=== PATIENT | female | born 1955 | race Caucasian/White ===

== ENCOUNTER → 2017-02-24 | Outpatient (CLI) | payer OTHER ==
[~2017-02-24] MED LIST: CALC0.5C PO; CALCTAB7 PO; CYAN10004 PO; GLUC10007 PO; HYDR-5688 PO; MULT-610 PO; PARO10TA4 PO; VITACAP26 PO; ZOLP5TAB6 PO
[2017-02-24 19:39] LABS: THYROID STIMULATING HORMONE 0.794 uIu/ml (0.300-4.500)
== END | disposition home or self-care (01) ==
LOC: C.LAB 18:32
PROVIDERS: ATTEND Internal Medicine Endocrinology, Diabetes & Metabolism
DX: E03.9 Hypothyroidism, unspecified (principal)

== ENCOUNTER → 2017-05-06 | Outpatient (CLI) | payer OTHER ==
[~2017-05-06] MED LIST changes: -CALC0.5C PO; +CALC0.5C17 PO
[2017-05-06 13:20] LABS: BASO % 0.3 %; BASO ABS # 0.02 K/uL (0-0.2); COMPLETE YES; EOS % 0.7 %; HEMATOCRIT 34.5 % (37-47); IG% 0.4 %; LYMPH % 20.2 %; LYMPH ABS # 1.41 K/uL (1.2-3.4); MEAN CELL VOLUME 92.2 fL (80-100); MEAN CORPUSCULAR HGB CONC 33.6 g/dl (32-36); MEAN PLATELET VOLUME 9.5 fL (7.4-10.4); MONO % 11.2 %; NEUT % 67.2 %; PLATELET COUNT 298 K/uL (130-400); RED BLOOD COUNT 3.74 M/uL (4.2-5.4); WHITE BLOOD COUNT 6.97 K/uL (4.8-10.8)
[2017-05-06 14:03] LABS: ALT/SGPT 19 U/L (12-78); BLOOD UREA NITROGEN 24 mg/dl (7-18); BUN/CREATININE RATIO 28.3 (10-20); CALCIUM 9.1 mg/dl (8.5-10.1); CARBON DIOXIDE 28 mmol/L (21-32); CHLORIDE 105 mmol/L (98-107); CHOLESTEROL 182 mg/dl (0-200); CREATININE 0.86 mg/dl (0.60-1.20); GLUCOSE 104 mg/dl (70-99); SODIUM 140 mmol/L (136-145); TRIGLYCERIDES 70 mg/dl (0-150); VERY LOW DENSITY LIPOPROT CALC 14 mg/dl
[2017-05-06 14:06] LABS: ALKALINE PHOSPHATASE 72 U/L (45-117); AST/SGOT 17 U/L (15-37); CHOLESTEROL/HDL RATIO 3.1; HDL CHOLESTEROL 58 mg/dl; LDL CHOLESTEROL CALCULATED 110 mg/dl
== END | disposition home or self-care (01) ==
LOC: C.LABBC 10:49
PROVIDERS: ATTEND Internal Medicine
DX: E55.9 Vitamin D deficiency, unspecified (principal); D64.9 Anemia, unspecified

== ENCOUNTER → 2017-06-02 | Outpatient (CLI) | payer OTHER | END | disposition home or self-care (01) | LOC: C.MAMM 09:04 | PROVIDERS: ATTEND Internal Medicine | DX: M81.0 Age-related osteoporosis without current pathological fracture (principal); E55.9 Vitamin D deficiency, unspecified ==

== ENCOUNTER → 2017-08-14 | Outpatient (CLI) | payer OTHER ==
[~2017-08-14] MED LIST changes: +CALC0.5C PO; -CALC0.5C17 PO
[2017-08-14 18:10] LABS: BLOOD UREA NITROGEN 28 mg/dl (7-18)
== END | disposition home or self-care (01) ==
LOC: C.LAB1850 15:58
PROVIDERS: ATTEND Internal Medicine Endocrinology, Diabetes & Metabolism
DX: Z00.00 Encounter for general adult medical examination without abnormal findings (principal); Z86.39 Personal history of other endocrine, nutritional and metabolic disease; M81.0 Age-related osteoporosis without current pathological fracture

== ENCOUNTER → 2017-08-19 | Day surgery (SDC) | payer OTHER ==
[~2017-08-19] VITALS: Ht 162.6 cm; Wt 59.0 kg
[~2017-08-19] MED LIST changes: +ZOLEDRONIC ACID INJ 5 MG in EMPTY BAG 0 ML IV SCH
[2017-08-19 14:31] VITALS: BP 124/72; PULSE 98; TEMP 36.6; O2SAT 98; Ht 162.6 cm; Wt 59.0 kg
[2017-08-19 15:09] LABS: CALCIUM 8.9 mg/dl (8.5-10.1)
[2017-08-19 15:18] LABS: CREATININE 0.75 mg/dl (0.60-1.20)
== END | disposition home or self-care (01) ==
LOC: C.MTU 14:23
PROVIDERS: ATTEND Internal Medicine Endocrinology, Diabetes & Metabolism
DX: M81.0 Age-related osteoporosis without current pathological fracture (principal)

== ENCOUNTER 2022-01-10 20:21 | Inpatient (IN) ==
--- NOTE | 2022-01-10 20:43 | Emergency Department Note ---
Impression & Plan Severe sepsis, Acute dehydration, Acute renal failure (ARF) ED Provider Note NAME: VAN FRANCOIS AGE: 66 SEX: F : 1955 ARRIVES VIA: Walk-In INFORMANT: Patient, ED PROVIDER(S): Sha Ramirez MD Chief Complaint: Weakness HPI: Patient presents with concern for weakness fatigue and dehydration related symptoms. The patient states that her symptoms began 4 days prior and the patient had approximately 2 episodes of vomiting. Nonbloody nonbilious. Patient denies any alcohol tobacco or drug use recent changes medications, known sick contacts or recent travel. The patient did have a fever but this only developed today being as high as 101. The patient did not take anything for the fever at home. Patient denies any chest pain shortness of breath or cough. The patient denies any upper respiratory symptoms sore throat or congestion. Patient denies any ear pain. Patient does have some mild upper abdominal pain. It is nonradiating. Patient denies any dysuria or hematuria. Patient is patien t does state that she was prescribed a medication by the doctor but she had called and explained her symptoms and thus was referred here for further evaluation and treatment. ROS: See HPI for pertinent positives and negatives. A total of 10 systems were reviewed and otherwise negative. Past medical history: See below Surgical history: See below Social history: See below Physical Exam: GENERAL: NAD, wearing a mask, non-toxic. EYE EXAM: Normal conjunctiva. PERRL, no anisocoria and EOM's grossly intact w/o pain. NECK: Supple, no nuchal rigidity, no adenopathy, non-tender. No signs of mening ismus. LUNGS: Clear to auscultation. Normal chest wall mechanics. HEART: Tachycardic and regular, no MRG. ABDOMEN: Abdomen soft, left-sided abdominal discomfort, normo-active bowel sounds, no masses, no rebound or guarding. BACK: No CVA TTP. SKIN: No rashes and no bruising. UPPER EXTREMITIES: Upper extremities are grossly normal. LOWER EXTREMITIES: Grossly normal, no edema. NEURO EXAM: A&O x3, cranial nerves II-XII grossly intact, normal speech, moves all 4 extremities on command w/o issue. Differential diagnoses: Sepsis, UTI, pneumonia, metabolic, electrolyte abnormalities, cardiac sources, intracerebral event, toxicologic, neurologic, as well as other pathologies. Course: Patient was seen and evaluated the bedside. Full history physical exam was performed. EKG interpreted by me Sinus tachycardia, rate of 106, normal intervals, normal axis, no ST changes or T WI Imaging Studies: Chest x-ray with no obvious pneumonia. CT abdomen pelvis Mild left-sided hydronephrosis with a possible 6 mm obstructing calculus. Urinary bladder is decompressed uterus and adnexa are unremarkable. No free fluid in the abdomen. Bowel loops are nondilated with mild diffuse edema involving the small bowel and colon which is nonspecific but may be indicative of gastroenteritis or ileus. No pneumoperitoneum. No fluid collection or abscess. Liver is enlarged. Gallbladder pancreas spleen and adrenals are grossly unremarkable. No focal liver lesion is identified. Cardiac monitoring: An order was placed for continuous cardiac monitoring. The monitor shows a rate of 102 with tachycardic rhythm. MDM: Patient presented with tachycardia and hypotension. Given his concerns I did order IV fluids antibiotics and blood work to be completed. The patient otherwise looks modestly well even in light of the patient's hypotension. The patient was not altered. The patient's blood work showed a white count of 13. The patient's platelet count was borderline low at 128. Patient's kidney f unction did show concern for acute renal failure. Patient did receive a noncontrast CT scan. The patient did receive an additional 1500 and given her hypotension was given another liter. Patient's initial lactate was greater than 4. Repeat was less than 4. Upon reassessing the patient multiple times the patient did not look unwell but I did tell the patient that her blood work numbers were concerning. Patient CT abdomen pelvis did show concern for possible retained stone. I did speak with the urology service Jude Smith PA-C who did speak with Dr. Lopez. I did speak the on-call hospitalist given the patient's Pro-Davon was significantly elevated did add MRSA coverage in form of daptomycin. The patient's blood pressure was still low after receiving more than 3 L of IV fluids the decision was made to order Levophed. Patient was subsequently admitted to the intensive care unit pending replete blood work that was ordered by the medicine service. Critical Care: I have personally spent 77 minutes of critical care time in direct management of this patient. This includes bedside care, interpretation of diagnostic studies, and testing, discussion with consultants, patient, and family members, and other require inpatient management activities. This 77 minutes is in excess of all separately billable procedures. Past Med/Surg History Medical History History of hyperparathyroidism Hypothyroidism Surgical History History of gynecologic surgery History of parathyroid surgery S/P thyroid surgery THYROID LOBECTOMY RIGHT LOBE S/P tonsillectomy S/P tooth extraction Family History Grandmother (Paternal) Diabetes Uncle Diabetes Brother Stroke Denies family history of Ovarian cancer Prostate cancer Myocardial infarction Breast cancer Lung cancer Colorectal cancer Hypertension Social History Smoking Status: Never smoker Second Hand Exposure: Yes; Hx Alcohol Use: Yes Alcohol type: hard liquor Alcohol type Comment: mixed drink Alcohol Intake Frequency: Monthly or Less Hx Substance Use: No Preferred Language: Telugu Communication Ability: Effective Visual Impairment: Limited Hearing Ability: Normal Beliefs That Will Affect Care: None marital status: Single Current Living Situation: Alone current occupational status: employed How many Children do You have: 0 Feels Safe at Home: Yes Childhood Exposure to Second-Hand Smoke: Yes caffeine: Yes (drinks coffee daily ) Dental Care, Regularly: No Physical Activity Frequency: Daily Physical Activity Frequency Comment: walking Seatbelt Use: always Sunscreen Use: Yes Allergies Allergies Allergy/AdvReac Type Severity Reaction Status Date / Time No Known Drug Allergies Allergy nkda Verified 01/10/22 23:06 Home Meds Home Medications Medication Instructions Recorded Confirmed ascorbic acid (vitamin C) 500 mg 500 mg PO DAILY cap 05/13/19 01/10/22 capsule calcium carbonate 600 mg calcium 1,200 mg PO DAILY tab 05/13/19 01/10/22 (1,500 mg) tablet cholecalciferol (vitamin D3) 50 2,000 units PO DAILY #90 tab 05/13/19 01/10/22 mcg (2,000 unit) tablet cyanocobalamin (vitamin B-12) 2,000 mcg PO DAILY tab 05/13/19 01/10/22 2,000 mcg tablet oxbpoyjpgmzw-[id number]-[id number] tablet 1 tab PO DAILY 06/06/21 01/10/22 acetaminophen 500 mg tablet 1,000 mg PO Q6H PRN 01/10/22 01/10/22 (Tylenol Extra Strength) Previous Rx's Medication Instructions Recorded paroxetine HCl 10 mg tablet 10 mg PO DAILY #90 tab 01/11/21 levothyroxine 75 mcg tablet See Rx Instructions PO DAILY #15 07/10/21 tab calcitriol 0.5 mcg capsule 1 mcg PO DAILY #60 cap 11/02/21 levothyroxine 50 mcg tablet See Rx Instructions PO DAILY #15 11/12/21 tab ondansetron HCl 4 mg tablet 4 mg PO TID PRN 3 Days #10 tab 01/08/22 Results & Data (ED) Vital Signs Vital Signs - 24 hr 01/10/22 20:30 01/10/22 20:42 01/10/22 20:50 Temperature 37.5 C Temperature Source Oral Pulse Rate 117 H 101 H 98 H Pulse Rate from SpO2 Sensor 100 H Respiratory Rate 18 18 21 Respiratory Effort / Characteristics Non-Labored Spontaneous Respiratory Depth Normal Respiratory Pattern Regular Blood Pressure 69/39 L 65/35 L Blood Pressure Mean 49 45 Blood Pressure Position Sitting Pulse Oximetry 95 96 Oxygen Delivery Method Room Air Sepsis Recent Fever Within 48 Hours No Sepsis New/Unexplained Change in Mental Status No Sepsis Action Taken by Nursing No Action Required 01/10/22 20:55 01/10/22 21:00 01/10/22 21:07 Temperature Temperature Source Pulse Rate 97 H 97 H Pulse Rate from SpO2 Sensor 96 H 91 H Respiratory Rate 23 17 18 Respiratory Effort / Characteristics Non-Labored Spontaneous Respiratory Depth Respiratory Pattern Blood Pressure 67/36 L 63/38 L Blood Pressure Mean 46 46 Blood Pressure Position Pulse Oximetry 96 92 98 Oxygen Delivery Method Room Air Sepsis Recent Fever Within 48 Hours Sepsis New/Unexplained Change in Mental Status Sepsis Action Taken by Nursing 01/10/22 21:10 01/10/22 21:14 01/10/22 21:20 Temperature Temperature Source Pulse Rate 93 H 95 H 95 H Pulse Rate from SpO2 Sensor 91 H 94 H Respiratory Rate 21 18 18 Respiratory Effort / Characteristics Respiratory Depth Respiratory Pattern Blood Pressure 67/39 L 68/39 L Blood Pressure Mean 48 48 Blood Pressure Position Pulse Oximetry 99 98 98 Oxygen Delivery Method Room Air Sepsis Recent Fever Within 48 Hours Sepsis New/Unexplained Change in Mental Status Sepsis Action Taken by Nursing 01/10/22 21:23 01/10/22 21:30 01/10/22 21:40 Temperature Temperature Source Pulse Rate 90 87 98 H Pulse Rate from SpO2 Sensor 90 87 94 H Respiratory Rate 23 24 22 Respiratory Effort / Characteristics Respiratory Depth Respiratory Pattern Blood Pressure 69/41 L 73/44 L 67/46 L Blood Pressure Mean 50 53 53 Blood Pressure Position Pulse Oximetry 98 99 96 Oxygen Delivery Method Sepsis Recent Fever Within 48 Hours Sepsis New/Unexplained Change in Mental Status Sepsis Action Taken by Nursing 01/10/22 21:50 01/10/22 22:10 01/10/22 22:12 Temperature Temperature Source Pulse Rate 97 H 74 86 Pulse Rate from SpO2 Sensor 90 86 85 Respiratory Rate 20 15 22 Respiratory Effort / Characteristics Respiratory Depth Respiratory Pattern Blood Pressure 70/42 L 70/41 L Blood Pressure Mean 51 50 Blood Pressure Position Pulse Oximetry 95 94 96 Oxygen Delivery Method Sepsis Recent Fever Within 48 Hours Sepsis New/Unexplained Change in Mental Status Sepsis Action Taken by Nursing 01/10/22 22:20 01/10/22 22:30 01/10/22 22:36 Temperature Temperature Source Pulse Rate 84 89 68 Pulse Rate from SpO2 Sensor 84 88 87 Respiratory Rate 23 21 22 Respiratory Effort / Characteristics Respiratory Depth Respiratory Pattern Blood Pressure 70/43 L 71/41 L Blood Pressure Mean 52 51 Blood Pressure Position Pulse Oximetry 95 95 96 Oxygen Delivery Method Sepsis Recent Fever Within 48 Hours Sepsis New/Unexplained Change in Mental Status Sepsis Action Taken by Nursing 01/10/22 22:40 01/10/22 22:50 01/10/22 22:51 Temperature Temperature Source Pulse Rate 87 80 67 Pulse Rate from SpO2 Sensor 87 87 89 Respiratory Rate 23 23 23 Respiratory Effort / Characteristics Respiratory Depth Respiratory Pattern Blood Pressure 71/44 L Blood Pressure Mean 53 Blood Pressure Position Pulse Oximetry 96 95 95 Oxygen Delivery Method Sepsis Recent Fever Within 48 Hours Sepsis New/Unexplained Change in Mental Status Sepsis Action Taken by Nursing 01/10/22 22:52 01/10/22 23:00 01/10/22 23:10 Temperature Temperature Source Pulse Rate 88 90 89 Pulse Rate from SpO2 Sensor 88 90 89 Respiratory Rate 23 21 20 Respiratory Effort / Characteristics Respiratory Depth Respiratory Pattern Blood Pressure 69/45 L 59/41 L 70/39 L Blood Pressure Mean 53 47 49 Blood Pressure Position Pulse Oximetry 96 96 96 Oxygen Delivery Method Sepsis Recent Fever Within 48 Hours Sepsis New/Unexplained Change in Mental Status Sepsis Action Taken by Nursing 01/10/22 23:20 01/10/22 23:30 01/10/22 23:40 Temperature Temperature Source Pulse Rate 77 88 86 Pulse Rate from SpO2 Sensor 88 Respiratory Rate 23 20 23 Respiratory Effort / Characteristics Respiratory Depth Respiratory Pattern Blood Pressure 72/45 L 71/50 L 72/43 L Blood Pressure Mean 54 57 52 Blood Pressure Position Pulse Oximetry 97 98 Oxygen Delivery Method Sepsis Recent Fever Within 48 Hours Sepsis New/Unexplained Change in Mental Status Sepsis Action Taken by Nursing 01/10/22 23:50 01/11/22 00:00 01/11/22 00:10 Temperature Temperature Source Pulse Rate 88 90 90 Pulse Rate from SpO2 Sensor Respiratory Rate 20 23 20 Respiratory Effort / Characteristics Respiratory Depth Respiratory Pattern Blood Pressure 72/42 L 76/42 L 69/42 L Blood Pressure Mean 52 53 51 Blood Pressure Position Pulse Oximetry 96 Oxygen Delivery Method Sepsis Recent Fever Within 48 Hours Sepsis New/Unexplained Change in Mental Status Sepsis Action Taken by Nursing 01/11/22 00:20 01/11/22 00:30 01/11/22 00:40 Temperature Temperature Source Pulse Rate 88 88 Pulse Rate from SpO2 Sensor 88 88 88 Respiratory Rate 24 23 26 H Respiratory Effort / Characteristics Respiratory Depth Respiratory Pattern Blood Pressure 75/46 L 75/43 L 77/47 L Blood Pressure Mean 55 53 57 Blood Pressure Position Pulse Oximetry 91 94 93 Oxygen Delivery Method Sepsis Recent Fever Within 48 Hours Sepsis New/Unexplained Change in Mental Status Sepsis Action Taken by Nursing 01/11/22 00:46 01/11/22 00:50 Temperature 36.8 C Temperature Source Oral Pulse Rate 89 Pulse Rate from SpO2 Sensor 90 Respiratory Rate 20 Respiratory Effort / Characteristics Respiratory Depth Respiratory Pattern Blood Pressure 87/44 L Blood Pressure Mean 58 Blood Pressure Position Pulse Oximetry 93 Oxygen Delivery Method Sepsis Recent Fever Within 48 Hours Sepsis New/Unexplained Change in Mental Status Sepsis Action Taken by [facility] Medications Current Medication List: was personally reviewed by me Laboratory Data Attestation: I reviewed the patient's lab results. Result diagrams: 01/11/22 00:25 01/10/22 20:47 Lab Results 01/10/22 01/10/22 01/10/22 Range/Units 20:47 20:47 20:47 WBC 13.61 H (4.8-10.8) K/uL RBC 3.35 L (4.2-5.4) M/uL Hgb 10.6 L (12.0-16.0) g/dL Hct 30.8 L (37-47) % MCV 91.9 (80-100) fL MCH 31.6 (25-34) pg MCHC 34.4 (32-36) g/dL RDW Std Deviation 47.6 H (36.4-46.3) fL RDW Coeff of Tucker 14.2 (11.5-14.5) % Plt Count 128 L (130-400) K/uL MPV 10.7 H (7.4-10.4) fL Immature Gran % (Auto) 5.1 % Neut % (Auto) 91.3 % Lymph % (Auto) 2.6 % [place] % (Auto) 1.0 % Eos % (Auto) 0.0 % Baso % (Auto) 0.0 % Neut # (Auto) 12.43 H (1.4-6.5) K/uL Lymph # (Auto) 0.36 L (1.2-3.4) K/uL [place] # (Auto) 0.13 (0.11-0.59) K/uL Eos # (Auto) 0.00 (0-0.5) K/uL Baso # (Auto) 0.00 (0-0.2) K/uL Immature Gran # (Auto) 0.69 H (0.00-0.02) K/uL Toxic Vacuolation 2+ Dohle Bodies 2+ PT 10.6 (9.0-12.0) Seconds INR 1.0 (0.9-1.1) APTT 31.4 H (21.0-31.0) Seconds PTT Ratio 1.1 Sodium 124 L (136-145) mmol/L Potassium 4.2 (3.5-5.1) mmol/L Chloride 87 L (98-107) mmol/L Carbon Dioxide 20 L (21-32) mmol/L Anion Gap 17 H (3-11) BUN 65 H (6-23) mg/dl Creatinine 5.27 H* (0.6-1.2) mg/dl Est Cr Clr Drug Dosing 9.2 ml/min Est GFR ( Amer) 9.2 ml/min Est GFR (Non-Af Amer) 7.9 ml/min BUN/Creatinine Ratio 12.3 (10-20) Glucose 85 (70-99(Fasting)) mg/dl Lactate (0.4-2.0) mmol/L Calcium 8.7 (8.5-10.1) mg/dl Magnesium 1.8 (1.7-2.4) mg/dl Total Bilirubin 1.1 H (0.2-1.0) mg/dl AST 105 H (13-39) U/L ALT 36 (7-52) U/L Alkaline Phosphatase 156 H (34-104) U/L Total Protein 6.3 (6.0-8.3) gm/dl Albumin 3.2 L (3.4-5.0) gm/dl Globulin 3.1 (2.5-4.0) gm/dl Albumin/Globulin Ratio 1.0 (0.9-2) Procalcitonin (0-0.5) ng/ml Urine Color Urine Appearance (Clear) Urine pH (4.5-7.5) Ur Specific [place] (1.000-1.030) Urine Protein (Negative) Urine Glucose (UA) (Negative) Urine Ketones (Negative) Urine Blood (Negative) Urine Nitrite (Negative) Urine Bilirubin (Negative) Urine Urobilinogen (Negative) Ur Leukocyte Esterase (Negative) Urine WBC (Auto) (0-5) /hpf Urine RBC (Auto) (0-4) /hpf U Hyaline Cast (Auto) (0-5) /lpf U Epithel Cells (Auto) (0-5) /lpf Urine Bacteria (Auto) (Negative) Ur Renal Epithelial Cell Calcium Oxalate Crystal (None Prsent) Granular Casts (0) /lpf Urine Yeast SARS-CoV-2, RNA, NAAT (NEGATIVE) 01/10/22 01/10/22 01/10/22 Range/Units 20:47 20:51 20:55 WBC (4.8-10.8) K/uL RBC (4.2-5.4) M/uL Hgb (12.0-16.0) g/dL Hct (37-47) % MCV (80-100) fL MCH (25-34) pg MCHC (32-36) g/dL RDW Std Deviation (36.4-46.3) fL RDW Coeff of Tucker (11.5-14.5) % Plt Count (130-400) K/uL MPV (7.4-10.4) fL Immature Gran % (Auto) % Neut % (Auto) % Lymph % (Auto) % [place] % (Auto) % Eos % (Auto) % Baso % (Auto) % Neut # (Auto) (1.4-6.5) K/uL Lymph # (Auto) (1.2-3.4) K/uL [place] # (Auto) (0.11-0.59) K/uL Eos # (Auto) (0-0.5) K/uL Baso # (Auto) (0-0.2) K/uL Immature Gran # (Auto) (0.00-0.02) K/uL Toxic Vacuolation Dohle Bodies PT (9.0-12.0) Seconds INR (0.9-1.1) APTT (21.0-31.0) Seconds PTT Ratio Sodium (136-145) mmol/L Potassium (3.5-5.1) mmol/L Chloride (98-107) mmol/L Carbon Dioxide (21-32) mmol/L Anion Gap (3-11) BUN (6-23) mg/dl Creatinine (0.6-1.2) mg/dl Est Cr Clr Drug Dosing ml/min Est GFR ( Amer) ml/min Est GFR (Non-Af Amer) ml/min BUN/Creatinine Ratio (10-20) Glucose (70-99(Fasting)) mg/dl Lactate 4.2 H* (0.4-2.0) mmol/L Calcium (8.5-10.1) mg/dl Magnesium (1.7-2.4) mg/dl Total Bilirubin (0.2-1.0) mg/dl AST (13-39) U/L ALT (7-52) U/L Alkaline Phosphatase (34-104) U/L Total Protein (6.0-8.3) gm/dl Albumin (3.4-5.0) gm/dl Globulin (2.5-4.0) gm/dl Albumin/Globulin Ratio (0.9-2) Procalcitonin > 200.00 H (0-0.5) ng/ml Urine Color Urine Appearance (Clear) Urine pH (4.5-7.5) Ur Specific [place] (1.000-1.030) Urine Protein (Negative) Urine Glucose (UA) (Negative) Urine Ketones (Negative) Urine Blood (Negative) Urine Nitrite (Negative) Urine Bilirubin (Negative) Urine Urobilinogen (Negative) Ur Leukocyte Esterase (Negative) Urine WBC (Auto) (0-5) /hpf Urine RBC (Auto) (0-4) /hpf U Hyaline Cast (Auto) (0-5) /lpf U Epithel Cells (Auto) (0-5) /lpf Urine Bacteria (Auto) (Negative) Ur Renal Epithelial Cell Calcium Oxalate Crystal (None Prsent) Granular Casts (0) /lpf Urine Yeast SARS-CoV-2, RNA, NAAT NEGATIVE (NEGATIVE) 01/10/22 01/10/22 01/11/22 Range/Units 22:34 23:28 00:25 WBC 25.34 H D (4.8-10.8) K/uL RBC 2.75 L (4.2-5.4) M/uL Hgb 8.8 L (12.0-16.0) g/dL Hct 24.8 L (37-47) % MCV 90.2 (80-100) fL MCH 32.0 (25-34) pg MCHC 35.5 (32-36) g/dL RDW Std Deviation 47.8 H (36.4-46.3) fL RDW Coeff of Tucker 14.4 (11.5-14.5) % Plt Count 105 L (130-400) K/uL MPV 11.0 H (7.4-10.4) fL Immature Gran % (Auto) % Neut % (Auto) % Lymph % (Auto) % [place] % (Auto) % Eos % (Auto) % Baso % (Auto) % Neut # (Auto) (1.4-6.5) K/uL Lymph # (Auto) (1.2-3.4) K/uL [place] # (Auto) (0.11-0.59) K/uL Eos # (Auto) (0-0.5) K/uL Baso # (Auto) (0-0.2) K/uL Immature Gran # (Auto) (0.00-0.02) K/uL Toxic Vacuolation Dohle Bodies PT (9.0-12.0) Seconds INR (0.9-1.1) APTT (21.0-31.0) Seconds PTT Ratio Sodium (136-145) mmol/L Potassium (3.5-5.1) mmol/L Chloride (98-107) mmol/L Carbon Dioxide (21-32) mmol/L Anion Gap (3-11) BUN (6-23) mg/dl Creatinine (0.6-1.2) mg/dl Est Cr Clr Drug Dosing ml/min Est GFR ( Amer) ml/min Est GFR (Non-Af Amer) ml/min BUN/Creatinine Ratio (10-20) Glucose (70-99(Fasting)) mg/dl Lactate 3.1 H* (0.4-2.0) mmol/L Calcium (8.5-10.1) mg/dl Magnesium (1.7-2.4) mg/dl Total Bilirubin (0.2-1.0) mg/dl AST (13-39) U/L ALT (7-52) U/L Alkaline Phosphatase (34-104) U/L Total Protein (6.0-8.3) gm/dl Albumin (3.4-5.0) gm/dl Globulin (2.5-4.0) gm/dl Albumin/Globulin Ratio (0.9-2) Procalcitonin (0-0.5) ng/ml Urine Color Dark Yellow Urine Appearance Turbid A (Clear) Urine pH 5.0 (4.5-7.5) Ur Specific [place] 1.025 (1.000-1.030) Urine Protein 2+ H (Negative) Urine Glucose (UA) Negative (Negative) Urine Ketones Trace H (Negative) Urine Blood 3+ H (Negative) Urine Nitrite Negative (Negative) Urine Bilirubin 1+ H (Negative) Urine Urobilinogen Negative (Negative) Ur Leukocyte Esterase 2+ H (Negative) Urine WBC (Auto) >30 H (0-5) /hpf Urine RBC (Auto) 5-10 H (0-4) /hpf U Hyaline Cast (Auto) 1-5 (0-5) /lpf U Epithel Cells (Auto) >30 H (0-5) /lpf Urine Bacteria (Auto) 2+ H (Negative) Ur Renal Epithelial Cell Not Reportable Calcium Oxalate Crystal Present A (None Prsent) Granular Casts 5-10 H (0) /lpf Urine Yeast Not Reportable SARS-CoV-2, RNA, NAAT (NEGATIVE) Administered Medications Norepinephrine Bitartrate (Levophed/D5w) 8 mg in 508 mls @ 10.592 mls/hr IV .Q24H STACIA; Protocol Stop: 02/09/22 23:44 Last Admin: 01/11/22 00:21 Dose: 0.05 mcg/kg/min, 10.6 mls/hr Documented by: [id number] Cosigned by: [id number] Discontinued Medications Piperacillin Sod/Tazobactam Sod (Zosyn) 4.5 gm in 120 mls @ 240 mls/hr IV NOW ONE Stop: 01/10/22 21:16 Last Infusion: 01/10/22 21:30 Dose: 0 mls/hr Documented by: [id number] Admin: 01/10/22 20:57 Dose: 240 mls/hr Documented by: [id number] Sodium Chloride (Nss 1000ml) 1,000 mls @ 999 mls/hr IV .Q1H1M ONE Stop: 01/10/22 21:49 Last Infusion: 01/10/22 21:39 Dose: 0 mls/hr Documented by: [id number] Admin: 01/10/22 20:57 Dose: 999 mls/hr Documented by: [id number] Sodium Chloride (Nss) 500 mls @ 999 mls/hr IV .Q31M ONE Stop: 01/10/22 21:19 Last Infusion: 01/10/22 21:57 Dose: 0 mls/hr Documented by: [id number] Admin: 01/10/22 20:57 Dose: 999 mls/hr Documented by: [id number] Sodium Chloride (Nss 1000ml) 1,000 mls @ 999 mls/hr IV .Q1H1M ONE Stop: 01/10/22 22:49 Last Infusion: 01/10/22 23:03 Dose: 0 mls/hr Documented by: [id number] Admin: 01/10/22 21:56 Dose: 999 mls/hr Documented by: [id number] Sodium Chloride (Nss 1000ml) 1,000 mls @ 999 mls/hr IV .Q1H1M ONE Stop: 01/11/22 00:04 Last Infusion: 01/11/22 00:40 Dose: 0 mls/hr Documented by: [id number] Admin: 01/10/22 23:31 Dose: 999 mls/hr Documented by: [id number] Daptomycin 325 mg/ Syringe 6.5 mls @ 3.25 mls/min IV NOW ONE; Protocol Stop: 01/10/22 23:45 Last Admin: 01/11/22 00:21 Dose: 3.25 mls/min Documented by: [id number] Discharge Plan Visit Data Chief Complaint: Fever Stated Complaint: FEVER ED Provider: Sha Ramirez Discharge Problem: Severe sepsis, Acute dehydration, Acute renal failure (ARF) Patient Disposition: Admitted As Inpatient Discharge Instructions Interventions: ED Discharge Assessment Last Done: 01/11/22 00:44
[2022-01-10] MEDS ORDERED: PIPERACILL/TAZOBAC CONSULT ACTIVE PRN (20:47)
[2022-01-10] MEDS ORDERED: PIPERACILLIN/TAZOBACTAM 4.5 GM/120 ML BAG IV ONE (20:47)
[2022-01-10] MEDS ORDERED: SODIUM CHLORIDE 0.9% 1000ML 1,000 ML IV ONE ×3 (20:49→23:04)
[2022-01-10] MEDS ORDERED: SODIUM CHLORIDE 0.9% 500 ML IV ONE (20:49)
[2022-01-10 21:03] LABS: Hematocrit (blood only) 30.8 % (37-47); Hemoglobin 10.6 g/dL (12.0-16.0); Mean Corpuscular Hemoglobin 31.6 pg (25-34); Mean Corpuscular Hgb Conc 34.4 g/dL (32-36); Mean Corpuscular Volume 91.9 fL (80-100); Mean Platelet Volume 10.7 fL (7.4-10.4); Platelet Count 128 K/uL (130-400); RDW Coefficient of Variation 14.2 % (11.5-14.5); RDW Standard Deviation 47.6 fL (36.4-46.3); Red Blood Count 3.35 M/uL (4.2-5.4); White Blood Count 13.61 K/uL (4.8-10.8)
[2022-01-10 21:21] LABS: Dohle Bodies 2+; Immature Granulocytes # (auto) 0.69 K/uL (0.00-0.02); Immature Granulocytes % (auto) 5.1 %; Lymphocytes # (auto) 0.36 K/uL (1.2-3.4); Lymphocytes % (auto) 2.6 %; Monocytes # (auto) 0.13 K/uL (0.11-0.59); Neutrophils # (auto) 12.43 K/uL (1.4-6.5); Neutrophils % (auto) 91.3 %; Toxic Vacuolation 2+
[2022-01-10 21:35] LABS: Partial Thromboplastin Ratio 1.1; Partial Thromboplastin Time 31.4 Seconds (21.0-31.0); Prothrombin Time 10.6 Seconds (9.0-12.0)
[2022-01-10 21:48] LABS: Albumin Level 3.2 gm/dl (3.4-5.0); BUN Creatinine Ratio 12.3 (10-20); Bilirubin,Total 1.1 mg/dl (0.2-1.0); Calcium 8.7 mg/dl (8.5-10.1); Creatinine Clr Calc Pharmacy 9.2 ml/min; Est GFR (African American) 9.2 ml/min; Est GFR (Non-African American) 7.9 ml/min; Globulin 3.1 gm/dl (2.5-4.0); Magnesium 1.8 mg/dl (1.7-2.4); Potassium 4.2 mmol/L (3.5-5.1); Total Protein 6.3 gm/dl (6.0-8.3)
[2022-01-10] MEDS ORDERED: DAPTOmycin 325 MG in SYRINGE 0 ML IV ONE (23:44)
[2022-01-10] MEDS ORDERED: STAT IV Infusion **Titration per Protocol STA (23:57)
[2022-01-11] LABS: Appearance Urine Turbid (Clear); Blood Urine 3+ (Negative); Color Urine Dark Yellow; Epithelial Cell Urine Auto >30 /lpf (0-5); Glucose Urine UA Negative (Negative); Ketones Urine Trace (Negative); Leukocyte Esterase Urine 2+ (Negative); Nitrite Urine Negative (Negative); Protein Urine 2+ (Negative); Specific Gravity Urine 1.025 (1.000-1.030); Urobilinogen Urine Negative (Negative); WBC Urine Automated >30 /hpf (0-5)
[2022-01-11 00:07] LABS: Bilirubin Urine 1+ (Negative)
--- NOTE | 2022-01-11 00:08 | Urology Consultation ---
Date of Consultation January 10, 2022 Assessment & Plan (1) Severe sepsis: I discussed the case with the treating emergency room physician as well as the admitting hospitalist. There is concern the patient's severe sepsis is secondary to urinary source. The patient is going to continue receiving intravenous fluids She is going to continue receiving broad-spectrum antibiotics Due to the patient's hypotension being admitted to the intensive care unit appropriate pressors can be administered The patient does have abdominal pain and an elevated alkaline phosphatase level so they are planning on ordering a right upper quadrant abdominal ultrasound. It also appears patient may be suffering from a gastroenteritis and supportive care will be employed as outlined above with intravenous fluids and antibiotics. I discussed the case with my attending physician Dr. Lopez urology and he recommends proceeding as follows: We will await the patient's urine specimen to see if she has a specimen indicative of urinary tract infection Due to the patient's laboratory findings at time of admission he recommends continuing intravenous fluids but also recommended repeating labs at this time to see if she has had any clinical response to the fluid administered. Once we have the patient's urine specimen back and repeat labs Dr. Lopez will determine if patient will require an emergent cystoscopy with potential ureteral stent placement ventricular Would recommend keeping the patient n.p.o. for the present time until it is determined whether or not the patient will require any treatment any procedural intervention. Supervising Physician Co-Signing Physician Notes 66-year-old female with leukocytosis, MANDIE, urinalysis concerning for infection and CT scan showing left hydronephrosis and a suspected left distal ureteral calculus. Booked emergently for cystoscopy with left ureteral stent placement. Risk and benefits discussed and consent obtained. Patient marked. History of Present Illness Reason for Consultation: Severe sepsis concern for urinary source History of Present Illness This is a 66-year-old lady mild pain who presented to [facility] secondary to 24 days of intermittent nausea vomiting and fevers. Patient also reports occasional shakes back pain. She notes some generalized abdominal pain and also reports some mild dizziness as well as diarrhea. She says her oral intake has not been good over the same timeframe and her most recent oral intake was approximately 24 hours ago. She denies any prior history of kidney stones. Patient presented to the emergency department she had labs and imaging which I independently reviewed. Patient did have a CT scan of the abdomen and pelvis that showed mild left hydronephrosis with a 9 mm left calyceal kidney stone which was nonobstructive however the patient was noted to have a 6 mm distal left ureteral stone. She had a chest x-ray was not indicative of distended. Labs include a CBC her white blood cell count is 13.6. Her hemoglobin and hematocrit were 10.6 and 30.8. (Her hemoglobin and hematocrit were not far from her baseline levels platelet count was 121,000. Chemistry profile showed sodium and potassium are 124 and 4.2. BUN and creatinine were 65 and 5.2. (Creatinine usually runs within the normal range). Initial lactic acid level was 4.2 and a COVID test was negative. Initial lactic acid level was 4.2.The patient did receive 2.5 L of normal saline solution and additional 1 L is currently running. Repeat lactic acid level was checked and was noted to have decreased to 3.1. A procalcitonin level was greater than 200. A urinalysis was sent and is currently pending. In the emergency department the patient was treated with intravenous fluids. By the time of my arrival the patient had received 2.5 L of normal saline solution with 1/3 L hanging. She also received antibiotics in the form of Zosyn and daptomycin. It should be noted that the patient was noted to be afebrile upon presentation to the emergency department with a pulse ox of 99% on room air. She was not tachycardic. She was noted to be hypotensive with a blood pressure of approximately 69/39 upon presentation and this had risen to 73/44 with the above-noted treatment. At the time of my interview the patient is resting comfortably in bed and she is in no distress. Allergies Allergy/AdvReac Type Severity Reaction Status Date / Time No Known Drug Allergies Allergy nkda Verified 01/10/22 23:06 Patient History Medical History History of hyperparathyroidism Hypothyroidism Surgical History History of gynecologic surgery History of parathyroid surgery S/P thyroid surgery THYROID LOBECTOMY RIGHT LOBE S/P tonsillectomy S/P tooth extraction Family History Grandmother (Paternal) Diabetes Uncle Diabetes Brother Stroke Denies family history of Ovarian cancer Prostate cancer Myocardial infarction Breast cancer Lung cancer Colorectal cancer Hypertension Social History Smoking Status: Never smoker Second Hand Exposure: Yes; Hx Alcohol Use: Yes Alcohol type: hard liquor Alcohol type Comment: mixed drink Alcohol Intake Frequency: Monthly or Less Hx Substance Use: No Preferred Language: [place] Islander Communication Ability: Effective Visual Impairment: Limited Hearing Ability: Normal Beliefs That Will Affect Care: None marital status: Single Current Living Situation: Alone current occupational status: employed How many Children do You have: 0 Feels Safe at Home: Yes Childhood Exposure to Second-Hand Smoke: Yes caffeine: Yes (drinks coffee daily ) Dental Care, Regularly: No Physical Activity Frequency: Daily Physical Activity Frequency Comment: walking Seatbelt Use: always Sunscreen Use: Yes Review of Systems Constitutional: + fever Eyes: no diplopia Ear, Nose, Mouth, Throat: no hearing loss Respiratory: no cough and no dyspnea Cardiovascular: no chest pain Gastrointestinal: + abdominal pain, + nausea, + vomiting and + diarrhea/loose stools Genitourinary: no dysuria, no hematuria and no flank pain Musculoskeletal: + back pain Integumentary: no rash Neurologic: no localized weakness Physical Exam Constitutional: + ill appearing and + thin; no acute distress Eyes: no conjunctival abnormality ENMT: Ears: no hearing impairment and no external ear abnormality Patient's mucous membranes of her oropharynx appeared significantly dry Neck: trachea midline Respiratory: normal respiratory effort; no respiratory distress and no labored breathing Lungs were clear to auscultation Cardiovascular: Rate/Rhythm: regular rate and regular rhythm Vessels: dorsalis pedis pulses present and radial pulses present Gastrointestinal (Abdomen): Abdomen is soft and nondistended. The patient did have pain with palpation in the right lower quadrant. There was no rebound tenderness or guarding. Musculoskeletal: No calf tenderness. Patient's extremities were non-splinted with mottled until she goes over there Skin: + turgor decreased Neurologic: moves all extremities Psychiatric: A+Ox3, euthymic affect Genitourinary: no CVA tenderness Results & Data ([facility]) Vital Signs (Past 12 Hours) Vital Signs Temp Pulse Resp BP Pulse Ox 01/10/22 21:30 87 24 73/44 L 99 01/10/22 21:23 90 23 69/41 L 98 01/10/22 21:20 95 H 18 68/39 L 98 01/10/22 21:14 95 H 18 98 01/10/22 21:10 93 H 21 67/39 L 99 01/10/22 21:07 18 98 01/10/22 21:00 97 H 17 63/38 L 92 01/10/22 20:55 97 H 23 67/36 L 96 01/10/22 20:50 98 H 21 65/35 L 01/10/22 20:42 101 H 18 96 01/10/22 20:30 37.5 C 117 H 18 69/39 L 95 PG Care Time/CCT Total # of Minutes Spent Total Time Spent with Patient: Total time spent is greater than 50% in coordination of care (as documented) at patient's floor/unit and/or counseling patient: Coding Level of Care Code 22721 Inpt Consult Level 5 Diagnoses Severe sepsis A41.9; R65.20
--- NOTE | 2022-01-11 00:12 | History & Physical Report ---
Date of Service January 11, 2022 Assessment & Plan (1) Septic shock: Plan: 66yo female with history of hypothyroidism, hyperparathyroidism and depression presenting with 3-4 days of generalized illness, nausea with non-bloody/non-bilious emesis, fevers/chills/rigors as well as abdominal pain and back pain. Patient with septic shock in the ER. Afebrile, Tachycardic, hypotensive in the ER. Neutrophil predominant leukocytosis with WBC=13.61 Elevated procalcitonin >200 Elevated lactate 4.2 --> 3.1 after 2L NSS Patient started on Levophed at 0.05mcg/kg/min with improvement in BP Unclear source. Possibly secondary to infected nephrolithiasis - UA appears to be infected with 2+ bacteria and calcium oxalate crystals. Other consideration liver/biliary infection as she has mild elevation in AP and Tbili as well as abdominal pain - RLQ more so than RUQ. No CBD dilatation or stones noted on CT imaging, however. Bacteremia suspected -Admit to MICU -Follow cultures - blood and urine sent from ER -Check Lipase, VBG, random cortisol -Check RUQ US -Continue Levophed gtt - goal MAP >65 -Empiric coverage with Zosyn and Daptomycin -Tylenol as needed for pain and fever -Keep NPO -Urology consultation appreciated - awaiting repeat labs to decide to proceed with cystoscopy tonight vs medical management Neuro - History of depression. Controlled on medication -Continue Paxil 10mg po daily CV - hypotension, septic shock -Levophed gtt Pulmonary - no active issues. Adequate oxygenation on room air. No cough/SOB/wheeze. CXR unremarkable. Covid-19 negative GI - mild elevation of AP and TBili -Check RUQUS -Repeat LFTs in AM -Empiric Zosyn - MANDIE with BUN of 65 (from 21 in 08/2021) and Cr of 5.25 (from 0.88 in 08/2021). Suspect prerenal etiology in setting of hypotension, dehydration and septic shock. Hyponatremia with Lu=921, AG=17. K within normal limits at 4.2 -Check urine electrolytes for FeNA -Check CK -IVF and Vasopressors as above -Avoid nephrotoxic agents -Renal dosing as above -Repeat chemistry in AM to monitor Na -[place] in place, monitor UOP Heme - leukocytosis, normochromic/normocytic anemia and thrombocytopenia in setting of sepsis. No active bleeding -Repeat CBC in AM Endo - history of hypothyroidism and hyperparathyroidism -Check TSH -Continue Synthroid, Calcitriol ID - Septic shock. Source unclear - possibly infected renal stone vs abdominal vs bacteremia -Zosyn, Daptomycin -Follow cultures -Ongoing IVF and Levophed for hemodynamic support F/E/N - Normosol at 125mL/hr x 2 liters, monitor electroltyes, NPO Ppx - SCDs Code - Full Code per discussion with patient Dispo - Admit to MICU (2) Hypothyroidism: (3) History of hyperparathyroidism: (4) Endogenous depression: (5) Renal stone: History of Present Illness Chief Complaint: septic shock Primary Care Provider: Gamaliel Santos MD Chelsey Cm is a 66yo female with history of hypothyroidism, hyperpar athyroidism presenting with septic shock. Patient reports developing nausea with several episodes of non-bloody/non-bilious emesis 3 days ago. She has had intermittent fever ranging 99-102 degrees over the last 3 days with intermittent rigors as well. She has had mild right sided abdominal pain, back pain and diarrhea as well. No additional complaints. She denies chest pain, cough, SOB, denies dysuria. She has not been eating well - last meal was 01/09/22 at 02:00. She has been trying to drink fluids. Patient hypotensive in the ER with BP ranging 63-73 / 35-44. She received 3.5L of NSS with minimal improvement in blood pressure. Levophed initiated. Patient is awake and alert, answering questions appropriately. No additional complaints at this time. ER Course: NSS x 3.5L, Zosyn 4.5gm, Dapto 325mg, Levophed Allergies Allergy/AdvReac Type Severity Reaction Status Date / Time No Known Drug Allergies Allergy nkda Verified 01/10/22 23:06 Home Medications Medication Instructions Recorded Confirmed Type ascorbic acid (vitamin C) 500 mg 500 mg PO DAILY cap 05/13/19 01/10/22 History capsule calcium carbonate 600 mg calcium 1,200 mg PO DAILY tab 05/13/19 01/10/22 History (1,500 mg) tablet cholecalciferol (vitamin D3) 50 2,000 units PO DAILY #90 tab 05/13/19 01/10/22 History mcg (2,000 unit) tablet cyanocobalamin (vitamin B-12) 2,000 mcg PO DAILY tab 05/13/19 01/10/22 History 2,000 mcg tablet paroxetine HCl 10 mg tablet 10 mg PO DAILY #90 tab 01/11/21 01/10/22 Rx vvnukkjepqlu-ojamhcdr-arhntq tablet 1 tab PO DAILY 06/06/21 01/10/22 History levothyroxine 75 mcg tablet See Rx Instructions PO DAILY #15 07/10/21 01/10/22 Rx tab calcitriol 0.5 mcg capsule 1 mcg PO DAILY #60 cap 11/02/21 01/10/22 Rx levothyroxine 50 mcg tablet See Rx Instructions PO DAILY #15 11/12/21 01/10/22 Rx tab ondansetron HCl 4 mg tablet 4 mg PO TID PRN 3 Days #10 tab 01/08/22 01/10/22 Rx acetaminophen 500 mg tablet 1,000 mg PO Q6H PRN 01/10/22 01/10/22 History (Tylenol Extra Strength) Past Med/Surg History Medical History History of hyperparathyroidism Hypothyroidism Surgical History History of gynecologic surgery History of parathyroid surgery S/P thyroid surgery THYROID LOBECTOMY RIGHT LOBE S/P tonsillectomy S/P tooth extraction Family History Grandmother (Paternal) Diabetes Uncle Diabetes Brother Stroke Denies family history of Ovarian cancer Prostate cancer Myocardial infarction Breast cancer Lung cancer Colorectal cancer Hypertension Social History Smoking Status: Never smoker Second Hand Exposure: Yes; Hx Alcohol Use: Yes Alcohol type: hard liquor Alcohol type Comment: mixed drink Alcohol Intake Frequency: Monthly or Less Hx Substance Use: No Preferred Language: French Communication Ability: Effective Visual Impairment: Limited Hearing Ability: Normal Beliefs That Will Affect Care: None marital status: Single Current Living Situation: Alone current occupational status: employed How many Children do You have: 0 Feels Safe at Home: Yes Childhood Exposure to Second-Hand Smoke: Yes caffeine: Yes (drinks coffee daily ) Dental Care, Regularly: No Physical Activity Frequency: Daily Physical Activity Frequency Comment: walking Seatbelt Use: always Sunscreen Use: Yes Review of Systems Review of Systems: All systems reviewed & are unremarkable except as noted in HPI & below Physical Exam Physical Exam: General: patient resting comfortably, NAD, non-toxic in appearance, AA&O x 4 Skin: warm, dry, intact, no rashes or lesions HEENT: NC/AT, PERRL, EOMI, anicteric sclera, conjunctiva without injection, external ear normal to inspection and nontender, nares patent, DRY mucus membranes, dentition intact, no oropharyngeal lesions, neck supple, trachea midline, no LAD, no thyromegaly, no JVD Heart: +S1/S2, regular, no m/r/g Lungs: equal air entry bilaterally, no rales/rhonchi/wheezes Abd: +BS, soft, tender in RLQ without rebound/guarding/peritoneal signs, no CVA tenderness Ext: warm, 2+ pulses in UE/LE bilaterally, no clubbing/cyanosis or edema Neuro: nonfocal, patient AA&O x 4, speech intact, no facial droop, moving all extremities on command with equal strength 5/5 Results & Data Results & Data ([facility]) Vital Signs (Past 12 Hours) Vital Signs Temp Pulse Resp BP Pulse Ox 01/10/22 21:30 87 24 73/44 L 99 01/10/22 21:23 90 23 69/41 L 98 01/10/22 21:20 95 H 18 68/39 L 98 01/10/22 21:14 95 H 18 98 01/10/22 21:10 93 H 21 67/39 L 99 01/10/22 21:07 18 98 01/10/22 21:00 97 H 17 63/38 L 92 01/10/22 20:55 97 H 23 67/36 L 96 01/10/22 20:50 98 H 21 65/35 L 01/10/22 20:42 101 H 18 96 01/10/22 20:30 37.5 C 117 H 18 69/39 L 95 Laboratory Results Laboratory Results WBC 13.61 K/uL (4.8-10.8) H 01/10/22 20:47 RBC 3.35 M/uL (4.2-5.4) L 01/10/22 20:47 Hgb 10.6 g/dL (12.0-16.0) L 01/10/22 20:47 Hct 30.8 % (37-47) L 01/10/22 20: MCV 91.9 fL (80-100) 01/10/22 20:47 MCH 31.6 pg (25-34) 01/10/22 20: MCHC 34.4 g/dL (32-36) 01/10/22 20: RDW Std Deviation 47.6 fL (36.4-46.3) H 01/10/22 20: RDW Coeff of [place] 14.2 % (11.5-14.5) 01/10/22: Plt Count 128 K/uL (130-400) L 01/10/22: MPV 10.7 fL (7.4-10.4) H 01/10/22 20:47 Immature Gran % (Auto) 5.1 % 01/10/22:47 Neut % (Auto) 91.3 % 01/10/22: Lymph % (Auto) 2.6 % 01/10/22 20:47 [place] % (Auto) 1.0 % 01/10/22 20:47 Eos % (Auto) 0.0 % 01/10/22: Baso % (Auto) 0.0 % 01/10/22:47 Neut # (Auto) 12.43 K/uL (1.4-6.5) H 01/10/22 20:47 Lymph # (Auto) 0.36 K/uL (1.2-3.4) L 01/10/22 20:47 [place] # (Auto) 0.13 K/uL (0.11-0.59) 01/10/22 20:47 Eos # (Auto) 0.00 K/uL (0-0.5) 01/10/22 20: Baso # (Auto) 0.00 K/uL (0-0.2) 01/10/22 20: Immature Gran # (Auto) 0.69 K/uL (0.00-0.02) H 01/10/22 20:47 Toxic Vacuolation 2+ 01/10/22 20: Dohle Bodies 2+ 01/10/22 20:47 PT 10.6 Seconds (9.0-12.0) 01/10/22 20:47 INR 1.0 (0.9-1.1) 01/10/22 20:47 APTT 31.4 Seconds (21.0-31.0) H 01/10/22 20:47 PTT Ratio 1.1 01/10/22 20:47 Sodium 124 mmol/L (136-145) L 01/10/22 20:47 Potassium 4.2 mmol/L (3.5-5.1) 01/10/22 20:47 Chloride 87 mmol/L (98-107) L 01/10/22 20:47 Carbon Dioxide 20 mmol/L (21-32) L 01/10/22 20:47 Anion Gap 17 (3-11) H 01/10/22 20:47 BUN 65 mg/dl (6-23) H 01/10/22 20:47 Creatinine 5.27 mg/dl (0.6-1.2) H* 01/10/22 20:47 Est Cr Clr Drug Dosing 9.2 ml/min 01/10/22 20:47 Est GFR ( Amer) 9.2 ml/min 01/10/22 20:47 Est GFR (Non-Af Amer) 7.9 ml/min 01/10/22 20:47 BUN/Creatinine Ratio 12.3 (10-20) 01/10/22 20:47 Glucose 85 mg/dl (70-99(Fasting)) 01/10/22 20:47 Lactate 3.1 mmol/L (0.4-2.0) H* 01/10/22 22:34 Calcium 8.7 mg/dl (8.5-10.1) 01/10/22 20:47 Magnesium 1.8 mg/dl (1.7-2.4) 01/10/22 20:47 Total Bilirubin 1.1 mg/dl (0.2-1.0) H 01/10/22 20:47 AST 105 U/L (13-39) H 01/10/22 20:47 ALT 36 U/L (7-52) 01/10/22 20:47 Alkaline Phosphatase 156 U/L (34-104) H 01/10/22 20:47 Total Protein 6.3 gm/dl (6.0-8.3) 01/10/22 20:47 Albumin 3.2 gm/dl (3.4-5.0) L 01/10/22 20:47 Globulin 3.1 gm/dl (2.5-4.0) 01/10/22 20:47 Albumin/Globulin Ratio 1.0 (0.9-2) 01/10/22 20:47 Procalcitonin > 200.00 ng/ml (0-0.5) H 01/10/22 20:47 Urine Color Dark Yellow 01/10/22 23: Urine Appearance Turbid (Clear) A 01/10/22 23: Urine pH 5.0 (4.5-7.5) 01/10/22 23: Ur Specific [place] 1.025 (1.000-1.030) 01/10/22 23: Urine Protein 2+ (Negative) H 01/10/22 23:28 Urine Glucose (UA) Negative (Negative) 01/10/22 23: Urine Ketones Trace (Negative) H 01/10/22 23: Urine Blood 3+ (Negative) H 01/10/22 23: Urine Nitrite Negative (Negative) 01/10/22 23: Urine Bilirubin 1+ (Negative) H 01/10/22 23:28 Urine Urobilinogen Negative (Negative) 01/10/22 23:28 Ur Leukocyte Esterase 2+ (Negative) H 01/10/22 23:28 SARS-CoV-2, RNA, NAAT NEGATIVE (NEGATIVE) 01/10/22 20:[address] Abdomen and Pelvis without contrast: Fine detail is limited by low-dose protocol, respiratory motion artifact and mild generalized edema in the abdomen. There is mild left-sided hydronephrosis, there is a 9mm nonobstructive calyceal calculus in the mid left kidney as well as several smaller calyceal calculi and a 6mm layer of tiny calculi within the dependent portion of a 2.7cm left renal cyst. The left ureter is difficult to track through the pelvis. There are numerous calcified phleboliths throughout the pelvis. I suspect there is a 6mm calculus in the distal left ureter on series 2 image #65. THe right kidney is unremarkable. The urinary bladder is completely decompressed and not well visualized. The uterus and adnexa appear unremarkable. No free fluid is seen in the pelvis. Bowel loops are nondilated. There is suggestion of mild diffuse edema involving the small bowel and colon which is nonspecific but may indicate gastroenteritis or ileus. NO pneumoperitoneum, significant free fluid collection or abscess is identified. The liver is enlarged measuring 21.7cm craniocaudad. No focal liver lesion is identified. The gallbladder, pancreas, spleen and adrenal glands grossly unremarkable. Mild degenerative changes in the lumbosacral junction. NO acute fracture or subluxation is seen. ECG Additional Comments: ST. No acute ischemic changes. 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
[2022-01-11] MEDS: NOREPINEPHRINE/D5W 8 MG/508 ML BAG IV SCH ×2 (00:21→10:43)
[2022-01-11 00:38] LABS: Hematocrit (blood only) 24.8 % (37-47); Hemoglobin 8.8 g/dL (12.0-16.0); Mean Corpuscular Hgb Conc 35.5 g/dL (32-36); Mean Corpuscular Volume 90.2 fL (80-100); Platelet Count 105 K/uL (130-400); RDW Coefficient of Variation 14.4 % (11.5-14.5); RDW Standard Deviation 47.8 fL (36.4-46.3); Red Blood Count 2.75 M/uL (4.2-5.4); White Blood Count 25.34 K/uL (4.8-10.8)
[2022-01-11 00:42] LABS: Bacteria Urine Automated 2+ (Negative)
[2022-01-11 00:44] LABS: Calcium Oxalate Crystals Urine Present (None Prsent)
[2022-01-11 01:05] LABS: Anion Gap 10 (3-11); BUN Creatinine Ratio 13.3 (10-20); Blood Urea Nitrogen 61 mg/dl (6-23); Calcium 6.9 mg/dl (8.5-10.1); Carbon Dioxide 20 mmol/L (21-32); Chloride 95 mmol/L (98-107); Creatinine Clr Calc Pharmacy 10.6 ml/min; Est GFR (African American) 10.9 ml/min; Est GFR (Non-African American) 9.4 ml/min; Glucose 89 mg/dl (70-99(Fasting)); Sodium 125 mmol/L (136-145)
[2022-01-11] MEDS ORDERED: PIPERACILL/TAZOBAC CONSULT ACTIVE PRN (01:06)
[2022-01-11] MEDS ORDERED: ICU PROTOCOL FOR HYPERGLYCEMIA PRN (01:06)
[2022-01-11] MEDS ORDERED: ACETAMINOPHEN 500 MG TAB PO PRN (01:06)
[2022-01-11 01:26] LABS: Creatine Kinase 1663 U/L (26-192); Lipase 10 U/L (11-82)
[2022-01-11] MEDS: NORMOSOL-R 1,000 ML IV SCH ×3 (01:30→15:37)
--- NOTE | 2022-01-11 01:54 | Critical Care Consultation ---
Date of Consultation January 11, 2022 Assessment & Plan (1) Admitted to intensive care unit: Reason Critically Ill: 66-year-old female with severe sepsis with septic shock secondary to urinary tract source requiring close hemodynamic monitoring, vasopressor support, and likely surgical intervention in the setting of retained ureteral stone with associated sepsis. NEURO - * CAM ICU: NEGATIVE CARDIAC/VASCULAR - * Hypotension: * Secondary to sepsis syndrome. * Appropriately resuscitated with greater than 3 L normal saline in the emergency department. * Levophed started. * Agree with checking random cortisol. * Vasopressin if needed. * EKG: Sinus tachycardia at [address] or T wave changes noted. QTc 446 ms. * Monitor on telemetry. RESPIRATORY - * No history of pulmonary disease * Saturating well on room air GI/NUTRITION - * N.p.o. pending possible surgical intervention. RENAL/LYTES - * Acute renal failure: * Likely prerenal in the setting of profound hypotension as well as likely dehydration with ongoing vomiting and GI losses. * Patient making scants amount of urine. * Will place Trinidad catheter for close monitoring of urine output. * Continue with aggressive IV fluid resuscitation. * Hyponatremia: * Likely hypovolemic hyponatremia in the setting of GI losses. * High anion gap metabolic acidosis: * Multifactorial in the setting of acute renal failure with uremia and lactic acidosis. * Continue to trend with improvement in patient's status. * IVF: Normosol at 125 mL/h. - * Likely infected ureteral stone: * Patient to undergo cystoscopy emergently. * Agree w/ Zosyn/Dapto ENDO - * No h/o DM * BSGs per unit protocol. ISS --> gtt per unit policy. * Hypothyroidism: * Continue home Rx when able. HEME - * Anemia: * Appears to have a chronic anemia w/ dilutional component s/p 3 L Crystalloid. * Thrombocytopenia: * Likely degree of consumptive coagulopathy in the setting of severe sepsis. ID - * Severe Sepsis with Septic Shock: * Secondary to urinary source. * Patient to undergo stenting which hopefully provides degree of source control given degree of hydro on CT. * Covered appropriately w/ Zosyn/Dapto. * PCT >200. Will trend * Lactate trending down. * UA/Blood Cultures pending. LINES/IV ACCESS - * PIVs x3 * Trinidad * LEFT Radial Arterial line DVT PROPHYLAXIS - * Hold in the setting of anemia and thrombocytopenia. * SCDs I have personally spent 55 minutes of critical care time in the direct management of this patient. This is a life/limb threatening event. This includes time spent evaluating patient, direct bedside care, chart review, placing orders, interpretation of diagnostic studies, discussion with consultants, patient, and family members, as well as other required patient management activities. This time is exclusive of all separately billable procedures, and teaching time and separate from and in addition to any other critical care service time. Thank you for allowing us to participate in the care of this patient. Please refer to my attending physician's documentation for any further recommendations. (2) Severe sepsis: (3) Septic shock: (4) Acute renal failure (ARF): (5) Renal stone: (6) Urinary tract infection: History of Present Illness Attending Physician: Jazmín Guerrero DO History of Present Illness Patient is a 66-year-old female with significant past medical history of hypothyroidism and hyperparathyroidism who presented to the emergency department after feeling ill for 3 to 4 days. She has had waxing and waning fevers as well as nausea and vomiting. Patient developed diarrhea over the last 24 hours. She denies any complaints of pain. Upon presentation the emergency department, the patient was found to be profoundly hypotensive with systolic blood pressures in the 60s. Lactic acid elevated at greater than 4. Procalcitonin greater than 200. Acute renal failure with a creatinine of 5.27. Patient received 3 L crystalloid and was started on Levophed drip by hospitalist in the emergency department. Upon evaluation in the emergency department, the patient is awake, alert, and oriented. She offers no complaints of pain at this time. She reports that she does not feel any different than when she arrived. Overall, she reports feeling well. She offers no complaints at this time. Allergies Allergy/AdvReac Type Severity Reaction Status Date / Time No Known Drug Allergies Allergy nkda Verified 01/10/22 23:06 Home Medications Medication Instructions Recorded Confirmed Type ascorbic acid (vitamin C) 500 mg 500 mg PO DAILY cap 05/13/19 01/10/22 History capsule calcium carbonate 600 mg calcium 1,200 mg PO DAILY tab 05/13/19 01/10/22 History (1,500 mg) tablet cholecalciferol (vitamin D3) 50 2,000 units PO DAILY #90 tab 05/13/19 01/10/22 History mcg (2,000 unit) tablet cyanocobalamin (vitamin B-12) 2,000 mcg PO DAILY tab 05/13/19 01/10/22 History 2,000 mcg tablet paroxetine HCl 10 mg tablet 10 mg PO DAILY #90 tab 01/11/21 01/10/22 Rx kljhuxowrzuh-gltbevbv-hxdpoe tablet 1 tab PO DAILY 06/06/21 01/10/22 History levothyroxine 75 mcg tablet See Rx Instructions PO DAILY #15 07/10/21 01/10/22 Rx tab calcitriol 0.5 mcg capsule 1 mcg PO DAILY #60 cap 11/02/21 01/10/22 Rx levothyroxine 50 mcg tablet See Rx Instructions PO DAILY #15 11/12/21 01/10/22 Rx tab ondansetron HCl 4 mg tablet 4 mg PO TID PRN 3 Days #10 tab 01/08/22 01/10/22 Rx acetaminophen 500 mg tablet 1,000 mg PO Q6H PRN 01/10/22 01/10/22 History (Tylenol Extra Strength) Patient History Medical History History of hyperparathyroidism Hypothyroidism Surgical History History of gynecologic surgery History of parathyroid surgery S/P thyroid surgery THYROID LOBECTOMY RIGHT LOBE S/P tonsillectomy S/P tooth extraction Family History Grandmother (Paternal) Diabetes Uncle Diabetes Brother Stroke Denies family history of Ovarian cancer Prostate cancer Myocardial infarction Breast cancer Lung cancer Colorectal cancer Hypertension Social History Smoking Status: Never smoker Second Hand Exposure: No; Hx Alcohol Use: No Hx Substance Use: No Preferred Language: Bengali Communication Ability: Effective Visual Impairment: Limited Hearing Ability: Normal Tar Leveler Required: No Beliefs That Will Affect Care: None marital status: Single Current Living Situation: Parent Current Living Situation Comment: Father 13 days ago and she is staying with her mother current occupational status: employed How many Children do You have: 0 Feels Safe at Home: Yes Childhood Exposure to Second-Hand Smoke: Yes caffeine: Yes (drinks coffee daily ) Dental Care, Regularly: No Physical Activity Frequency: Daily Physical Activity Frequency Comment: walking Seatbelt Use: always Sunscreen Use: Yes Assistive Devices: None Review of Systems Review of Systems: A complete 10 point review of systems was reviewed with the patient with pertinent positives and negatives as per history of present illness. All else were negative. Physical Exam Physical Exam: VITAL SIGNS - Vital signs and nursing notes were reviewed. GENERAL - 66-year-old female appearing her stated age who is in no acute distress. Communicates well with provider and answers questions appropriately. HEAD - NC/AT. EYES - PERRL with EOMI bilaterally. Sclera anicteric. EARS - No deformities of external structures noted on gross examination bilaterally. NOSE - Midline and without cyanosis. No epistaxis or purulent drainage noted. MOUTH/OROPHARYNX - Without perioral cyanosis. Buccal mucosa pink and moist and without leukoplakia. NECK - Neck with FROM. Supple to palpation. No nuchal rigidity. LUNGS - Chest wall symmetric without accessory muscle use, intercostals retractions, or central cyanosis. Normal vesicular breath sounds CTA B/L. No wheezes, rales, or rhonchi appreciated. CARDIAC - RRR with S1/S2. No murmur, rubs, or gallops appreciated. ABDOMEN - Abdominal contour flat without pulsations or visible masses. BS normoactive all four quadrants. No tenderness to palpation appreciated throughout. No guarding. No Rebound Tenderness. No palpable masses, hepatosplenomegaly, or ascites noted. EXTREMITIES - No clubbing or peripheral cyanosis. No pretibial edema present. +3/5 radial and dorsalis pedis pulses palpated throughout. +5/5 strength noted in UE/LE bilaterally. NEUROLOGIC - Cranial nerves II through XII grossly intact. Sensory intact to light touch throughout. PSYCH - A&Ox3 and cooperates fully with examiner. Pt is very pleasant and interacts well with examiner. Results & Data Results & Data ([facility]) Vital Signs (Past 12 Hours) Vital Signs Temp Pulse Resp BP Pulse Ox 01/11/22 00:50 36.8 C 01/11/22 00:46 89 20 87/44 L 93 01/11/22 00:40 88 26 H 77/47 L 93 01/11/22 00:30 88 23 75/43 L 94 01/11/22 00:20 24 75/46 L 91 01/11/22 00:10 90 20 69/42 L 96 01/11/22 00:00 90 23 76/42 L 01/10/22 23:50 88 20 72/42 L 01/10/22 23:40 86 23 72/43 L 01/10/22 23:30 88 20 71/50 L 98 01/10/22 23:20 77 23 72/45 L 97 01/10/22 23:10 89 20 70/39 L 96 01/10/22 23:00 90 21 59/41 L 96 01/10/22 22:52 88 23 69/45 L 96 01/10/22 22:51 67 23 71/44 L 95 01/10/22 22:50 80 23 95 01/10/22 22:40 87 23 96 01/10/22 22:36 68 22 71/41 L 96 01/10/22 22:30 89 21 95 01/10/22 22:20 84 23 70/43 L 95 01/10/22 22:12 86 22 70/41 L 96 01/10/22 22:10 74 15 94 01/10/22 21:50 97 H 20 70/42 L 95 01/10/22 21:40 98 H 22 67/46 L 96 01/10/22 21:30 87 24 73/44 L 99 01/10/22 21:23 90 23 69/41 L 98 01/10/22 21:20 95 H 18 68/39 L 98 01/10/22 21:14 95 H 18 98 01/10/22 21:10 93 H 21 67/39 L 99 01/10/22 21:07 18 98 01/10/22 21:00 97 H 17 63/38 L 92 01/10/22 20:55 97 H 23 67/36 L 96 01/10/22 20:50 98 H 21 65/35 L 01/10/22 20:42 101 H 18 96 01/10/22 20:30 37.5 C 117 H 18 69/39 L 95 Coding Level of Care Code Critical Care 1st 30-74 mins Diagnoses Admitted to intensive care unit Z78.9 Severe sepsis A41.9; R65.20 Septic shock A41.9; R65.21 Acute renal failure (ARF) N17.9 Acute renal failure type: unspecified Renal stone N20.0 Urinary tract infection N39.0 Time Spent (min) 55 (1) Acute renal failure (ARF) Acute renal failure type: unspecified Qualified Code(s): N17.9 - Acute kidney failure, unspecified
[2022-01-11] MEDS ORDERED: STAT IV Infusion **Titration per Protocol STA ×2 (02:01→03:27)
[2022-01-11 02:07] LABS: Hematocrit (blood only) 24.2 % (37-47); Hemoglobin 8.6 g/dL (12.0-16.0)
--- NOTE | 2022-01-11 02:08 | Anesthesiology Consultation ---
Date of Service January 11, 2022 Assessment & Plan Chart Review Chart Review: Acceptable Risk for Surgery and Patient NOT seen in Pre Admission Testing Consults Requested none ASA [id number] Proposed Anesthesia Anesthesia Type: General Risk / Benefits Reviewed With: PT / POA / Parent / Guardian, Accepts Plan and Informed Consent Obtained History Surgery Operation Date: 01/11/22 02:00 Proposed Procedures p Cystoscopy - Juan Carlos Lopez MD s Ureteral Stent Insertion/Removal - Juan Carlos Lopez MD Height/Weight Height: 5 ft 4 in Weight: 61.8 kg Allergies Allergy/AdvReac Type Severity Reaction Status Date / Time No Known Drug Allergies Allergy nkda Verified 01/10/22 23:06 Medications Home Medications Medication Instructions Recorded Confirmed Last Taken ascorbic acid (vitamin C) 500 mg 500 mg PO DAILY cap 05/13/19 01/10/22 Unknown capsule calcium carbonate 600 mg calcium 1,200 mg PO DAILY tab 05/13/19 01/10/22 Unknown (1,500 mg) tablet cholecalciferol (vitamin D3) 50 2,000 units PO DAILY #90 tab 05/13/19 01/10/22 Unknown mcg (2,000 unit) tablet cyanocobalamin (vitamin B-12) 2,000 mcg PO DAILY tab 05/13/19 01/10/22 Unknown 2,000 mcg tablet paroxetine HCl 10 mg tablet 10 mg PO DAILY #90 tab 01/11/21 01/10/22 Unknown saiiujtfpzbw-oqqcwfau-nbrjbb tablet 1 tab PO DAILY 06/06/21 01/10/22 Unknown levothyroxine 75 mcg tablet See Rx Instructions PO DAILY #15 07/10/21 01/10/22 Unknown tab calcitriol 0.5 mcg capsule 1 mcg PO DAILY #60 cap 11/02/21 01/10/22 Unknown levothyroxine 50 mcg tablet See Rx Instructions PO DAILY #15 11/12/21 01/10/22 Unknown tab ondansetron HCl 4 mg tablet 4 mg PO TID PRN 3 Days #10 tab 01/08/22 01/10/22 01/10/22 05:30 acetaminophen 500 mg tablet 1,000 mg PO Q6H PRN 01/10/22 01/10/22 01/10/22 13:30 (Tylenol Extra Strength) Active Medications Generic Name Dose Route Start Last Admin Trade Name Freq PRN Reason Stop Dose Admin Norepinephrine Bitartrate 8 mg in 508 mls @ 10.592 mls/hr 01/10/22 23:45 01/11/22 00:21 Levophed/D5w IV 02/09/22 23:44 0.05 mcg/kg/min .Q24H STACIA 10.6 mls/hr Administration Protocol 0.05 MCG/KG/MIN Past Medical History Medical History History of hyperparathyroidism Hypothyroidism Exercise / Class Metabolic Activity II 4-5 Yardwork/Stairs/Walk up hill Past Family History Family History Grandmother (Paternal) Diabetes Uncle Diabetes Brother Stroke Denies family history of Ovarian cancer Prostate cancer Myocardial infarction Breast cancer Lung cancer Colorectal cancer Hypertension Past Surgical History Surgical History History of gynecologic surgery History of parathyroid surgery S/P thyroid surgery THYROID LOBECTOMY RIGHT LOBE S/P tonsillectomy S/P tooth extraction Past Anesthesia History No Hx of Anesthesia Complications and No Family Hx of Anesthesia Complications History of PONV No Hx of PONV and No Hx of Motion Sickness Social History Smoking Status: Never smoker Do You Dip or Chew Tobacco: No Hx Alcohol Use: No Alcohol type: hard liquor Alcohol Intake Frequency Comment: Occasionally at Holidays Hx Substance Use: No Physical Exam Vital Signs Last Vital Signs Temp 37.4 C 01/11/22 01:29 Pulse 87 01/11/22 01:29 Resp 26 H 01/11/22 01:29 BP 72/47 L 01/11/22 01:29 Pulse Ox 94 01/11/22 01:29 ENMT Mouth: no dentition abnormality Thyromental Distance: > or= 3.5 Finger Breadths Mallampati Class: II Neck normal visual inspection Respiratory normal respiratory effort Auscultation: lungs clear to auscultation bilaterally Cardiovascular Rate/Rhythm: regular rate and regular rhythm Musculoskeletal Left radial arterial line in place. Psychiatric Orientation: alert Testing Laboratory Results PT 10.6 Seconds (9.0-12.0) 01/10/22 20:47 INR 1.0 (0.9-1.1) 01/10/22 20:47 APTT 31.4 Seconds (21.0-31.0) H 01/10/22 20:47 Urine Color Dark Yellow 01/10/22 23: Urine Appearance Turbid (Clear) A 01/10/22 23: Urine pH 5.0 (4.5-7.5) 01/10/22 23: Ur Specific [place] 1.025 (1.000-1.030) 01/10/22 23: Urine Protein 2+ (Negative) H 01/10/22 23: Urine Glucose (UA) Negative (Negative) 01/10/22: Urine Ketones Trace (Negative) H 01/10/22 23: Urine Nitrite Negative (Negative) 01/10/22 23: Ur Leukocyte Esterase 2+ (Negative) H 01/10/22 23: Urine WBC (Auto) >30 /hpf (0-5) H 01/10/22 23: Urine RBC (Auto) 5-10 /hpf (0-4) H 01/10/22 23: U Hyaline Cast (Auto) 1-5 /lpf (0-5) 01/10/22 23: U Epithel Cells (Auto) >30 /lpf (0-5) H 01/10/22 23:28 Urine Bacteria (Auto) 2+ (Negative) H 01/10/22 23:28
[2022-01-11] MEDS: VASOPRESSIN 20 UNITS in 0.9 % SODIUM CHLORIDE 100 ML IV SCH ×3 (02:10→20:51)
[2022-01-11] MEDS ORDERED: LIDOCAINE 2% 2 ML VIAL/AMP(20MG/ML) INFIL ONE (02:26)
[2022-01-11] MEDS ORDERED: PROPOFOL IV EMULSION 10 MG/ML 20 ML VIAL IV ONE (02:26)
[2022-01-11] MEDS ORDERED: SUCCINYLCHOLINE CHLORIDE 20 MG/ML 10 ML VIAL IV ONE (02:26)
[2022-01-11] MEDS ORDERED: fentaNYL citrate 100 MCG/2 ML VIAL ONE (02:26)
--- NOTE | 2022-01-11 02:28 | Post Operative Brief Note ---
PG Immediate Post Op with CF Date of Surgery January 11, 2022 Pre & Post Diagnosis Left hydronephrosis, left ureteral calculus, sepsis Operation Date: 01/11/22 02:00 <No data on this case meets the specified criteria> Left hydronephrosis, left ureteral calculus, sepsis I identified the patient and participated in the time-out.: Yes Procedure Cystoscopy, left retrograde pyelogram with radiographic interpretation, left ureteroscopy, left ureteral stent placement, Trinidad catheter placement Operation Date: 01/11/22 02:00 <No data on this case meets the specified criteria> Surgeon Juan Carlos Lopez MD Recreation Adviser None Estimated Blood Loss 0 Findings See Below Left retrograde pyelogram showed moderate left hydro Stent in appropriate position Significant purulent drainage from left UO after wire and stent placed False passage in distal ureter Drains Trinidad Catheter and Other (6 Lithuanian by 26 cm left ureteral stent) Anesthesia Type General Complications none
--- NOTE | 2022-01-11 02:30 | Operative Report ---
PG Post Operative Report Pre & Post Diagnosis Operation Date: 01/11/22 02:00 <No data on this case meets the specified criteria> I identified the patient and participated in the time-out.: Yes Procedure Operation Date: 01/11/22 02:00 <No data on this case meets the specified criteria> Cystoscopy, left retrograde pyelogram with radiographic interpretation, left ureteroscopy, left ureteral stent placement, Trinidad catheter placement Surgeon Juan Carlos Lopez MD Rubber Grinder None Estimated Blood Loss 0 Findings See Below Specimens None Drains 6 Thai by 26 cm left ureteral stent 18 Thai Trinidad catheter with 10 cc in balloon Anesthesia Type General Complications none Indications 66-year-old female who presented hypotensive, had a leukocytosis of 25, had a significant MANDIE with creatinine over 5, and urinalysis that was concerning for infection, and a CT scan that showed left hydronephrosis and a suspected left distal ureteral calculus. As the patient was considerably thin, it was hard to track her left ureter down into the pelvis. Taken emergently for left ureteral stent placement. Description of Procedure After informed consent was obtained, the patient was transported operative suite. General anesthesia was induced. The patient was placed in dorsal lithotomy position prepped and draped in a sterile fashion. They received preoperative daptomycin and Zosyn for antibiotic prophylaxis. An appropriate surgical timeout was performed. A 22 Thai rigid scope was inserted per urethra into the bladder. Mclaughlin cystoscopy revealed no stones or lesions. I turned my attention the left ureteral orifice and intubated this with a 5 Thai open-ended catheter. I immediately met resistance in the distal left ureter. I then attempted to advance a sensor wire and a zip wire past the distal ureter but was unable to do so. I then attempted to use a torque catheter to advance a zip wire past the distal ureter but was unsuccessful. As we do not have interventional radiology here and she would require transfer to another hospital for IR nephrostomy tube placement, I opted to attempt to visualize the obstruction in the distal ureter. I advanced a semirigid ureteroscope into the left distal ureter. I noted a false passage at the 9 o'clock position and the true lumen at the 3 o'clock position. Under visualization, I then was able to advance a sensor wire into the true lumen and confirmed position in the upper pole of the kidney under fluoroscopic guidance. I removed the semirigid ureteroscope. I advanced a 5 Thai open-ended catheter over the wire and confirmed position in the left kidney. I removed the sensor wire and shot a left retrograde pyelogram which showed a moderately dilated left system. I replaced the sensor wire in the upper pole of the kidney and removed the 5 Thai open-ended catheter. I backloaded the cystoscope over the wire and then deployed a 6 Thai by 26 cm left ureteral stent with a good proximal coil in the kidney confirmed fluoroscopically and a good distal coil in the bladder confirmed under direct visualization. There was significant purulent drainage once the wire was placed and once the stent was placed. The bladder was left full and the scope was removed. An 18 Thai Trinidad catheter was inserted with return of cloudy urine. Balloon was inflated with 10 cc of sterile water. This concluded the end of the case. All counts were correct at the end of the case. I was present, scrubbed, and actively participated for the entirety of the procedure. Patient to be left intubated and transported back to ICU. I attest to the content of the Intraoperative Record and any orders documented therein. Any exceptions are noted below.
[2022-01-11 02:31] LABS: BUN Creatinine Ratio 13.6 (10-20); Creatinine Clr Calc Pharmacy 10.6 ml/min; Est GFR (African American) 10.9 ml/min; Est GFR (Non-African American) 9.4 ml/min; Magnesium 1.6 mg/dl (1.7-2.4); Phosphorus 2.7 mg/dl (2.5-4.9); Potassium 4.3 mmol/L (3.5-5.1)
[2022-01-11] MEDS ORDERED: DIATRIZOATE MEGLUMINE 30% 100ML VIAL INSTIL ONE (02:56)
[2022-01-11] MEDS ORDERED: ROCURONIUM BROMIDE 10 MG/ML 5 ML VIAL IV ONE (02:59)
[2022-01-11] MEDS ORDERED: PHENYLEPHRINE 100MCG/ML 5ML SYR ONE (02:59)
[2022-01-11] MEDS ORDERED: MIDAZOLAM HCL 1 MG/ML 2ML VIAL ONE ×2 (03:00)
--- NOTE | 2022-01-11 03:00 | Procedure Note ---
Procedure Note Date of Service January 11, 2022 Note Procedure: Arterial Line Placement Attending: Dr. Tracey APC: Sahil Segal PA-C Indication: Hemodynamic monitoring Anesthesia: Lidocaine 1% Emergent Consent implied in the setting of clinical deterioration and need for close hemodynamic monitoring, ABG monitoring, frequent lab draws, etc. A time-out was completed verifying correct patient, procedure, site, positioning, and implant(s) or special equipment if applicable. Allens test was performed to ensure adequate perfusion. Patients LEFT wrist was prepped and draped in the usual sterile fashion. Ultrasound guidance was used to aid needle placement. A 20g Arrow arterial line was introduced into the LEFT Radial artery. Catheter was threaded, and the needle was removed with appropriate blood return. Good waveform was observed. The patient tolerated the procedure well. Confirm ation of placement with ultrasound. Blood Loss: Minimal Complications: None Procedural Ultrasound Guidance: Procedure Date: 01/11/2022 Indication: Hemodynamic Monitoring, Frequent ABGs/Lab draws. Attending: Dr. Tracey APC: Sahil Segal PA-C Artery Identified: YES Line confirmed in Artery with ultrasound: YES Complications: NONE Patient tolerated procedure: WELL Coding CPT Codes Tubes, Drains, and Vasc Access - Tubes, Drains, and Vasc Access: [id number] Place Catheter In Artery ([id number]) [facility] Procedure Codes (Charges) Tubes, Drains, and Vasc Access Procedure 1: Tubes, Drains, and Vasc Access: [id number] Place Catheter In Artery
[2022-01-11] MEDS: propofoL 1,000 MG/100 ML VIAL IV SCH ×3 (03:30→19:37)
[2022-01-11] MEDS: fentaNYL citrate 2,500 MCG/250 ML BAG IV SCH (03:40)
[2022-01-11] MEDS: PROPOFOL IV EMULSION 10 MG/ML 100 ML VIAL IV ONE ×2 (03:52→04:59)
--- NOTE | 2022-01-11 03:58 | Anesthesiology Progress Note ---
Date of Service January 11, 2022 Anesthesia Post Procedure Vital Signs Vital Signs: Temp Pulse Pulse Resp BP BP Pulse Ox 01/11/22 01:29 37.4 C 87 26 H 72/47 L 94 01/11/22 00:50 36.8 C 01/11/22 00:46 89 20 87/44 L 93 01/11/22 00:40 88 26 H 77/47 L 93 01/11/22 00:30 88 23 75/43 L 94 01/11/22 00:20 24 75/46 L 91 01/11/22 00:10 90 20 69/42 L 96 01/11/22 00:00 90 23 76/42 L 01/10/22 23:50 88 20 72/42 L 01/10/22 23:40 86 23 72/43 L 01/10/22 23:30 88 20 71/50 L 98 01/10/22 23:20 77 23 72/45 L 97 01/10/22 23:10 89 20 70/39 L 96 01/10/22 23:00 90 21 59/41 L 96 01/10/22 22:52 88 23 69/45 L 96 01/10/22 22:51 67 23 71/44 L 95 01/10/22 22:50 80 23 95 01/10/22 22:40 87 23 96 01/10/22 22:36 68 22 71/41 L 96 01/10/22 22:30 89 21 95 01/10/22 22:20 84 23 70/43 L 95 01/10/22 22:12 86 22 70/41 L 96 01/10/22 22:10 74 15 94 01/10/22 21:50 97 H 20 70/42 L 95 01/10/22 21:40 98 H 22 67/46 L 96 01/10/22 21:30 87 24 73/44 L 99 01/10/22 21:23 90 23 69/41 L 98 01/10/22 21:20 95 H 18 68/39 L 98 01/10/22 21:14 95 H 18 98 01/10/22 21:10 93 H 21 67/39 L 99 01/10/22 21:07 18 98 01/10/22 21:00 97 H 17 63/38 L 92 01/10/22 20:55 97 H 23 67/36 L 96 01/10/22 20:50 98 H 21 65/35 L 01/10/22 20:42 101 H 18 96 01/10/22 20:30 37.5 C 117 H 18 69/39 L 95 Transfer of Care Handoff Completed per policy Notes Mental Status: see notes below Nausea / Vomiting: adequately controlled Pain: adequately controlled Airway Patency, RR, SpO2: see Notes below BP & HR: stable & adequate and see Notes below Hydration State: stable & adequate Anesthetic Complications: no major complications apparent Notes: patient's bp rapidly improved after stent placement. she was able to wean nearly off all pressors before leaving the operating room. as discussed preop, she was left intubated, as there is certainly concerned for acute worsening of her symptoms after stent placement. i discussed the intraoperative course with the ICU CARLOS who is assuming critical care management of the patient.
[2022-01-11] MEDS ORDERED: PIPERACILLIN/TAZOBACTAM 3.375 GM in DEXTROSE 5% 100 ML IV SCH (04:00)
[2022-01-11 04:45] LABS: iSTAT Art Bld Gas pCO2 Correct 42 mmHg (35-46); iSTAT Art Bld Gas pH Corrected 7.263 (7.35-7.45); iSTAT Arterial Blood Gas HCO3 19 meg/L (19-24); iSTAT Arterial Blood Gas pCO2 42 mmHg (35-46); iSTAT Arterial Blood Gas pH 7.26 (7.35-7.45); iSTAT Arterial Blood Gas pO2 78 mmHg (80-95); iSTAT Arterial Blood Gas pO2 C 78; iSTAT Carbon Dioxide 20 mmol/L (24-31); iSTAT FiO2 40 %; iSTAT Hematocrit 27 % (37-47); iSTAT Hemoglobin 9.2 g/dl (12.0-16.0); iSTAT Potassium 4.1 mmol/L (3.3-5.0); iSTAT Site Art Line; iSTAT Sodium 127 mmol/L (135-144)
[2022-01-11 05:31] LABS: Creatinine Urine Random 136.3 mg/dl
[2022-01-11 05:53] LABS: Magnesium 1.7 mg/dl (1.7-2.4); Phosphorus 4.3 mg/dl (2.5-4.9)
[2022-01-11] MEDS ORDERED: LACTATED RINGER'S 500 ML IV ONE (06:00)
[2022-01-11] MEDS ORDERED: diphenhydrAMINE 50 MG/ML VIAL IV ONE (06:00)
[2022-01-11] MEDS ORDERED: diphenhydrAMINE 50 MG/ML VIAL ONE (06:01)
[2022-01-11] MEDS: LEVOTHYROXINE SODIUM 75 MCG TABLET PO SCH (06:41)
--- NOTE | 2022-01-11 07:39 | CT Scan Report ---
CT SCAN OF THE ABDOMEN AND PELVIS WITHOUT IV CONTRAST CLINICAL HISTORY: Nausea and vomiting. Fever. Elevated creatinine. COMPARISON STUDY: No priors. TECHNIQUE: CT scan of the abdomen and pelvis is performed from the lung bases to the proximal femora. Images are reviewed in the axial, sagittal, and coronal planes. IV contrast was not administered for this examination. A dose lowering technique was utilized adhering to the principles of ALARA. Examin ation is significantly compromised by motion artifact. CT DOSE: 270.90 mGy.cm FINDINGS: Lung bases: The heart is mildly enlarged and without pericardial effusion. There is diffusely diminis hed attenuation of the cardiac blood pool as compared to the myocardium suggesting anemia. There are trace pleural effusions with dependent consolidation. Liver: The unenhanced liver is enlarged, measuring 21.5 cm in length. Hepatic attenuation is heteroge neous. There is no intrahepatic biliary ductal dilatation. Gallbladder: Unremarkable. Spleen: Normal in size and attenuation. Pancreas: The unenhanced pancreas is grossly unremarkable but not well evaluated. Adrenal glands: Unremarkable. Kidneys: The unenhanced kidneys are normal in size. There are numerous (at least 6) calculi in the di stal left ureter below the pelvic inlet. Is difficult to measure due to motion artifact These contrib [place] to moderate to severe left hydroureteronephrosis. There is associated left-sided perinephric stra nding and fluid. There are least 5 additional nonobstructing left renal calculi which measure up to a t least 1.0 cm. These are difficult to measure due to motion artifact. No right renal calculi are stephy raine identified and there is no right-sided hydronephrosis. There a calcification containing cyst or calyceal diverticulum in the left upper pole measures up to 3.0 cm. Abdominal vasculature: The abdominal aorta is normal in course and caliber. Bowel: There is no bowel obstruction. A structure that may represent a normal appendix is seen on radha ge #[id number]. This is not definitive. Question mild diffuse wall thickening throughout the small bowel and colon. There is no pneumatosis intestinalis or portal venous gas. Peritoneum: There is mild edema throughout the mesentery. No intraperitoneal free air or abdominal as cites is seen. Lymphadenopathy: None. Pelvic viscera: The bladder is decompressed and appears circumferentially thick walled. There is beba cystic infiltration. The uterus and adnexa are normal as visualized. Skeletal structures: The skeletal structures are osteopenic. No lytic or blastic lesions are seen. IMPRESSION: 1. Severely motion compromised examination. 2. There are numerous (at least 6) obstructing calculi in the distal left ureter below the pelvic inl et. These are difficult to measure due to motion artifact and cause moderate to severe left-sided hyd roureteronephrosis. 3. There are additional nonobstructing left renal calculi. 4. No right renal calculi identified. 5. Findings suggest cystitis. Correlate with clinical findings and urinalysis. 6. Marked hepatomegaly. 7. Cardiomegaly with trace pleural effusions and dependent airspace opacities. This likely represents atelectasis and clinical correlation will be required. 8. Question bowel wall thickening with nonspecific edema throughout the mesentery. This could be rela gerald to volume status or could represent a nonspecific enterocolitis. Clinical correlation will be req uired. 9. There is no bowel obstruction. 10. Additional findings as above. ACT 112: Negative or not required by law. Electronically signed by: Kb Vasquez M.D. 01/11/2022 7:37 AM
--- NOTE | 2022-01-11 07:50 | XRay Report ---
XR chest 1V portable HISTORY: SEPSIS COMPARISON: None. FINDINGS: Left midlung zone linear densities favor scarring or subsegmental atelectasis. Otherwise, n o focal lung consolidations to suggest pneumonia. No evidence for pulmonary edema. The heart is mildl y enlarged. No pleural effusions. No pneumothorax. IMPRESSION: Mild cardiomegaly. Otherwise, no acute process within the chest. ACT 112: Negative or not required by law. Electronically signed by: Roberto Poon M.D. 01/11/2022 7:48 AM
--- NOTE | 2022-01-11 07:56 | Procedure Note ---
Procedure Note Date of Service January 11, 2022 Note Procedure date: Noted above Procedure: Central venous access Pre-procedure indication: Need for vasoactive medication administration Post-procedure Diagnosis: same as above Prior to Procedure: Informed Consent: Emergent consent implied Attending Staff: Jennifer Tracey DO Resident/APC: Not applicable Skin Prep: Chlorhexidine Anesthesia: 4 mL 1% lidocaine without epinephrine The identity of the patient was confirmed and a bedside time out was performed. Description of Procedure: After sterile prep and sterile drape utilizing standard sterile technique the superficial skin of the left subclavian area was anesthetized. The target vessel was identified and entered with an 18-gauge needle. Dark venous blood return was noted. A guidewire was inserted through the needle and into the vessel. The needle was withdrawn and a skin pedro was made. A tissue dilator was advanced via Seldinger technique and removed. A triple lumen catheter was inserted via Seldinger technique and the guidewire removed. All ports shmuel and flushed easily. A Biopatch was placed, and the catheter was secured via silk suture and commercial securement device. A sterile dressing was then applied. Complications: None Estimated blood loss: Trace Patient tolerated the procedure well. Coding CPT Codes Tubes, Drains, and Vasc Access - Tubes, Drains, and Vasc Access: [id number] Insertion Of Non-tunneled Catheter Age 6 Yrs> ([id number]) [facility] [place] Procedure Codes (Charges) Tubes, Drains, and Vasc Access Procedure 1: Tubes, Drains, and Vasc Access: [id number] Insertion Of Non-tunneled Catheter Age 6 Yrs>
--- NOTE | 2022-01-11 07:59 | Ultrasound Report ---
ABDOMINAL ULTRASOUND, RIGHT UPPER QUADRANT HISTORY: sepsis, elevated alkaline phosphatase.. COMPARISON: Abdomen and pelvis CT 522. FINDINGS: Pancreas: The pancreas demonstrates a normal echotexture. Liver: No hepatic masses. 21.6 cm in length. Trace ascites is noted. Gallbladder: Diffuse edematous gallbladder wall measuring up to 5.5 mm in thickness. The gallbladder is filled with sludge. No gallstones identified. A sonographic Lockhart's sign was unable to be assesse d due to the patient's mental state. CBD: 3 mm. Right kidney: No hydronephrosis. Trace perinephric fluid. Miscellaneous: Trace right pleural effusion. IMPRESSION: 1. Hepatomegaly. 2. The gallbladder wall is diffusely edematous and the gallbladder is filled with sludge. No gallston es identified. This may be due to the patient's diffuse edematous state. 3. Trace right pleural effusion and trace ascites. ACT 112: Negative or not required by law. Electronically signed by: Roberto Poon M.D. 01/11/2022 7:57 AM
--- NOTE | 2022-01-11 08:03 | XRay Report ---
SINGLE VIEW CHEST CLINICAL HISTORY: Respiratory failure. Intubation. FINDINGS: An AP, portable, upright chest radiograph is compared to study dated 01/10/2022. An endotrach eal tube has been placed. The tip projects 4.4 cm above the montserrat. The heart is enlarged. There is m ild pulmonary vascular congestion. Dependent airspace opacities are seen at both lung bases, left gre ater than right. No large pleural effusion or pneumothorax is seen. The skeletal structures are osteo penic. The bony thorax is grossly intact. IMPRESSION: 1. An endotracheal tube has been placed as above. 2. Cardiomegaly with pulmonary vascular congestion. 3. Dependent airspace opacities could represent scarring/atelectasis versus an infectious/inflammator y pneumonitis. Clinical correlation will be required. ACT 112: Negative or not required by law. Electronically signed by: Kb Vasquez M.D. 01/11/2022 8:01 AM
--- NOTE | 2022-01-11 08:06 | XRay Report ---
XR chest 1V portable HISTORY: 66 years-old Female Line Placement acute respiratory failure COMPARISON: Chest radiograph 01/11/2022 at 3:37 AM TECHNIQUE: Portable AP view of the chest FINDINGS: Endotracheal tube overlies the midline, 3.2 cm superior to the montserrat. Left subclavian central venous catheter distal tip is noted within the region of the mid SVC. The cardiac silhouette is enlarged. T here is no pneumothorax or large pleural effusion. Probable trace pleural effusions. Interstitial coa rsening with persistent left basilar opacities. No pneumothorax. IMPRESSION: 1. Satisfactory positioning of the endotracheal tube and left subclavian central venous catheter. 2. Persistent left basilar consolidation. 3. No pneumothorax. ACT 112: Negative or not required by law. The above report was generated using voice recognition software. It may contain grammatical, syntax o r spelling errors. Electronically signed by: Abhishek Harry M.D. 01/11/2022 8:05 AM
[2022-01-11 08:15] LABS: Hemoglobin 9.1 g/dL (12.0-16.0)
--- NOTE | 2022-01-11 08:26 | Fluoroscopy Report ---
INTRAOPERATIVE RADIOGRAPHS CLINICAL HISTORY: Left ureteral stent placement. Fluoroscopy time: 23 seconds. FINDINGS: 4 spot fluoroscopic views of the left abdomen are correlated with abdominal CT performed 01/10/2022. The initial image shows a catheter in the left renal collecting system. Injected contrast tyrone ws evidence of hydronephrosis. Filling defects likely represent renal calculi. The final image shows the proximal end of a left ureteral stent in appropriate position. IMPRESSION: Intraoperative images from a left ureteral stent placement procedure as above. Electronically signed by: Kb Vasquez M.D. 01/11/2022 8:25 AM
[2022-01-11 08:34] LABS: BUN Creatinine Ratio 14.4 (10-20); Calcium 6.8 mg/dl (8.5-10.1); Creatinine Clr Calc Pharmacy 10.9 ml/min; Est GFR (African American) 11.9 ml/min; Est GFR (Non-African American) 10.3 ml/min; Magnesium 1.8 mg/dl (1.7-2.4); Phosphorus 3.9 mg/dl (2.5-4.9); Potassium 4.4 mmol/L (3.5-5.1)
[2022-01-11] MEDS: PARoxetine HCL 10 MG TAB PO SCH (08:52)
[2022-01-11] MEDS: CALCITRIOL 0.25 MCG CAPSULE PO SCH (08:52)
--- NOTE | 2022-01-11 09:02 | Critical Care Progress Note ---
Date of Service January 11, 2022 Assessment & Plan (1) Admitted to intensive care unit: Plan: Reason Critically Ill: 66-year-old female with severe sepsis with septic shock secondary to urinary tract source requiring close hemodynamic monitoring, vasopressor support, s/p L ureteral stent placement NEURO - * CAM ICU: NEGATIVE * Sedation- Propofol at 10 mcg/kg/min, fentanyl 50 mcg/hr * Analgesia- None at present Currently sedated and non-responsive, wean as able CARDIAC/VASCULAR - * Hypotension: * Secondary to sepsis syndrome. * Appropriately resuscitated with greater than 3 L normal saline in the emergency department * Currently on levophed 0.25 mcg/kg/min, vasopressin 0.04 units/min * BP improving on pressor support- currently MAP > 65 * Wean pressors as tolerated * EKG: Sinus tachycardia at [address] or T wave changes noted. QTc 446 ms. * Telemetry monitoring RESPIRATORY - Acute respiratory failure secondary to septic shock * Ventilator settings- RR 20, FiO2 30, TV 315, PEEP 5 * Extubate once BPs stable + sedation weaned GI/NUTRITION - * NPO while sedated * Normosol IVF rate lowered 125 to 100 ml/hr * Pantoprazole 40 mg IV daily initiated RENAL/LYTES - * Acute renal failure: * Likely prerenal in the setting of profound hypotension as well as likely dehydration with ongoing vomiting and GI losses. * Trinidad placed, strict I's and O's * Cr 5.3 to 4.6 with fluid repletion * Hypomagnesemia * Mg 1.6, repleted and uptrending * Hyponatremia: * Na 125, likely hypovolemic hyponatremia in the setting of GI losses. * High anion gap metabolic acidosis: * Multifactorial in the setting of acute renal failure with uremia and lactic acidosis. * Continue to trend with improvement in patient's status * Repeat BMP at noon - * Infected ureteral stone * S/p OR- L ureteral stent placed 01/11 * Continue zosyn, stopped daptomycin today * Urine cultures pending ENDO - * No h/o DM * BSGs per unit protocol. ISS --> gtt per unit policy. * Hypothyroidism: * Continue home Rx when able. HEME - * Anemia: * Hgb 10.6 to 9, appears to have a chronic anemia w/ dilutional component s/p 3 L Crystalloid. * Thrombocytopenia: * Plts 128 to 105, likely degree of consumptive coagulopathy in the setting of severe sepsis. ID - * Severe Sepsis with Septic Shock: * UA grossly infected, BCx with gram negative bacilli, UCx pending * Procalcitonin 200+, trend * Continue zosyn, daptomycin discontinued * Lactate 3.1 to 1.7 LINES/IV ACCESS - * PIVs x3 * Trinidad * LEFT Radial Arterial line * LEFT central line DVT PROPHYLAXIS - * Heparin 5000u BID (2) Severe sepsis: (3) Septic shock: (4) Acute renal failure (ARF): (5) Renal stone: (6) Urinary tract infection: Admission and Anticipated Discharge Date Admission Date: January 11, 2022 Supervising Physician Co-Signing Physician Notes Dr. Prabhakar was resident physician during care of patient. I separately evaluated patient for hayes portions of the history and the exam. I was present during the critical portion of medical decision making, and I discussed the case with the resident. I generally agree with the findings and plan. Continue with current treatment plan, repeat blood cultures in a.m. both are already positive for gram-negative rods. Can discontinue vancomycin. Patient remains critically ill Subjective Received significant fluid repletion and vasoactive support since admission, central line placed at bedside this AM. Sedated on evaluation, did not respond to commands. Review of Systems Review of Systems: Unable to assess due to sedation Physical Exam Physical Exam: GENERAL - intubated, sedated, does not appear to be in distress, left central line in place HEAD - NC/AT. EYES - PERRL EARS - No deformities of external structures noted on gross examination bilaterally. NOSE - Midline and without cyanosis. No epistaxis or purulent drainage noted. MOUTH/OROPHARYNX - Unable to fully assess due to intubation, lips appeared moist NECK - Neck supple to palpation LUNGS - CTAB, Chest wall rise and fall symmetric without accessory muscle use or intercostal retractions, no wheezes or crackles identified CARDIAC - RRR with S1/S2. No murmur, rubs, or gallops appreciated. ABDOMEN - Soft, nontender, nondistended, normoactive bowel sounds EXTREMITIES - No clubbing or peripheral cyanosis. No peripheral edema. Distal pulses b/l LE intact. Normal tone and bulk of b/l UE and LE NEUROLOGIC - Sedated PSYCH - Sedated Results & Data Results & Data ([facility]) Vital Signs (Past 12 Hours) Vital Signs Temp Pulse Pulse Resp BP BP BP 01/11/22 08:45 37.9 C H 94 H 19 01/11/22 08:30 89/58 L 01/11/22 08:15 110 H 20 01/11/22 08:00 97 H 23 88/59 L 01/11/22 07:45 97 H 20 01/11/22 07:30 100 H 19 80/54 L 01/11/22 07:27 100 H 22 01/11/22 07:15 100 H 20 01/11/22 07:00 101 H 20 87/55 L 01/11/22 06:00 95 H 22 80/45 L 01/11/22 05:54 37.3 C 96 H 22 70/43 L 01/11/22 05:47 100 H 18 86/48 L 01/11/22 05:30 103 H 18 85/54 L 01/11/22 05:00 107 H 14 109/50 L 01/11/22 04:30 108 H 18 139/69 01/11/22 04:00 37.1 C 117 H 108 H 17 144/79 H 139/69 01/11/22 03:50 117 H 19 136/68 01/11/22 03:40 130 H 26 H 156/81 H 01/11/22 03:39 132 H 20 164/82 H 01/11/22 03:36 130 H 24 01/11/22 03:30 133 H 15 155/83 H 01/11/22 03:25 131 H 16 162/74 H 01/11/22 03:24 128 H 16 01/11/22 02:10 37.6 C H 83 25 H 82/51 L 01/11/22 02:00 37.6 C H 84 25 H 77/48 L 01/11/22 01:50 37.5 C 87 29 H 73/50 L 01/11/22 01:47 37.5 C 85 26 H 75/48 L 01/11/22 01:40 37.5 C 86 26 H 75/47 L 01/11/22 01:30 37.5 C 86 24 77/45 L 01/11/22 01:29 37.4 C 87 26 H 72/47 L 01/11/22 01:27 37.4 C 85 26 H 74/47 L 01/11/22 01:20 37.1 C 88 27 H 72/47 L 01/11/22 01:15 36.5 C 87 27 H 80/47 L 01/11/22 01:12 92 H 27 H 79/48 L 01/11/22 01:11 90 32 H 77/44 L 01/11/22 01:07 94 H 25 H 74/40 L 01/11/22 01:02 91 H 27 H 76/43 L 01/11/22 01:01 89 26 H 01/11/22 00:50 36.8 C 01/11/22 00:46 89 20 87/44 L 01/11/22 00:40 88 26 H 77/47 L 01/11/22 00:30 88 23 75/43 L 01/11/22 00:20 24 75/46 L 01/11/22 00:10 90 20 69/42 L 01/11/22 00:00 90 23 76/42 L 01/10/22 23:50 88 20 72/42 L 01/10/22 23:40 86 23 72/43 L 01/10/22 23:30 88 20 71/50 L 01/10/22 23:20 77 23 72/45 L 01/10/22 23:10 89 20 70/39 L 01/10/22 23:00 90 21 59/41 L 01/10/22 22:52 88 23 69/45 L 01/10/22 22:51 67 23 71/44 L 01/10/22 22:50 80 23 01/10/22 22:40 87 23 01/10/22 22:36 68 22 71/41 L 01/10/22 22:30 89 21 01/10/22 22:20 84 23 70/43 L 01/10/22 22:12 86 22 70/41 L 01/10/22 22:10 74 15 01/10/22 21:50 97 H 20 70/42 L 01/10/22 21:40 98 H 22 67/46 L 01/10/22 21:30 87 24 73/44 L 01/10/22 21:23 90 23 69/41 L 01/10/22 21:20 95 H 18 68/39 L 01/10/22 21:14 95 H 18 01/10/22 21:10 93 H 21 67/39 L 01/10/22 21:07 18 Pulse Ox 01/11/22 08:45 89 L 01/11/22 08:30 05 08:15 93 01/11/22 08:00 92 01/11/22 07:45 94 01/11/22 07:30 92 01/11/22 07:27 94 01/11/22 07:15 94 01/11/22 07:00 94 01/11/22 06:00 94 01/11/22 05:54 94 01/11/22 05:47 93 01/11/22 05:30 95 01/11/22 05:00 93 01/11/22 04:30 98 01/11/22 04:00 96 01/11/22 03:50 97 01/11/22 03:40 96 01/11/22 03:39 96 01/11/22 03:36 96 01/11/22 03:30 96 01/11/22 03:25 01/11/22 03:24 01/11/22 02:10 95 01/11/22 02:00 93 01/11/22 01:50 94 01/11/22 01:47 95 01/11/22 01:40 91 01/11/22 01:30 93 01/11/22 01:29 94 01/11/22 01:27 93 01/11/22 01:20 94 01/11/22 01:15 93 01/11/22 01:12 93 01/11/22 01:11 91 01/11/22 01:07 91 01/11/22 01:02 96 01/11/22 01:01 87 L 01/11/22 00:50 01/11/22 00:46 93 01/11/22 00:40 93 01/11/22 00:30 94 01/11/22 00:20 91 01/11/22 00:10 96 01/11/22 00:00 01/10/22 23:50 05 23:40 05 23:30 98 01/10/22 23:20 97 01/10/22 23:10 96 01/10/22 23:00 96 01/10/22 22:52 96 05 22:51 95 01/10/22 22:50 95 05 22:40 96 05/05/22 22:36 96 01/10/22 22:30 95 01/10/22 22:20 95 01/10/22 22:12 96 01/10/22 22:10 94 01/10/22 21:50 95 01/10/22 21:40 96 01/10/22 21:30 99 01/10/22 21:23 98 01/10/22 21:20 98 01/10/22 21:14 98 01/10/22 21:10 99 01/10/22 21:07 98 Critical Care Time I have personally spent 30 minutes of critical care time in the direct management of this patient. This is a life/limb threatening event. This includes time spent evaluating patient, direct bedside care, chart review, placing orders, interpretation of diagnostic studies, discussion with consultants, patient, and/or family members regarding treatment decisions, as well as other required patient management activities. This time is exclusive of all separately billable procedures, and teaching time and separate from and in addition to any other critical care service time. Resident Activity Tracking Resident Involvement: Resident Care Provided Care Provided: Adult Hospital Medicine (1) Acute renal failure (ARF) Acute renal failure type: unspecified Qualified Code(s): N17.9 - Acute kidney failure, unspecified
[2022-01-11] MEDS ORDERED: MAGNESIUM SULFATE / D5W 1 GM/100 ML BAG IV ONE (10:15)
--- NOTE | 2022-01-11 11:25 | Urology Progress Note ---
Date of Service January 11, 2022 Assessment & Plan (1) Severe sepsis: (2) Urinary tract infection: Plan: 66yo F admitted with severe sepsis, MANDIE, urinalysis concerning for infection and CT scan showing left hydronephrosis and left distal ureteral calculi. - POD #0 s/p Cystoscopy, left retrograde pyelogram with radiographic interpretation, left ureteroscopy, left ureteral stent placement, Trinidad catheter placement - Pt intubated in ICU. Sedated. On pressors. - Febrile this morning at 37.9. - Labs reviewed - Wbc 25.34, Creatinine down from 5.27 on admit to 4.25 today - Continue to trend. - UA appeared grossly infected, culture pending. Blood culture preliminary gram negative bacilli. - Continues on IV Zosyn, can tailor further as cultures become available. - Continue supportive care and antibiotic therapy. - Maintain Trinidad catheter. - Urology will follow. Admission and Anticipated Discharge Date Admission Date: January 11, 2022 Subjective Pt examined at bedside. In ICU sedated and on ventilator. Trinidad catheter intact, draining light red urine. Review of Systems Review of Systems: ROS unobtainable due to sedation Physical Exam Constitutional: Intubated, sedated Gastrointestinal (Abdomen): Inspection/Auscultation: abdomen normal to inspection Skin: No visible rashes or lesions to exposed skin areas. Genitourinary: Trinidad catheter intact Results & Data ([facility]) Vital Signs (Past 12 Hours) Vital Signs Temp Pulse Pulse Resp BP BP BP 01/11/22 10:45 37.8 C H 92 H 01/11/22 10:30 37.9 C H 101 H 20 109/67 01/11/22 10:15 37.9 C H 97 H 01/11/22 10:00 38.0 C H 85 22 120/61 01/11/22 09:45 38.0 C H 96 H 01/11/22 09:30 38.0 C H 96 H 20 111/64 01/11/22 09:15 37.9 C H 98 H 01/11/22 09:00 37.9 C H 97 H 20 101/61 01/11/22 08:45 37.9 C H 94 H 19 01/11/22 08:30 89/58 L 01/11/22 08:15 110 H 01/11/22 08:00 97 H 23 88/59 L 01/11/22 07:45 97 H 20 01/11/22 07:30 100 H 19 80/54 L 01/11/22 07:27 100 H 22 01/11/22 07:15 100 H 20 01/11/22 07:00 101 H 20 87/55 L 01/11/22 06:00 95 H 22 80/45 L 01/11/22 05:54 37.3 C 96 H 22 70/43 L 01/11/22 05:47 100 H 18 86/48 L 01/11/22 05:30 103 H 18 85/54 L 01/11/22 05:00 107 H 14 109/50 L 01/11/22 04:30 108 H 18 139/69 01/11/22 04:00 37.1 C 117 H 108 H 17 144/79 H 139/69 01/11/22 03:50 117 H 19 136/68 01/11/22 03:40 130 H 26 H 156/81 H 01/11/22 03:39 132 H 20 164/82 H 01/11/22 03:36 130 H 24 01/11/22 03:30 133 H 15 155/83 H 01/11/22 03:25 131 H 16 162/74 H 01/11/22 03:24 128 H 16 01/11/22 02:10 37.6 C H 83 25 H 82/51 L 01/11/22 02:00 37.6 C H 84 25 H 77/48 L 01/11/22 01:50 37.5 C 87 29 H 73/50 L 01/11/22 01:47 37.5 C 85 26 H 75/48 L 01/11/22 01:40 37.5 C 86 26 H 75/47 L 01/11/22 01:30 37.5 C 86 24 77/45 L 01/11/22 01:29 37.4 C 87 26 H 72/47 L 01/11/22 01:27 37.4 C 85 26 H 74/47 L 01/11/22 01:20 37.1 C 88 27 H 72/47 L 01/11/22 01:15 36.5 C 87 27 H 80/47 L 01/11/22 01:12 92 H 27 H 79/48 L 01/11/22 01:11 90 32 H 77/44 L 01/11/22 01:07 94 H 25 H 74/40 L 01/11/22 01:02 91 H 27 H 76/43 L 01/11/22 01:01 89 26 H 01/11/22 00:50 36.8 C 01/11/22 00:46 89 20 87/44 L 01/11/22 00:40 88 26 H 77/47 L 01/11/22 00:30 88 23 75/43 L 01/11/22 00:20 24 75/46 L 01/11/22 00:10 90 20 69/42 L 01/11/22 00:00 90 23 76/42 L 01/10/22 23:50 88 20 72/42 L 01/10/22 23:40 86 23 72/43 L 01/10/22 23:30 88 20 71/50 L Pulse Ox 01/11/22 10:45 94 01/11/22 10:30 94 01/11/22 10:15 94 01/11/22 10:00 93 01/11/22 09:45 93 01/11/22 09:30 93 01/11/22 09:15 93 01/11/22 09:00 92 01/11/22 08:45 89 L 01/11/22 08:30 01/11/22 08:15 93 01/11/22 08:00 92 01/11/22 07:45 94 01/11/22 07:30 92 01/11/22 07:27 94 01/11/22 07:15 94 01/11/22 07:00 94 01/11/22 06:00 94 01/11/22 05:54 94 01/11/22 05:47 93 01/11/22 05:30 95 01/11/22 05:00 93 01/11/22 04:30 98 01/11/22 04:00 96 01/11/22 03:50 97 01/11/22 03:40 96 01/11/22 03:39 96 01/11/22 03:36 96 01/11/22 03:30 96 01/11/22 03:25 01/11/22 03:24 01/11/22 02:10 95 01/11/22 02:00 93 01/11/22 01:50 94 01/11/22 01:47 95 01/11/22 01:40 91 01/11/22 01:30 93 01/11/22 01:29 94 01/11/22 01:27 93 01/11/22 01:20 94 01/11/22 01:15 93 01/11/22 01:12 93 01/11/22 01:11 91 01/11/22 01:07 91 01/11/22 01:02 96 01/11/22 01:01 87 L 01/11/22 00:50 01/11/22 00:46 93 01/11/22 00:40 93 01/11/22 00:30 94 01/11/22 00:20 91 01/11/22 00:10 96 01/11/22 00:00 01/10/22 23:50 01/10/22 23:40 01/10/22 23:30 98 PG Care Time/CCT Total # of Minutes Spent Total Time Spent with Patient: Total time spent is greater than 50% in coordination of care (as documented) at patient's floor/unit and/or counseling patient: Coding Level of Care Code 40146 Subseq Hosp Care Lvl 2 Diagnoses Severe sepsis A41.9; R65.20 Urinary tract infection N39.0
--- NOTE | 2022-01-11 12:14 | Electrocardiogram Report ---
Test Reason : Blood Pressure : / mmHG Vent. Rate : 106 BPM Atrial Rate : 106 BPM P-R Int : 138 ms QRS Dur : 074 ms QT Int : 336 ms P-R-T Axes : 079 019 062 degrees QTc Int : 446 ms Sinus tachycardia Otherwise normal ECG When compared with ECG of 24-MAY-2015 09:06, Vent. rate has increased BY 44 BPM Confirmed by Bradley Rosas ([id number]) on 01/11/2022 12:14:25 PM Referred By: REFERRED SELF Confirmed By:Bradley Rosas
[2022-01-11 12:30] LABS: BUN Creatinine Ratio 14.2 (10-20); Calcium 6.6 mg/dl (8.5-10.1); Est GFR (Non-African American) 10.3 ml/min; Potassium 4.6 mmol/L (3.5-5.1)
--- NOTE | 2022-01-11 13:37 | Billing Data ---
Date of Service January 11, 2022 Coding Level of Care Code Critical Care ea addt'l 30 min
[2022-01-11] MEDS: PIPERACILLIN/TAZOBACTAM 4.5 GM in DEXTROSE 5% 100 ML IV SCH (13:58)
[2022-01-11] MEDS ORDERED: NORMOSOL-R 500 ML IV ONE (15:03)
[2022-01-11] MEDS: PANTOprazole 40 MG in SYRINGE 0 ML IV SCH (15:19)
[2022-01-11] MEDS: NOREPINEPHRINE/D5W 16 MG/500 ML BAG IV SCH (15:37)
--- NOTE | 2022-01-11 16:33 | Hospitalist Progress Note ---
Date of Service January 11, 2022 Assessment & Plan (1) Septic shock: Plan: 66yo female with history of hypothyroidism, hyperparathyroidism and depression presenting with 3-4 days of generalized illness, nausea with non-bloody/non-bilious emesis, fevers/chills/rigors as well as abdominal pain and back pain. Patient with septic shock in the ER. 6yo F admitted with severe sepsis, MANDIE, urinalysis concerning for infection and CT scan showing left hydronephrosis and left distal ureteral calculi. - POD #0 s/p Cystoscopy, left retrograde pyelogram with radiographic interpretation, left ureteroscopy, left ureteral stent placement, Trinidad catheter placement - Pt intubated in ICU. Sedated. On pressors. -Gram-negative rods are growing in the blood culture, urine culture Currently on Zosyn and daptomycin was discussed with ship's cook to see if he can discontinue (2) Hypothyroidism: Plan: Currently on Synthroid (3) History of hyperparathyroidism: (4) Endogenous depression: (5) Renal stone: Admission and Anticipated Discharge Date Admission Date: January 11, 2022 Subjective Pt examined at bedside. In ICU sedated and on ventilator. Trinidad catheter intact, draining light red urine. Physical Exam Physical Exam: General: Intubated sedated Neck: No lymphadenopathy, supple Respiratory: Lungs are clear to auscultation no chest abnormality Cardiovascular: Regular rate and rhythm no murmur no gallop vegetation Abdomen: Soft bowel sounds active Extremities: No edema no tenderness Skin: No jaundice no rash iate Results & Data Results & Data ([facility]) Vital Signs (Past 12 Hours) Vital Signs Temp Pulse Resp BP Pulse Ox 01/11/22 15:00 37.2 C 79 21 116/64 01/11/22 14:45 37.3 C 79 17 01/11/22 14:30 37.3 C 78 18 118/65 01/11/22 14:15 37.3 C 78 21 01/11/22 14:00 37.4 C 81 24 111/61 01/11/22 13:45 37.4 C 81 20 01/11/22 13:30 37.4 C 81 19 111/62 01/11/22 13:15 37.5 C 81 19 01/11/22 13:00 37.5 C 82 19 112/64 01/11/22 12:45 37.5 C 82 20 94 01/11/22 12:30 37.6 C H 83 19 113/63 94 01/11/22 12:15 37.6 C H 84 20 94 01/11/22 12:00 37.7 C H 85 18 105/63 94 01/11/22 11:45 37.8 C H 87 19 94 01/11/22 11:30 37.8 C H 88 17 108/64 94 01/11/22 11:22 89 23 94 01/11/22 11:15 37.8 C H 89 22 94 01/11/22 11:00 37.8 C H 89 19 111/60 93 01/11/22 10:45 37.8 C H 92 H 20 94 01/11/22 10:30 37.9 C H 101 H 20 109/67 94 01/11/22 10:15 37.9 C H 97 H 20 94 01/11/22 10:00 38.0 C H 85 22 120/61 93 01/11/22 09:45 38.0 C H 96 H 22 93 01/11/22 09:30 38.0 C H 96 H 20 111/64 93 01/11/22 09:15 37.9 C H 98 H 20 93 01/11/22 09:00 37.9 C H 97 H 20 101/61 92 01/11/22 08:45 37.9 C H 94 H 19 89 L 01/11/22 08:30 89/58 L 01/11/22 08:15 110 H 20 93 01/11/22 08:00 97 H 23 88/59 L 92 01/11/22 07:45 97 H 20 94 01/11/22 07:30 100 H 19 80/54 L 92 01/11/22 07:27 100 H 22 94 01/11/22 07:15 100 H 20 94 01/11/22 07:00 101 H 20 87/55 L 94 01/11/22 06:00 95 H 22 80/45 L 94 01/11/22 05:54 37.3 C 96 H 22 70/43 L 94 01/11/22 05:47 100 H 18 86/48 L 93 01/11/22 05:30 103 H 18 85/54 L 95 01/11/22 05:00 107 H 14 109/50 L 93 PG Care Time/CCT Total # of Minutes Spent Total Time Spent with Patient: Total time spent is greater than 50% in coordination of care (as documented) at patient's floor/unit and/or counseling patient: Coding Level of Care Code 82226 Subseq Hosp Care Lvl 3 Diagnoses Septic shock A41.9; R65.21 Hypothyroidism E03.9 History of hyperparathyroidism Z86.39 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
[2022-01-11] MEDS: HEPARIN SOD 5,000 UNIT/0.5 ML VIAL SQ SCH (20:51)
[2022-01-12] MEDS: PIPERACILLIN/TAZOBACTAM 4.5 GM in DEXTROSE 5% 100 ML IV SCH ×2 (01:35→14:22)
[2022-01-12] MEDS: NORMOSOL-R 1,000 ML IV SCH ×3 (01:41→21:07)
[2022-01-12] MEDS: NOREPINEPHRINE/D5W 16 MG/500 ML BAG IV SCH (03:13)
[2022-01-12] MEDS: VASOPRESSIN 20 UNITS in 0.9 % SODIUM CHLORIDE 100 ML IV SCH ×3 (05:11→21:05)
[2022-01-12 05:17] LABS: iSTAT Art Bld Gas pCO2 Correct 39 mmHg (35-46); iSTAT Arterial Blood Gas HCO3 20 meg/L (19-24); iSTAT Arterial Blood Gas pCO2 39 mmHg (35-46); iSTAT Arterial Blood Gas pH 7.31 (7.35-7.45); iSTAT Arterial Blood Gas pO2 91 mmHg (80-95); iSTAT Arterial Blood Gas pO2 C 93; iSTAT Carbon Dioxide 21 mmol/L (24-31); iSTAT FiO2 30 %; iSTAT Hematocrit 24 % (37-47); iSTAT Hemoglobin 8.2 g/dl (12.0-16.0); iSTAT Site Art Line; iSTAT Sodium 122 mmol/L (135-144)
[2022-01-12 05:22] LABS: Hematocrit (blood only) 25.9 % (37-47); Hemoglobin 9.2 g/dL (12.0-16.0); Mean Corpuscular Hemoglobin 31.9 pg (25-34); Mean Corpuscular Hgb Conc 35.5 g/dL (32-36); Mean Corpuscular Volume 89.9 fL (80-100); RDW Coefficient of Variation 14.5 % (11.5-14.5); RDW Standard Deviation 48.3 fL (36.4-46.3); Red Blood Count 2.88 M/uL (4.2-5.4); White Blood Count 28.08 K/uL (4.8-10.8)
[2022-01-12 05:41] LABS: ALC (manual) 0.98 K/uL (1.2-3.4); ANC (manual) 24.91 K/uL (1.4-6.5); Dohle Bodies 1+; Echinocytes 1+; Lymphocytes # (manual) 0.98 K/uL (1.2-3.4); Lymphocytes % (manual) 3.5 %; Mean Platelet Volume 10.7 fL (7.4-10.4); Monocytes # (manual) 2.19 K/uL (0.11-0.59); Monocytes % (manual) 7.8 %; Neutrophils # (manual) 24.91 K/uL (1.4-6.5); Neutrophils % (manual) 88.7 %; Platelet Count 72 K/uL (130-400); Platelet Estimate Decreased (Normal); Toxic Vacuolation 1+
[2022-01-12 05:45] LABS: Albumin Level 2.3 gm/dl (3.4-5.0); BUN Creatinine Ratio 16.8 (10-20); Bilirubin,Total 1.5 mg/dl (0.2-1.0); Calcium 6.3 mg/dl (8.5-10.1); Creatinine Clr Calc Pharmacy 14.3 ml/min; Est GFR (African American) 14.7 ml/min; Est GFR (Non-African American) 12.7 ml/min; Magnesium 2.3 mg/dl (1.7-2.4); Phosphorus 3.8 mg/dl (2.5-4.9); Potassium 4.1 mmol/L (3.5-5.1); Total Protein 4.9 gm/dl (6.0-8.3)
[2022-01-12] MEDS: LEVOTHYROXINE SODIUM 50 MCG TABLET PO SCH (06:34)
--- NOTE | 2022-01-12 06:36 | Critical Care Progress Note ---
Date of Service January 12, 2022 Assessment & Plan (1) Admitted to intensive care unit: Plan: Reason Critically Ill: 66-year-old female with severe sepsis with septic shock secondary to urinary tract source requiring close hemodynamic monitoring, vasopressor support, s/p L ureteral stent placement NEURO - * CAM ICU: NEGATIVE * Sedation- Propofol at 10 mcg/kg/min, fentanyl 75 mcg/hr * Analgesia- None at present Currently sedated and non-responsive, wean as able CARDIAC/VASCULAR - * Hypotension: * Secondary to sepsis syndrome * Appropriately resuscitated with greater than 3 L normal saline in the emergency department * Currently on levophed 0.16 mcg/kg/min, vasopressin 0.04 units/min * BP improved on pressor support- currently MAP > 65 * Wean pressors as tolerated * Telemetry monitoring RESPIRATORY - Acute respiratory failure secondary to septic shock * Ventilator settings- RR 22, FiO2 21, TV 315, PEEP 5. FiO2 decreased from 30, oxygenation stable. * Extubate once BPs stable + sedation/ventilation settings weaned * Anticipate 1-3 more days of mechanical ventilation GI/NUTRITION - * NPO while sedated * Normosol IVF 100 ml/hr * Continue Pantoprazole 40 mg IV daily RENAL/LYTES - * Acute renal failure: * Likely prerenal in the setting of profound hypotension as well as likely dehydration with ongoing vomiting and GI losses. * Strict I's and O's * Cr continuing to improve, 3.6 today * Hypomagnesemia, improved * Mg 2.3 today s/p repletion * Hyponatremia: * Na 124, likely hypovolemic hyponatremia in the setting of GI losses * Continue fluid repletion * Hypocalcemia * Ca 6.3, ionized calcium 0.9 today- began repletion with calcium gluconate * Repeat BMP in AM * High anion gap metabolic acidosis: * Multifactorial in the setting of acute renal failure with uremia and lactic acidosis. * Acidosis improving with pH 7.31 today, AG remains 12 * Continue fluid repletion * Trend BMP - * Infected ureteral stone * S/p OR- L ureteral stent placed 01/11 * Continue Zosyn for gram negative bacilli likely E Coli bacteremia, stopped daptomycin 01/11 * Urine cultures pending ENDO - * No h/o DM * BSGs per unit protocol. ISS --> gtt per unit policy. * Hypothyroidism: * Continue home Rx when able. HEME - * Anemia: * Hgb 9.2 stable, appears to have a chronic anemia w/ dilutional component s/p 3 L Crystalloid. * Thrombocytopenia: * Plts further decreasing 105 to 72, likely consumptive coagulopathy in the setting of severe sepsis. ID - * Septic shock secondary to gram negative bacteremia + urinary infection: * UA grossly infected, BCx with gram negative bacilli, UCx pending * Procalcitonin 200+, persistently elevated * Continue Zosyn (day 3/14 of therapy) * Lactate normalized LINES/IV ACCESS - * PIVs x3 * Trinidad * LEFT Radial Arterial line * LEFT central line DVT PROPHYLAXIS - * Heparin 5000u BID (2) Severe sepsis: (3) Septic shock: (4) Acute renal failure (ARF): (5) Renal stone: (6) Urinary tract infection: Admission and Anticipated Discharge Date Admission Date: January 11, 2022 Supervising Physician Co-Signing Physician Notes Dr. Prabhakar was resident physician during care of patient. I separately evaluated patient for hayes portions of the history and the exam. I was present during the critical portion of medical decision making, and I discussed the case with the resident. I generally agree with the findings and plan. Decreasing vasoactive requirements, still remains critically ill requiring significant support however improved. Replating electrolytes. Thrombocytopenia likely secondary to underlying disease process we will continue with heparin DVT prophylaxis. Metabolic acidosis improving, creatinine slowly downtrending. Continue current supportive care. Subjective No acute events overnight. Slow wean of pressors ongoing. Sedated and intubated on evaluation this morning. Did not respond to any commands. Review of Systems Review of Systems: Unable to assess due to sedation Physical Exam Physical Exam: GENERAL - intubated, sedated, does not appear to be in distress, left central line in place HEAD - NC/AT. EYES - PERRL EARS - No deformities of external structures noted on gross examination bilaterally. NOSE - Midline and without cyanosis. No epistaxis or purulent drainage noted. MOUTH/OROPHARYNX - Unable to fully assess due to intubation, lips appeared moist NECK - Neck supple to palpation LUNGS - CTAB, no accessory muscle use or intercostal retractions, no wheezes or crackles identified CARDIAC - RRR with S1/S2. No murmur, rubs, or gallops appreciated. ABDOMEN - Soft, nontender, nondistended, normoactive bowel sounds EXTREMITIES - No clubbing or peripheral cyanosis. No peripheral edema. Distal pulses b/l LE intact. Normal tone and bulk of b/l UE and LE NEUROLOGIC - Sedated PSYCH - Sedated Results & Data Results & Data ([facility]) Vital Signs (Past 12 Hours) Vital Signs Temp Pulse Resp BP Pulse Ox 01/12/22 05:04 71 24 97 01/12/22 01:30 37.3 C 75 20 119/64 95 01/12/22 01:06 76 01/12/22 01:00 37.3 C 78 20 122/66 95 01/12/22 00:30 37.3 C 78 20 120/61 95 01/12/22 00:00 37.3 C 76 20 125/66 95 01/11/22 23:30 37.2 C 75 20 125/64 94 01/11/22 23:00 37.2 C 75 20 129/69 95 01/11/22 22:33 74 21 95 01/11/22 22:30 37.2 C 75 20 124/67 95 01/11/22 22:00 37.2 C 74 20 125/66 95 01/11/22 21:30 37.2 C 76 20 122/65 95 01/11/22 21:00 37.2 C 74 20 117/62 94 01/11/22 20:30 37.1 C 75 20 112/61 90 01/11/22 20:00 37.1 C 74 20 109/54 L 93 01/11/22 19:47 75 20 95 01/11/22 19:30 37.1 C 73 20 123/64 95 01/11/22 19:00 37.1 C 75 19 115/62 95 Critical Care Time I have personally spent 45 minutes of critical care time in the direct management of this patient. This is a life/limb threatening event. This includes time spent evaluating patient, direct bedside care, chart review, placing orders, interpretation of diagnostic studies, discussion with consultants, patient, and/or family members regarding treatment decisions, as well as other required patient management activities. This time is exclusive of all separately billable procedures, and teaching time and separate from and in addition to any other critical care service time. Resident Activity Tracking Resident Involvement: Resident Care Provided Care Provided: Adult Hospital Medicine (1) Acute renal failure (ARF) Acute renal failure type: unspecified Qualified Code(s): N17.9 - Acute kidney failure, unspecified
--- NOTE | 2022-01-12 07:21 | XRay Report ---
XR chest 1V portable HISTORY: 66 years-old Female f/u acute respiratory failure COMPARISON: Chest radiograph 01/11/2022 TECHNIQUE: Portable AP view of the chest FINDINGS: Endotracheal tube overlies the midline, 3.5 cm superior to the montserrat. Left subclavian central venous catheter distal tip is noted in the expected location of the mid SVC. Enteric tube is present which courses into the stomach with distal tip outside the [id number]. Numerous telemetry leads are coil ed over the chest. No pneumothorax. Small pleural effusions. Pulmonary vascular congestion with progr essive interstitial coarsening. Mild bibasilar opacities, left greater than right. Degenerative mensah es of the shoulders and spine. IMPRESSION: 1. Lines and tubes as above. No pneumothorax. 2. Cardiomegaly with suggested pulmonary edema. 3. Small pleural effusions with left greater than right bibasilar consolidation. ACT 112: Negative or not required by law. The above report was generated using voice recognition software. It may contain grammatical, syntax o r spelling errors. Electronically signed by: Abhishek Harry M.D. 01/12/2022 7:19 AM
--- NOTE | 2022-01-12 08:59 | Urology Progress Note ---
Date of Service January 12, 2022 Assessment & Plan (1) Septic shock: (2) Renal stone: Plan: septic shock - secondary to UTI and obstructing stone - now s/p stent - remains in very critical condition - intubated, sedated, on pressors - on broad spectrum abx with fluid resuscitation - no further interventions at the moment, but we jimmy continue to follow given the acuity of her situation Admission and Anticipated Discharge Date Admission Date: January 11, 2022 Subjective remains critically ill intubated sedated on pressors leukocytosis has worsened slightly, creatinine has improved slightly overall - minimal change Physical Exam Physical Exam: sedated intubated abd soft urine clear Results & Data ([facility]) Vital Signs (Past 12 Hours) Vital Signs Temp Pulse Resp BP Pulse Ox 01/12/22 08:00 69 01/12/22 07:00 71 22 94 01/12/22 05:04 71 24 97 01/12/22 01:30 37.3 C 75 20 119/64 95 01/12/22 01:06 76 01/12/22 01:00 37.3 C 78 20 122/66 95 01/12/22 00:30 37.3 C 78 20 120/61 95 01/12/22 00:00 37.3 C 76 20 125/66 95 01/11/22 23:30 37.2 C 75 20 125/64 94 01/11/22 23:00 37.2 C 75 20 129/69 95 01/11/22 22:33 74 21 95 01/11/22 22:30 37.2 C 75 20 124/67 95 01/11/22 22:00 37.2 C 74 20 125/66 95 01/11/22 21:30 37.2 C 76 20 122/65 95 01/11/22 21:00 37.2 C 74 20 117/62 94 PG Care Time/CCT Total # of Minutes Spent Total Time Spent with Patient: Total time spent is greater than 50% in coordination of care (as documented) at patient's floor/unit and/or counseling patient: Coding Level of Care Code 51669 Subseq Hosp Care Lvl 3 Diagnoses Septic shock A41.9; R65.21 Renal stone N20.0
[2022-01-12] MEDS ORDERED: STAT IV STA (09:04)
--- NOTE | 2022-01-12 09:07 | Billing Data ---
Date of Service January 12, 2022 Coding Level of Care Code Critical Care 1st - mins
[2022-01-12] MEDS: HEPARIN SOD 5,000 UNIT/0.5 ML VIAL SQ SCH ×2 (09:09→21:05)
[2022-01-12] MEDS: PARoxetine HCL 10 MG TAB PO SCH (09:09)
[2022-01-12] MEDS ORDERED: CALCIUM GLUCONATE 10% 3,000 MG in DEXTROSE 5% 100 ML IV ONE (09:15)
[2022-01-12] MEDS: PROPOFOL BOLUS FROM BAG IV PRN ×3 (09:35→16:30)
[2022-01-12] MEDS: PANTOprazole 40 MG in SYRINGE 0 ML IV SCH (10:27)
--- NOTE | 2022-01-12 12:41 | Hospitalist Progress Note ---
Date of Service January 12, 2022 Assessment & Plan (1) Septic shock: Plan: 66yo female with history of hypothyroidism, hyperparathyroidism and depression presenting with 3-4 days of generalized illness, nausea with non-bloody/non-bilious emesis, fevers/chills/rigors as well as abdominal pain and back pain. Patient with septic shock in the ER. 6yo F admitted with severe sepsis, MANDIE, urinalysis concerning for infection and CT scan showing left hydronephrosis and left distal ureteral calculi. - POD #1s/p Cystoscopy, left retrograde pyelogram with radiographic interpretation, left ureteroscopy, left ureteral stent placement, Trinidad catheter placement - Pt intubated in ICU. Sedated. On pressors. #Septic shock swith gram-negative bacilli complicated with encephalopathy, hypotension, acute kidney injury and respiratory failure Urine and blood culture both positive for gram-negative bacilli Currently on Zosyn Follow-up final dose blood and urine culture White cell count is trending up CBC tomorrow -Currently on pressor Levophed 0.16 MCG/KG/M IN and vasopressin 0.04 units/min, currently map is over 65 -Currently sedated with propofol -Currently intubated for respiratory failure on assist-control according to the carton repairer notes possible extubation within 1 to 2 days -Secondary to infected kidney stone, status post left ureteral stent placement on 01/11 #Acute kidney injury Creatinine is trending down Currently around 3 Continue IV fluid -Complicated with anion gap metabolic acidosis pH of 7.31 anion gap of 12 BMP tomorrow #Hyponatremia Most likely hypoosmolar hypervolemic hyponatremia Continue IV fluid #History of hypothyroidism Patient was taking Synthroid If patient persistently intubated will meet switch IV Solu-Medrol We discussed with carton repairer * (2) Hypothyroidism: Plan: Currently on Synthroid (3) History of hyperparathyroidism: Plan: Follow-up please (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 (5) Renal stone: Plan: Plan as mentioned above Admission and Anticipated Discharge Date Admission Date: January 11, 2022 Subjective No acute events overnight. Slow wean of pressors ongoing. Sedated and intubated on evaluation this morning. Did not respond to any commands. Physical Exam Physical Exam: General: Intubated sedated Neck: No lymphadenopathy, supple Respiratory: Lungs are clear to auscultation no chest abnormality Cardiovascular: Regular rate and rhythm no murmur no gallop vegetation Abdomen: Soft bowel sounds active Extremities: No edema no tenderness Skin: No jaundice no rash iate Results & Data Results & Data ([facility]) Vital Signs (Past 12 Hours) Vital Signs Temp Pulse Resp BP BP Pulse Ox 01/12/22 12:21 120/57 L 01/12/22 11:00 69 22 93 01/12/22 10:41 104/52 L 01/12/22 10:00 37.1 C 70 22 112/64 93 01/12/22 09:00 37.0 C 68 22 115/64 92 01/12/22 08:00 36.9 C 67 22 108/59 L 93 01/12/22 07:30 36.9 C 69 22 90/48 L 91 01/12/22 07:00 36.9 C 69 22 114/64 94 01/12/22 05:04 71 24 97 01/12/22 01:30 37.3 C 75 20 119/64 95 01/12/22 01:06 76 01/12/22 01:00 37.3 C 78 20 122/66 95 PG Care Time/CCT Total # of Minutes Spent Total Time Spent with Patient: Total time spent is greater than 50% in coordination of care (as documented) at patient's floor/unit and/or counseling patient: Coding Level of Care Code 09997 Subseq Hosp Care Lvl 3 Diagnoses Septic shock A41.9; R65.21 Hypothyroidism E03.9 History of hyperparathyroidism Z86.39 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
[2022-01-12] MEDS: propofoL 1,000 MG/100 ML VIAL IV SCH (16:30)
[2022-01-13] MEDS ORDERED: DAPTOmycin 325 MG in SYRINGE 0 ML IV SCH
[2022-01-13] MEDS: fentaNYL citrate 2,500 MCG/250 ML BAG IV SCH ×3 (00:49→23:00)
[2022-01-13] MEDS: PIPERACILLIN/TAZOBACTAM 4.5 GM in DEXTROSE 5% 100 ML IV SCH (02:07)
[2022-01-13 04:38] LABS: iSTAT Art Bld Gas pCO2 Correct 33 mmHg (35-46); iSTAT Art Bld Gas pH Corrected 7.427 (7.35-7.45); iSTAT Arterial Blood Gas HCO3 22 meg/L (19-24); iSTAT Arterial Blood Gas pCO2 32 mmHg (35-46); iSTAT Arterial Blood Gas pH 7.44 (7.35-7.45); iSTAT Arterial Blood Gas pO2 61 mmHg (80-95); iSTAT Arterial Blood Gas pO2 C 63; iSTAT Carbon Dioxide 23 mmol/L (24-31); iSTAT FiO2 21 %; iSTAT Hematocrit 23 % (37-47); iSTAT Hemoglobin 7.8 g/dl (12.0-16.0); iSTAT Potassium 3.5 mmol/L (3.3-5.0); iSTAT Site Art Line; iSTAT Sodium 127 mmol/L (135-144)
[2022-01-13] MEDS: propofoL 1,000 MG/100 ML VIAL IV SCH ×3 (04:54→18:00)
[2022-01-13 05:11] LABS: Albumin Level 2.2 gm/dl (3.4-5.0); Bilirubin Direct 1.4 mg/dl (0-0.2); Calcium 6.9 mg/dl (8.5-10.1); Creatinine Clr Calc Pharmacy 20.3 ml/min; Est GFR (African American) 22.4 ml/min; Est GFR (Non-African American) 19.3 ml/min; Magnesium 2.3 mg/dl (1.7-2.4); Phosphorus 2.4 mg/dl (2.5-4.9); Potassium 3.4 mmol/L (3.5-5.1); Total Protein 4.5 gm/dl (6.0-8.3)
[2022-01-13 05:17] LABS: Hematocrit (blood only) 22.5 % (37-47); Hemoglobin 8.1 g/dL (12.0-16.0); Mean Corpuscular Hemoglobin 31.9 pg (25-34); Mean Corpuscular Volume 88.6 fL (80-100); Platelet Count 80 K/uL (130-400); Red Blood Count 2.54 M/uL (4.2-5.4); White Blood Count 17.83 K/uL (4.8-10.8)
[2022-01-13 05:18] LABS: Mean Platelet Volume 11.1 fL (7.4-10.4); RDW Coefficient of Variation 13.7 % (11.5-14.5); RDW Standard Deviation 45.5 fL (36.4-46.3)
[2022-01-13 05:19] LABS: ALC (manual) 0.93 K/uL (1.2-3.4); ANC (manual) 15.98 K/uL (1.4-6.5); Dohle Bodies 1+; Lymphocytes # (manual) 0.93 K/uL (1.2-3.4); Lymphocytes % (manual) 5.2 %; Monocytes # (manual) 0.62 K/uL (0.11-0.59); Monocytes % (manual) 3.5 %; Myelocytes % (manual) 1.7 %; Neutrophils # (manual) 15.98 K/uL (1.4-6.5); Neutrophils % (manual) 89.6 %; Toxic Granulation Occasional; Toxic Vacuolation Occasional
[2022-01-13] MEDS: VASOPRESSIN 20 UNITS in 0.9 % SODIUM CHLORIDE 100 ML IV SCH (05:32)
[2022-01-13] MEDS: LEVOTHYROXINE SODIUM 75 MCG TABLET PO SCH (05:32)
[2022-01-13] MEDS ORDERED: POTASSIUM CHLORIDE 10 MEQ TABCR PO STA (06:25)
[2022-01-13] MEDS ORDERED: POTASSIUM PHOS 3 MMOL/1 ML INFUSION IV STA (06:25)
[2022-01-13] MEDS: NORMOSOL-R 1,000 ML IV SCH ×2 (06:26→16:16)
[2022-01-13] MEDS ORDERED: POTASSIUM PHOSPHATE 15 MMOL in SODIUM CHLORIDE 0.9% 250 ML IV ONE (06:45)
[2022-01-13] MEDS ORDERED: POTASSIUM CHLORIDE 20 MEQ/15 ML UDC NG STA (06:56)
--- NOTE | 2022-01-13 07:04 | XRay Report ---
XR chest 1V portable HISTORY: 66 years-old Female f/u acute respiratory failure COMPARISON: Chest radiograph 01/12/2022 TECHNIQUE: Portable AP view of the chest FINDINGS: Endotracheal tube overlies the midline, 2.2 cm superior to the montserrat. Left subclavian [id number] catheter is unchanged. Enteric tube courses below the diaphragm. Small pleural effusions with bibasil ar consolidation. Pulmonary vascular congestion with interstitial coarsening is unchanged. No pneumot horax. The bones appear grossly intact. IMPRESSION: 1. Lines and tubes as above. 2. Cardiomegaly with unchanged pulmonary edema. 3. Small pleural effusions with persistent bibasilar opacities. ACT 112: Negative or not required by law. The above report was generated using voice recognition software. It may contain grammatical, syntax o r spelling errors. Electronically signed by: Abhishek Harry M.D. 01/13/2022 7:03 AM
[2022-01-13] MEDS: PARoxetine HCL 10 MG TAB PO SCH (08:14)
[2022-01-13] MEDS: HEPARIN SOD 5,000 UNIT/0.5 ML VIAL SQ SCH ×2 (08:14→20:55)
[2022-01-13] MEDS: NOREPINEPHRINE/D5W 16 MG/500 ML BAG IV SCH ×3 (08:35→19:23)
--- NOTE | 2022-01-13 09:36 | Critical Care Progress Note ---
Date of Service January 13, 2022 Assessment & Plan (1) Admitted to intensive care unit: Plan: Reason Critically Ill: 66-year-old female with severe sepsis with septic shock secondary to urinary tract source requiring close hemodynamic monitoring, vasopressor support, s/p L ureteral stent placement NEURO - * CAM ICU: NEGATIVE * Sedation- Propofol at 10 mcg/kg/min, fentanyl 50 mcg/hr * Analgesia- None at present -Weaning sedatives to hopefully proceed with liberation from ventilator CARDIAC/VASCULAR - * Hypotension: Improved * Secondary to sepsis syndrome. * BP improving on pressor support- currently MAP > 65 * Wean pressors as tolerated * Telemetry monitoring RESPIRATORY - Acute respiratory insufficiency secondary to septic shock GI/NUTRITION - * NPO while sedated * Normosol IVF rate lowered 125 to 100 ml/hr * Pantoprazole 40 mg IV daily RENAL/LYTES - * Acute renal failure: Improving * Likely prerenal in the setting of profound hypotension as well as likely dehydration with ongoing vomiting and GI losses. * Trinidad placed, strict I's and O's * Hypomagnesemia: Resolved * Hyponatremia: Improving * High anion gap metabolic acidosis: Improved * Multifactorial in the setting of acute renal failure with uremia and lactic acidosis. * Continue to trend with improvement in patient's status * Repeat BMP at noon - * Infected ureteral stone * S/p OR- L ureteral stent placed 01/11 * De-escalate to ceftriaxone Day 3 effective therapy * Pansensitive E. coli ENDO - * No h/o DM * BSGs per unit protocol. ISS --> gtt per unit policy. * Hypothyroidism: * Continue home Rx when able. HEME - * Anemia: Stable * Thrombocytopenia: * Likely secondary to bone marrow suppression ID - * Severe Sepsis with Septic Shock: * E. coli bacteremia secondary to urinary source * Lactate 3.1 to 1.7 LINES/IV ACCESS - * PIVs x3 * Trinidad * LEFT Radial Arterial line * LEFT central line DVT PROPHYLAXIS - * Heparin 5000u BID (2) Severe sepsis: (3) Septic shock: (4) Acute renal failure (ARF): (5) Renal stone: (6) Urinary tract infection: Admission and Anticipated Discharge Date Admission Date: January 11, 2022 Subjective No overnight events, was able to wean down vasoactive's significantly Review of Systems Review of Systems: Unobtainable due to endotracheal tube Physical Exam Physical Exam: General: Sedated. nontoxic. Skin: Warm, dry, Head: Atraumatic Ears, nose, mouth and throat: Airway obscured by endotracheal tube Cardiovascular: Normal peripheral perfusion Respiratory: Ventilator settings reviewed Gastrointestinal: Non distended Musculoskeletal: No deformity Results & Data Results & Data ([facility] [place]) Vital Signs (Past 12 Hours) Vital Signs Temp Pulse Resp BP Pulse Ox 01/13/22 08:00 61 01/13/22 07:15 60 22 93 01/13/22 04:11 62 22 95 01/13/22 02:30 37.5 C 65 12 84/60 L 94 01/13/22 02:00 37.5 C 65 17 100/57 L 95 01/13/22 01:55 37.5 C 64 22 105/63 95 01/13/22 01:30 37.5 C 63 22 106/62 94 01/13/22 01:00 37.5 C 63 22 103/60 95 01/13/22 00:30 37.4 C 66 22 101/56 L 97 01/13/22 00:00 37.4 C 62 22 103/63 95 01/12/22 23:30 37.3 C 63 22 107/66 94 01/12/22 23:00 37.3 C 61 22 103/58 L 94 01/12/22 22:54 64 23 94 01/12/22 22:30 37.3 C 62 15 102/60 94 01/12/22 22:00 37.3 C 64 17 102/60 94 01/12/22 21:30 37.3 C 62 22 99/58 L 94 Critical Care Results & Data Vital Signs (Past 12 Hours) Vital Signs Temp Pulse Resp BP Pulse Ox 01/13/22 08:00 61 01/13/22 07:15 60 22 93 01/13/22 04:11 62 22 95 01/13/22 02:30 37.5 C 65 12 84/60 L 94 01/13/22 02:00 37.5 C 65 17 100/57 L 95 01/13/22 01:55 37.5 C 64 22 105/63 95 01/13/22 01:30 37.5 C 63 22 106/62 94 01/13/22 01:00 37.5 C 63 22 103/60 95 01/13/22 00:30 37.4 C 66 22 101/56 L 97 01/13/22 00:00 37.4 C 62 22 103/63 95 01/12/22 23:30 37.3 C 63 22 107/66 94 01/12/22 23:00 37.3 C 61 22 103/58 L 94 01/12/22 22:54 64 23 94 01/12/22 22:30 37.3 C 62 15 102/60 94 01/12/22 22:00 37.3 C 64 17 102/60 94 Lab & Micro Results (Past 24 Hours) RBC 2.54 M/uL (4.2-5.4) L 01/13/22 WBC 17.83 K/uL (4.8-10.8) H 01/13/22 Hgb 8.1 g/dL (12.0-16.0) L 01/13/22 Hct 22.5 % (37-47) L 01/13/22 MCV 88.6 fL (80-100) 01/13/22 MCH 31.9 pg (25-34) 01/13/22 MCHC 36.0 g/dL (32-36) 01/13/22 RDW Standard Deviation 45.5 fL (36.4-46.3) 01/13/22 RDW Coefficient of Variation 13.7 % (11.5-14.5) 01/13/22 Plt Count 80 K/uL (130-400) L 01/13/22 MPV 11.1 fL (7.4-10.4) H 01/13/22 ANC 15.98 K/uL (1.4-6.5) H 01/13/22 ALC 0.93 K/uL (1.2-3.4) L 01/13/22 Neutrophils % (Manual) 89.6 % 01/13/22 Lymphocytes % (Manual) 5.2 % 01/13/22 Monocytes % (Manual) 3.5 % 01/13/22 Myelocytes % (Manual) 1.7 % 01/13/22 Neutrophils # (Manual) 15.98 K/uL (1.4-6.5) H 01/13/22 Lymphocytes # (Manual) 0.93 K/uL (1.2-3.4) L 01/13/22 Monocytes # (Manual) 0.62 K/uL (0.11-0.59) H 01/13/22 Myelocytes # (Manual) 0.30 K/uL (0-0) H 01/13/22 Toxic Granulation Occasional 01/13/22 Toxic Vacuolation Occasional 01/13/22 Dohle Bodies 1+ 01/13/22 Na 127 mmol/L (136-145) L 01/13/22 K 3.4 mmol/L (3.5-5.1) L 01/13/22 Cl 96 mmol/L (98-107) L 01/13/22 CO2 21 mmol/L (21-32) 01/13/22 Anion Gap 10 (3-11) 01/13/22 BUN 58 mg/dl (6-23) H 01/13/22 Creatinine 2.52 mg/dl (0.6-1.2) H 01/13/22 Estimated GFR ( Amer) 22.4 ml/min 01/13/22 Estimated GFR (Non-Af Amer) 19.3 ml/min 01/13/22 BUN/Creatinine Ratio 23.0 (10-20) H 01/13/22 Glu 86 mg/dl (70-99(Fasting)) 01/13/22 Ca 6.9 mg/dl (8.5-10.1) L 01/13/22 Phosphorus Level 2.4 mg/dl (2.5-4.9) L 01/13/22 Total Bilirubin 2.0 mg/dl (0.2-1.0) H 01/13/22 Direct Bilirubin 1.4 mg/dl (0-0.2) H 01/13/22 AST 37 U/L (13-39) 01/13/22 ALT 21 U/L (7-52) 01/13/22 Alkaline Phosphatase 84 U/L (34-104) 01/13/22 TP 4.5 gm/dl (6.0-8.3) L 01/13/22 Albumin 2.2 gm/dl (3.4-5.0) L 01/13/22 Mg 2.3 mg/dl (1.7-2.4) 01/13/22 04:14 01/13/22 Calcium Level 6.9 mg/dl (8.5-10.1) L 01/13/22 04:14 01/13/22 Alfredo Test NA 01/13/22 04:13 01/13/22 Microbiology 01/10/22 20:47 Aerobic Blood Culture - Final Blood Escherichia coli Anaerobic Blood Culture - Final Escherichia coli 01/10/22 20:51 Aerobic Blood Culture - Final Blood Escherichia coli Anaerobic Blood Culture - Final Escherichia coli 01/10/22 23:28 Urine Culture - Final Urine,Straight Cath Escherichia coli 01/12/22 05:01 Aerobic Blood Culture - Preliminary Blood No growth in Aerobic bottle after 24 hours. Anaerobic Blood Culture - Preliminary No growth in Anaerobic bottle after 24 hours. 01/12/22 04:51 Aerobic Blood Culture - Preliminary Blood No growth in Aerobic bottle after 24 hours. Anaerobic Blood Culture - Preliminary No growth in Anaerobic bottle after 24 hours. Diagnostic Findings (Past 24 Hours) Chest X-Ray 01/13/22 07:00 XR chest 1V portable HISTORY: 66 years-old Female f/u acute respiratory failure COMPARISON: Chest radiograph 01/12/2022 TECHNIQUE: Portable AP view of the chest FINDINGS: Endotracheal tube overlies the midline, 2.2 cm superior to the montserrat. Left subclavian [id number] catheter is unchanged. Enteric tube courses below the diaphragm. Small pleural effusions with bibasilar consolidation. Pulmonary vascular congestion with interstitial coarsening is unchanged. No pneumothorax. The bones appear grossly intact. IMPRESSION: 1. Lines and tubes as above. 2. Cardiomegaly with unchanged pulmonary edema. 3. Small pleural effusions with persistent bibasilar opacities. ACT 112: Negative or not required by law. The above report was generated using voice recognition software. It may contain grammatical, syntax or spelling errors. Electronically signed by: Abhishek Harry M.D. 01/13/2022 7:03 AM I & O Totals 24 Hours 01/12/22 01/13/22 01/14/22 06:59 06:59 06:59 Intake Total 5709.725 / 5709.725 4018.790 / 4018.790 60 / 60 Output Total 535 / 535 1450 / 1450 275 / 275 Balance 5174.725 / 5174.725 2568.790 / 2568.790 -215 / -215 Cumulative 01/10/22 20:21 thru 01/13/22 09:00 Intake Total 26525.983 Output Total 2560 Balance 71030.983 RT Ventilator Mngmt (Last Documented) Ventilator Ordered Settings Ventilator Support Mode Assist Control 01/13/22 08:00 Respiratory Rate 22 01/13/22 07:15 Ventilator Tidal Volume 315 01/13/22 08:00 Setting Minute Ventilation 6.9 01/13/22 07:15 Positive End Expiratory 5 01/13/22 08:00 Pressure Fraction of Inspired Oxygen 21 01/13/22 08:00 Ventilator - PT Measurements Respiratory Rate 22 Exhaled Tidal Volume 315 Minute Ventilation 6.9 Peak Inspiratory Airway 17 Pressure Plateau Pressure 14 Respiratory Cycle Inspiratory: 1:2.9 Expiratory Ratio Inspiratory Phase Time 0.70 End-Tidal CO2 28 Static Lung Compliance 35.00 Dynamic Lung Compliance 26.25 Normal Static Lung Compliance 47.00 Patient Measurements Comment ABG drawn at this time Coding Level of Care Code Critical Care 1st 30-74 mins Diagnoses Admitted to intensive care unit Z78.9 Severe sepsis A41.9; R65.20 Septic shock A41.9; R65.21 Acute renal failure (ARF) N17.9 Acute renal failure type: unspecified Renal stone N20.0 Urinary tract infection N39.0 Time Spent (min) 40 (1) Acute renal failure (ARF) Acute renal failure type: unspecified Qualified Code(s): N17.9 - Acute kidney failure, unspecified
[2022-01-13] MEDS: cefTRIAXone SODIUM 2,000 MG in DEXTROSE 5% 50 ML IV SCH (10:11)
[2022-01-13] MEDS: PANTOprazole 40 MG in SYRINGE 0 ML IV SCH (10:23)
[2022-01-13] MEDS ORDERED: DEXTROSE 50% 50 ML SYRINGE IV ONE ×2 (10:29)
--- NOTE | 2022-01-13 12:55 | Hospitalist Progress Note ---
Date of Service January 13, 2022 Assessment & Plan (1) Septic shock: Plan: 66yo female with history of hypothyroidism, hyperparathyroidism and depression presenting with 3-4 days of generalized illness, nausea with non-bloody/non-bilious emesis, fevers/chills/rigors as well as abdominal pain and back pain. Patient with septic shock in the ER. 6yo F admitted with severe sepsis, MANDIE, urinalysis concerning for infection and CT scan showing left hydronephrosis and left distal ureteral calculi. - POD #1s/p Cystoscopy, left retrograde pyelogram with radiographic interpretation, left ureteroscopy, left ureteral stent placement, Trinidad catheter placement - Pt intubated in ICU. Sedated. On pressors. #Septic shock swith gram-negative bacilli complicated with encephalopathy, hypotension, acute kidney injury and respiratory failure -E. coli is growing in both blood culture urine culture, de-escalate antibiotic therapy from Zosyn to Rocephin CBC tomorrow -Currently on pressor Levophed 0.16 MCG/KG/M IN stopped vasopressin -Currently sedated with propofol -Currently intubated for respiratory failure on assist-control according to the alumni coordinator notes possible extubation within 1 to 2 days -Secondary to infected kidney stone, status post left ureteral stent placement on 01/11 #Acute kidney injury Improving, creatinine is trending down Currently the creatinine is 2.52, yesterday creatinine was 3.50 Continue IV fluid -Complicated with anion gap metabolic acidosis pH of 7.31 anion gap of 12 BMP tomorrow #Hyponatremia Most likely hypoosmolar hypervolemic hyponatremia Continue IV fluid #History of hypothyroidism Patient was taking Synthroid If patient persistently intubated will meet switch IV Solu-Medrol We discussed with alumni coordinator * (2) Hypothyroidism: Plan: Currently on Synthroid (3) History of hyperparathyroidism: Plan: Follow-up please (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 (5) Renal stone: Plan: Plan as mentioned above Admission and Anticipated Discharge Date Admission Date: January 11, 2022 Subjective No overnight events, was able to wean down vasoactive's significantly Physical Exam Physical Exam: General: Intubated sedated Neck: No lymphadenopathy, supple Respiratory: Lungs are clear to auscultation no chest abnormality Cardiovascular: Regular rate and rhythm no murmur no gallop vegetation Abdomen: Soft bowel sounds active Extremities: No edema no tenderness Skin: No jaundice no rash iate Results & Data Results & Data ([facility]) Vital Signs (Past 12 Hours) Vital Signs Temp Pulse Pulse Resp BP BP BP 01/13/22 11:41 101/42 L 01/13/22 11:26 37.4 C 73 16 97/48 L 01/13/22 11:21 37.4 C 71 17 01/13/22 11:11 37.4 C 72 16 01/13/22 11:04 37.4 C 71 16 01/13/22 11:00 37.3 C 72 17 83/45 L 01/13/22 10:58 95/39 L 01/13/22 10:45 69 16 01/13/22 09:30 37.2 C 66 19 91/47 L 01/13/22 09:00 37.3 C 66 19 90/46 L 01/13/22 08:34 37.4 C 65 22 90/48 L 01/13/22 08:30 37.4 C 67 19 84/37 L 01/13/22 08:00 37.5 C 78 69 19 99/53 L 101/41 L 91/47 L 01/13/22 07:30 37.6 C H 62 19 104/57 L 01/13/22 07:15 60 22 01/13/22 07:00 37.5 C 61 19 101/61 01/13/22 04:11 62 22 01/13/22 02:30 37.5 C 65 12 84/60 L 01/13/22 02:00 37.5 C 65 17 100/57 L 01/13/22 01:55 37.5 C 64 22 105/63 01/13/22 01:30 37.5 C 63 22 106/62 01/13/22 01:00 37.5 C 63 22 103/60 Pulse Ox 01/13/22 11:41 01/13/22 11:26 90 01/13/22 11:21 91 01/13/22 11:11 91 01/13/22 11:04 91 01/13/22 11:00 91 01/13/22 10:58 01/13/22 10:45 96 01/13/22 09:30 96 01/13/22 09:00 98 01/13/22 08:34 95 01/13/22 08:30 95 01/13/22 08:00 99 01/13/22 07:30 94 01/13/22 07:15 93 01/13/22 07:00 92 01/13/22 04:11 95 01/13/22 02:30 94 01/13/22 02:00 95 01/13/22 01:55 95 01/13/22 01:30 94 01/13/22 01:00 95 PG Care Time/CCT Total # of Minutes Spent Total Time Spent with Patient: Total time spent is greater than 50% in coordination of care (as documented) at patient's floor/unit and/or counseling patient: Coding Level of Care Code 77702 Subseq Hosp Care Lvl 2 Diagnoses Septic shock A41.9; R65.21 Hypothyroidism E03.9 History of hyperparathyroidism Z86.39 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
[2022-01-13] MEDS ORDERED: HYDROCORTISONE SOD 100 MG in SYRINGE 0 ML IV STA (16:06)
[2022-01-14] MEDS: NORMOSOL-R 1,000 ML IV SCH (01:19)
[2022-01-14] MEDS ORDERED: PROPOFOL BOLUS FROM BAG IV PRN (04:51)
[2022-01-14] MEDS ORDERED: STAT IV Infusion **Titration per Protocol STA (04:51)
[2022-01-14] MEDS ORDERED: propofoL 1,000 MG/100 ML VIAL IV SCH (05:00)
[2022-01-14 05:10] LABS: iSTAT Art Bld Gas pCO2 Correct 39 mmHg (35-46); iSTAT Art Bld Gas pH Corrected 7.407 (7.35-7.45); iSTAT Arterial Blood Gas HCO3 24 meg/L (19-24); iSTAT Arterial Blood Gas pCO2 40 mmHg (35-46); iSTAT Arterial Blood Gas pO2 74 mmHg (80-95); iSTAT Arterial Blood Gas pO2 C 71; iSTAT Carbon Dioxide 26 mmol/L (24-31); iSTAT FiO2 21 %; iSTAT Hematocrit 24 % (37-47); iSTAT Hemoglobin 8.2 g/dl (12.0-16.0); iSTAT Potassium 3.8 mmol/L (3.3-5.0); iSTAT Site Art Line; iSTAT Sodium 136 mmol/L (135-144)
[2022-01-14] MEDS: LEVOTHYROXINE SODIUM 50 MCG TABLET PO SCH (05:23)
[2022-01-14 05:25] LABS: Hematocrit (blood only) 26.2 % (37-47); Hemoglobin 9.2 g/dL (12.0-16.0); Mean Corpuscular Hemoglobin 31.3 pg (25-34); Mean Corpuscular Hgb Conc 35.1 g/dL (32-36); Mean Corpuscular Volume 89.1 fL (80-100); Mean Platelet Volume 10.4 fL (7.4-10.4); Platelet Count 102 K/uL (130-400); RDW Standard Deviation 46.5 fL (36.4-46.3); Red Blood Count 2.94 M/uL (4.2-5.4); White Blood Count 22.22 K/uL (4.8-10.8)
[2022-01-14 05:54] LABS: BUN Creatinine Ratio 27.5 (10-20); Calcium 7.4 mg/dl (8.5-10.1); Est GFR (African American) 36.8 ml/min; Est GFR (Non-African American) 31.8 ml/min; Magnesium 2.3 mg/dl (1.7-2.4); Potassium 3.9 mmol/L (3.5-5.1)
[2022-01-14 06:07] LABS: ANC (manual) 21.44 K/uL (1.4-6.5); Metamyelocytes # (manual) 0.58 K/uL (0-0); Metamyelocytes % (manual) 2.6 %; Monocytes % (manual) 0.9 %; Neutrophils # (manual) 21.44 K/uL (1.4-6.5); Neutrophils % (manual) 96.5 %; RBC Morphology Unremarkable
[2022-01-14] MEDS: VASOPRESSIN 20 UNITS in 0.9 % SODIUM CHLORIDE 100 ML IV SCH ×3 (07:20→07:22)
--- NOTE | 2022-01-14 08:29 | Critical Care Progress Note ---
Date of Service January 14, 2022 Assessment & Plan (1) Admitted to intensive care unit: Plan: Reason Critically Ill: 66-year-old female with severe sepsis with septic shock secondary to urinary tract source requiring close hemodynamic monitoring, vasopressor support, s/p L ureteral stent placement NEURO - * CAM ICU: NEGATIVE * Minimize the use of sedatives once extubated. * Pain control per primary team CARDIAC/VASCULAR - * Hypotension resolving. Likely related to sedation. RESPIRATORY - Acute respiratory insufficiency secondary to septic shock. Past spontaneous breathing trial. Extubated. GI/NUTRITION - * Speech evaluation prior to starting diet RENAL/LYTES - * Acute renal failure: Likely secondary to ischemic ATN. Improving significantly - * Infected ureteral stone * S/p OR- L ureteral stent placed 01/11 * De-escalate to ceftriaxone Day 4 effective therapy * Pansensitive E. coli ENDO - * No h/o DM * BSGs per unit protocol. ISS --> gtt per unit policy. * Hypothyroidism: * Continue home Rx when able. HEME - * Anemia: Stable * Thrombocytopenia: * Likely secondary to bone marrow suppression. Improving ID - * Severe Sepsis with Septic Shock: * E. coli bacteremia secondary to urinary source * Lactate 3.1 to 1.7 * Continue Rocephin. LINES/IV ACCESS - * PIVs x3 * Trinidad * LEFT Radial Arterial line * LEFT central line DVT PROPHYLAXIS - * Heparin 5000u BID CRITICAL CARE TIME - I have personally spent 33 minutes of critical care time in the direct ma nagement of this patient. This is a life/limb threatening event. This includes time spent evaluating patient, direct bedside care, chart review, placing orders, interpretation of diagnostic studies, discussion with consultants, patient, and family members, as well as other required patient management activities. This time is exclusive of all separately billable procedures, and teaching time and separate from and in addition to any other critical care service time. Likely downgrade from ICU status today. (2) Severe sepsis: (3) Septic shock: (4) Acute renal failure (ARF): (5) Renal stone: (6) Urinary tract infection: Admission and Anticipated Discharge Date Admission Date: January 11, 2022 Subjective Patient seen and examined. Placed on spontaneous awakening trial and did quite well. Then she was placed on a spontaneous breathing trial and ultimately did well. She will be extubated. Tolerated tube feeds well overnight. Hemodynamically improving and off vasoactive medications at this time. Review of Systems Review of Systems: All systems reviewed & are unremarkable except as noted in HPI & below Physical Exam Physical Exam: General: Sedated. nontoxic. Skin: Warm, dry, Head: Atraumatic Ears, nose, mouth and throat: Airway obscured by endotracheal tube Cardiovascular: Normal peripheral perfusion Respiratory: Ventilator settings reviewed. Clear to auscultation bilaterally. Gastrointestinal: Non distended Musculoskeletal: No deformity Results & Data Results & Data ([facility]) Vital Signs (Past 12 Hours) Vital Signs Temp Pulse Resp BP Pulse Ox 01/14/22 07:10 61 16 94 01/14/22 05:00 59 L 16 93 01/14/22 04:30 36.5 C 59 L 16 113/60 93 01/14/22 04:00 36.5 C 60 16 114/60 93 01/14/22 03:30 36.6 C 61 16 114/61 93 01/14/22 03:00 36.6 C 61 16 115/59 L 93 01/14/22 02:30 36.6 C 60 16 112/60 93 01/14/22 02:00 36.6 C 62 16 118/61 93 01/14/22 01:30 36.7 C 64 16 115/61 93 01/14/22 01:00 36.7 C 63 16 115/60 93 01/14/22 00:49 63 01/14/22 00:30 36.7 C 63 16 111/61 93 01/14/22 00:00 36.7 C 63 16 117/64 93 01/13/22 23:30 36.7 C 63 16 113/61 93 01/13/22 23:00 36.7 C 62 16 116/63 93 01/13/22 22:30 36.7 C 63 16 113/62 93 01/13/22 22:00 36.8 C 63 16 109/57 L 92 01/13/22 21:50 36.8 C 62 16 95/52 L 92 01/13/22 21:30 36.9 C 67 16 119/62 91 01/13/22 21:00 37.0 C 68 16 107/64 92 01/13/22 20:30 37.0 C 75 14 111/63 90 Coding Level of Care Code Critical Care 1st 30-74 mins Diagnoses Admitted to intensive care unit Z78.9 Severe sepsis A41.9; R65.20 Septic shock A41.9; R65.21 Acute renal failure (ARF) N17.9 Acute renal failure type: unspecified Renal stone N20.0 Urinary tract infection N39.0 Time Spent (min) 33 (1) Acute renal failure (ARF) Acute renal failure type: unspecified Qualified Code(s): N17.9 - Acute kidney failure, unspecified
[2022-01-14] MEDS: HEPARIN SOD 5,000 UNIT/0.5 ML VIAL SQ SCH (08:31)
[2022-01-14] MEDS: PARoxetine HCL 10 MG TAB PO SCH (08:31)
--- NOTE | 2022-01-14 10:21 | Urology Progress Note ---
Date of Service January 14, 2022 Assessment & Plan (1) Septic shock: Plan: 66yo F admitted with septic shock secondary to UTI and obstructing stone - POD #3 s/p Cystoscopy, left retrograde pyelogram with radiographic interpretation, left ureteroscopy, left ureteral stent placement, Trinidad catheter placement - Remains in ICU, extubated this morning. - Afebrile, Labs reviewed - Wbc 22.22, Creatinine 1.67 - UCx with E.coli; Blood cultures with E.coli, repeat prelim NGTD - Continues on IV Ceftriaxone. - Continue supportive care and antibiotic therapy. - Maintain Trinidad catheter. - Urology will follow peripherally, please contact us with any further questions or concerns. - Will arrange outpatient follow-up for stone treatment after acute issues have resolved and infection has cleared. Admission and Anticipated Discharge Date Admission Date: January 11, 2022 Subjective Pt examined at bedside this AM. Extubated. Awake. Answering some yes/no questions. On Aerosol mask. Trinidad catheter intact, draining clear yellow urine. Denied any pain. Review of Systems Constitutional: as per Subjective / HPI Genitourinary: as per Subjective / HPI Physical Exam Constitutional: no acute distress Respiratory: On Aerosol mask Skin: Warm and dry. Neurologic: awake Psychiatric: Answered some yes/no questions Genitourinary: Trinidad catheter intact Results & Data ([facility]) Vital Signs (Past 12 Hours) Vital Signs Temp Pulse Resp BP Pulse Ox 01/14/22 09:16 57 L 01/14/22 09:00 36.8 C 77 14 125/58 L 97 01/14/22 08:42 83 16 96 01/14/22 08:30 36.7 C 82 15 128/60 96 01/14/22 08:00 36.6 C 84 9 L 131/69 97 01/14/22 07:30 36.6 C 58 L 14 95 01/14/22 07:10 61 16 94 01/14/22 07:00 36.5 C 61 14 107/58 L 94 01/14/22 05:00 59 L 16 93 01/14/22 04:30 36.5 C 59 L 16 113/60 93 01/14/22 04:00 36.5 C 60 16 114/60 93 01/14/22 03:30 36.6 C 61 16 114/61 93 05/09/22 03:00 36.6 C 61 16 115/59 L 93 01/14/22 02:30 36.6 C 60 16 112/60 93 01/14/22 02:00 36.6 C 62 16 118/61 93 01/14/22 01:30 36.7 C 64 16 115/61 93 01/14/22 01:00 36.7 C 63 16 115/60 93 01/14/22 00:49 63 01/14/22 00:30 36.7 C 63 16 111/61 93 01/14/22 00:00 36.7 C 63 16 117/64 93 01/13/22 23:30 36.7 C 63 16 113/61 93 01/13/22 23:00 36.7 C 62 16 116/63 93 01/13/22 22:30 36.7 C 63 16 113/62 93 PG Care Time/CCT Total # of Minutes Spent Total Time Spent with Patient: Total time spent is greater than 50% in coordination of care (as documented) at patient's floor/unit and/or counseling patient: Coding Level of Care Code 40034 Subseq Hosp Care Lvl 2 Diagnoses Septic shock A41.9; R65.21
[2022-01-14] MEDS: cefTRIAXone SODIUM 2,000 MG in DEXTROSE 5% 50 ML IV SCH (10:40)
[2022-01-14] MEDS: PANTOprazole 40 MG in SYRINGE 0 ML IV SCH (10:40)
[2022-01-14] MEDS ORDERED: NYSTATIN 500,000 UNIT TAB PO SCH (13:00)
--- NOTE | 2022-01-14 13:15 | Hospitalist Progress Note ---
Date of Service January 14, 2022 Assessment & Plan (1) Septic shock: Plan: 66yo female with history of hypothyroidism, hyperparathyroidism and depression presenting with 3-4 days of generalized illness, nausea with non-bloody/non-bilious emesis, fevers/chills/rigors as well as abdominal pain and back pain. Patient with septic shock in the ER. 6yo F admitted with severe sepsis, MANDIE, urinalysis concerning for infection and CT scan showing left hydronephrosis and left distal ureteral calculi. -- POD #3 s/p Cystoscopy, left retrograde pyelogram with radiographic interpretation, left ureteroscopy, left ureteral stent placement, Trinidad catheter placement -, extubated this morning. -Discussed with steam and gas turbines assembler downgrade the patient to PCU - UCx with E.coli; Blood cultures with E.coli, repeat prelim NGTD - Continues on IV Ceftriaxone. -Of the parasternal #Septic shock due to obstructive kidney stone and sepsis with E. coli complicated with encephalopathy, hypotension, acute kidney injury and respiratory failure -Secondary to E. 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 Extubated. Awake. Answer simple questions Physical Exam Physical Exam: General: Awake Neck: No lymphadenopathy, supple Respiratory: Lungs are clear to auscultation no chest abnormality Cardiovascular: Regular rate and rhythm no murmur no gallop vegetation Abdomen: Soft bowel sounds active Extremities: No edema no tenderness Skin: No jaundice no rash iate Results & Data Results & Data ([facility]) Vital Signs (Past 12 Hours) Vital Signs Temp Pulse Resp BP Pulse Ox 01/14/22 09:16 57 L 01/14/22 09:00 36.8 C 77 14 125/58 L 97 01/14/22 08:42 83 16 96 01/14/22 08:30 36.7 C 82 15 128/60 96 01/14/22 08:00 36.6 C 84 9 L 131/69 97 01/14/22 07:30 36.6 C 58 L 14 95 01/14/22 07:10 61 16 94 01/14/22 07:00 36.5 C 61 14 107/58 L 94 01/14/22 05:00 59 L 16 93 01/14/22 04:30 36.5 C 59 L 16 113/60 93 01/14/22 04:00 36.5 C 60 16 114/60 93 01/14/22 03:30 36.6 C 61 16 114/61 93 01/14/22 03:00 36.6 C 61 16 115/59 L 93 01/14/22 02:30 36.6 C 60 16 112/60 93 01/14/22 02:00 36.6 C 62 16 118/61 93 01/14/22 01:30 36.7 C 64 16 115/61 93 PG Care Time/CCT Total # of Minutes Spent Total Time Spent with Patient: Total time spent is greater than 50% in coordination of care (as documented) at patient's floor/unit and/or counseling patient: Coding Level of Care Code 83781 Subseq Hosp Care Lvl 3 Diagnoses Septic shock A41.9; R65.21 Hypothyroidism E03.9 History of hyperparathyroidism Z86.39 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
[2022-01-14] MEDS: NYSTATIN SUSP 500,000 U/5 ML UDC MT SCH ×2 (16:41→22:02)
[2022-01-15] MEDS ORDERED: MELATONIN 3 MG TAB PO ONE (00:28)
[2022-01-15] MEDS: NOREPINEPHRINE/D5W 8 MG/508 ML BAG IV SCH (01:30)
[2022-01-15] MEDS: LEVOTHYROXINE SODIUM 75 MCG TABLET PO SCH (05:36)
[2022-01-15 07:05] LABS: Mean Corpuscular Hgb Conc 34.6 g/dL (32-36); Mean Platelet Volume 10.4 fL (7.4-10.4); Platelet Count 128 K/uL (130-400)
[2022-01-15 07:25] LABS: ANC (manual) 21.01 K/uL (1.4-6.5); Hemoglobin 9.7 g/dL (12.0-16.0); Mean Corpuscular Hemoglobin 32.1 pg (25-34); Mean Corpuscular Volume 92.7 fL (80-100); Metamyelocytes % (manual) 3.4 %; Monocytes # (manual) 1.02 K/uL (0.11-0.59); Monocytes % (manual) 4.3 %; Myelocytes % (manual) 3.4 %; Neutrophils # (manual) 21.01 K/uL (1.4-6.5); Neutrophils % (manual) 88.9 %; RDW Coefficient of Variation 14.1 % (11.5-14.5); RDW Standard Deviation 47.7 fL (36.4-46.3); Red Blood Count 3.02 M/uL (4.2-5.4); White Blood Count 23.63 K/uL (4.8-10.8)
[2022-01-15 07:42] LABS: BUN Creatinine Ratio 32.5 (10-20); Creatinine Clr Calc Pharmacy 40.7 ml/min; Est GFR (African American) 58.4 ml/min; Est GFR (Non-African American) 50.4 ml/min; Potassium 3.4 mmol/L (3.5-5.1)
[2022-01-15 08:34] LABS: Appearance Urine Cloudy (Clear); Bacteria Urine Automated Negative (Negative); Bilirubin Urine Negative (Negative); Blood Urine 3+ (Negative); Color Urine Yellow; Glucose Urine UA Negative (Negative); Ketones Urine Negative (Negative); Leukocyte Esterase Urine 3+ (Negative); Nitrite Urine Negative (Negative); Protein Urine Negative (Negative); Urobilinogen Urine Negative (Negative); WBC Urine Automated >30 /hpf (0-5)
[2022-01-15] MEDS: cefTRIAXone SODIUM 2,000 MG in DEXTROSE 5% 50 ML IV SCH (08:50)
[2022-01-15] MEDS: CALCITRIOL 0.25 MCG CAPSULE PO SCH (08:51)
[2022-01-15] MEDS: PARoxetine HCL 10 MG TAB PO SCH (08:51)
[2022-01-15] MEDS: NYSTATIN SUSP 500,000 U/5 ML UDC MT SCH ×4 (08:51→20:50)
[2022-01-15] MEDS: ENOXAPARIN INJ 40 MG/0.4 ML SYR SQ SCH (08:51)
[2022-01-15] MEDS ORDERED: OPTIRAY 320 100ml IV ONE (12:33)
--- NOTE | 2022-01-15 15:43 | CT Scan Report ---
ABDOMEN AND PELVIS CT WITH IV CONTRAST CT DOSE: 313.35 mGy.cm HISTORY: persistent leukocytosis rule out abscess TECHNIQUE: Multiaxial CT images of the abdomen and pelvis were performed following the use of intrave nous contrast. A dose lowering technique was utilized adhering to the principles of ALARA. COMPARISON STUDY: Abdomen and pelvis CT 01/10/2022. FINDINGS: Interval development of small bilateral pleural effusions. The heart is mildly enlarged. Co nsolidation within the lower lobes posteriorly favors compressive atelectasis from the pleural effusi ons. A pneumonia could also have a similar appearance. No pneumoperitoneum. No pneumatosis. Punctate focus of subcutaneous gas within the left lower quadrant abdominal wall. This may be due to prior med ication injection. Moderate to severe body wall edema. Small amount of ascites identified. The liver, gallbladder, spleen, adrenal glands, and pancreas unremarkable. No retroperitoneal lymphadenopathy. Normal caliber abdominal aorta. Normal right kidney. Interval placement of a left ureteral stent whic h is in good position. There are punctate stones remaining within the distal left ureter. These have slightly decreased in number compared the prior study. The bladder is decompressed by a Trinidad cathete r. Multiple punctate stones within the left kidney again noted. Mild urothelial thickening within the left renal collecting system and left ureter may be due to the recent stent placement. Multiple left renal calculi are again noted. Dilated and likely chronically obstructed upper pole calyx containing multiple calculi remains unchanged. This measures approximately 2.3 cm and is consistent with a jo ceal diverticulum. Questionable thickened loops of jejunum is likely due to the patient's diffuse davide matous state. No evidence for bowel obstruction. Normal appendix. No loculated fluid collections to s uggest an abscess. Questionable thickening of the splenic flexure of the colon and descending colon i s likely due to underdistention. IMPRESSION: 1. Interval development of small bilateral pleural effusions and a small amount of ascites. There is also moderate to severe body wall edema. 2. Interval placement left ureteral stent which appears to be in good position. There is been decompr ession of the left renal collecting system compared to the prior study. A few punctate distal left ur eteral calculi are again noted. These have slightly decreased in number compared the prior study. 3. Left-sided nephrolithiasis as described above. 4. Focal areas of consolidation within the lower lobes posteriorly favor atelectasis from the pleural effusions. A pneumonia could also a similar appearance in the appropriate clinical setting. 5. A small areas of thickening within the jejunal loops and distal colon is likely due to a combinati on of the patient's diffuse edematous state and underdistention. A low-grade enterocolitis is conside red less likely but not entirely excluded. 6. No loculated fluid collections to suggest an abscess. ACT 112: Negative or not required by law. Electronically signed by: Roberto Poon M.D. 01/15/2022 3:42 PM
[2022-01-15] MEDS ORDERED: PIPERACILL/TAZOBAC CONSULT ACTIVE PRN (16:16)
[2022-01-15] MEDS ORDERED: PIPERACILLIN/TAZOBACTAM 3.375 GM in DEXTROSE 5% 100 ML IV STA (16:19)
[2022-01-15] MEDS: AZITHROMYCIN 250 MG TAB PO SCH (16:34)
[2022-01-15] MEDS: FUROSEMIDE 40 MG/4 ML VIAL IV SCH (16:37)
--- NOTE | 2022-01-15 17:59 | Hospitalist Progress Note ---
Date of Service January 15, 2022 Assessment & Plan (1) Septic shock: Plan: #Septic shock due to obstructive kidney stone and sepsis with E. coli complicated with encephalopathy, hypotension, acute kidney injury and respiratory failure required intubation and ICU admission 66yo female with history of hypothyroidism, hyperparathyroidism and depression presenting with 3-4 days of generalized illness, nausea with non-bloody/non-bilious emesis, fevers/chills/rigors as well as abdominal pain and back pain. Patient with septic shock in the ER. 6yo F admitted with severe sepsis, MANDIE, urinalysis concerning for infection and CT scan showing left hydronephrosis and left distal ureteral calculi. Required intubation admission twice --s/p Cystoscopy, left retrograde pyelogram with radiographic interpretation, left ureteroscopy, left ureteral stent placement, Trinidad catheter placement -, extubated on 01/14 - UCx with E.coli; Blood cultures with E.coli, repeat prelim NGTD -Patient has persistent leukocytosis otherwise secondary trending up jolly -Follow-up CT of abdomen with IV contrast showed anasarca with possible evidence of pneumonia (2) Renal stone: Plan: Plan as mentioned above Follow-up patient with urology (3) Leukocytosis: Plan: The patient has persistent leukocytosis and actually white cell count is trending up for today CT of abdomen showed anasarca however there was no evidence of abscess, stent in the right place, patient multiple kidney stones, patient chronic hydronephrosis on the left side, evidence of pneumonia on the CAT scan I changed Rocephin to Zithromax and Zosyn for possible aspiration pneumonitis (4) Hyponatremia: Plan: Resolved with IV fluid (5) MANDIE (acute kidney injury): Plan: Resolved Discontinue indwelling Trinidad catheter (6) Anasarca: Plan: Possibly secondary to hypoalbuminemia Were initiated patient on Ensure and asked dietitian for nutritional assessment Started on Lasix 40 mg twice daily (7) Hypothyroidism: Plan: Currently on Synthroid (8) History of hyperparathyroidism: Plan: Follow-up please (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 Extubated. Awake. Answer simple questions Physical Exam Physical Exam: General: Awake Neck: No lymphadenopathy, supple Respiratory: Lungs are clear to auscultation no chest abnormality Cardiovascular: Regular rate and rhythm no murmur no gallop vegetation Abdomen: Soft bowel sounds active Extremities: No edema no tenderness Skin: No jaundice no rash iate Results & Data Results & Data ([facility]) Vital Signs (Past 12 Hours) Vital Signs Temp Pulse Pulse Resp BP Pulse Ox 01/15/22 15:13 72 01/15/22 11:51 36.8 C 75 16 111/65 97 01/15/22 07:19 74 01/15/22 06:37 37.0 C 76 20 120/66 94 PG Care Time/CCT Total # of Minutes Spent Total Time Spent with Patient: Total time spent is greater than 50% in coordination of care (as documented) at patient's floor/unit and/or counseling patient: Coding Level of Care Code 82781 Subseq Hosp Care Lvl 3 Diagnoses Septic shock A41.9; R65.21 Hypothyroidism E03.9 History of hyperparathyroidism Z86.39 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 Hyponatremia E87.1 MANDIE (acute kidney injury) N17.9 Leukocytosis D72.829 Anasarca R60.1
[2022-01-15] MEDS: PIPERACILLIN/TAZOBACTAM 3.375 GM in DEXTROSE 5% 100 ML IV SCH (20:50)
[2022-01-16] MEDS: PIPERACILLIN/TAZOBACTAM 3.375 GM in DEXTROSE 5% 100 ML IV SCH ×3 (05:31→21:05)
[2022-01-16] MEDS: LEVOTHYROXINE SODIUM 50 MCG TABLET PO SCH (05:31)
[2022-01-16 06:40] LABS: Hemoglobin 8.9 g/dL (12.0-16.0); Mean Corpuscular Hemoglobin 31.6 pg (25-34); Mean Corpuscular Hgb Conc 34.2 g/dL (32-36); Mean Corpuscular Volume 92.2 fL (80-100); Mean Platelet Volume 10.2 fL (7.4-10.4); Platelet Count 196 K/uL (130-400); RDW Coefficient of Variation 13.9 % (11.5-14.5); Red Blood Count 2.82 M/uL (4.2-5.4); White Blood Count 18.52 K/uL (4.8-10.8)
[2022-01-16 06:58] LABS: ALC (manual) 0.31 K/uL (1.2-3.4); ANC (manual) 15.95 K/uL (1.4-6.5); Eosinophils # (manual) 0.17 K/uL (0-0.5); Eosinophils % (manual) 0.9 %; Lymphocytes # (manual) 0.31 K/uL (1.2-3.4); Lymphocytes % (manual) 1.7 %; Metamyelocytes % (manual) 4.3 %; Monocytes # (manual) 0.65 K/uL (0.11-0.59); Monocytes % (manual) 3.5 %; Myelocytes # (manual) 0.65 K/uL (0-0); Myelocytes % (manual) 3.5 %; Neutrophils # (manual) 15.95 K/uL (1.4-6.5); Neutrophils % (manual) 86.1 %; RBC Morphology Unremarkable
[2022-01-16 07:07] LABS: BUN Creatinine Ratio 27.3 (10-20); Calcium 7.7 mg/dl (8.5-10.1); Est GFR (African American) 79.9 ml/min; Est GFR (Non-African American) 68.9 ml/min; Potassium 3.1 mmol/L (3.5-5.1)
[2022-01-16] MEDS: NYSTATIN SUSP 500,000 U/5 ML UDC MT SCH ×4 (07:44→20:41)
[2022-01-16] MEDS: AZITHROMYCIN 250 MG TAB PO SCH (07:44)
[2022-01-16] MEDS: CALCITRIOL 0.25 MCG CAPSULE PO SCH (07:45)
[2022-01-16] MEDS: ENOXAPARIN INJ 40 MG/0.4 ML SYR SQ SCH (07:45)
[2022-01-16] MEDS: PARoxetine HCL 10 MG TAB PO SCH (07:45)
[2022-01-16] MEDS: FUROSEMIDE 40 MG/4 ML VIAL IV SCH ×2 (07:45→17:24)
[2022-01-16 14:11] LABS: D Dimer 5920 ug/L FEU (0-500)
--- NOTE | 2022-01-16 17:21 | Ultrasound Report ---
BILATERAL LOWER EXTREMITY VENOUS DOPPLER HISTORY: Acute pain and swelling of the lower legs dvt COMPARISON STUDY: None. FINDINGS: There is normal compressibility, flow, and augmentation within the bilateral lower extremit y deep venous systems. Nonspecific subcutaneous edema. IMPRESSION: No DVT within the right or left lower extremity. ACT 112: Negative or not required by law. Electronically signed by: Abhishek Harry M.D. 01/16/2022 5:19 PM
--- NOTE | 2022-01-16 18:28 | Hospitalist Progress Note ---
Date of Service January 16, 2022 Assessment & Plan (1) Septic shock: Plan: #Septic shock due to obstructive kidney stone and sepsis with E. coli complicated with encephalopathy, hypotension, acute kidney injury and respiratory failure required intubation and ICU admission 66yo female with history of hypothyroidism, hyperparathyroidism and depression presenting with 3-4 days of generalized illness, nausea with non-bloody/non-bilious emesis, fevers/chills/rigors as well as abdominal pain and back pain. Patient with septic shock in the ER. 6yo F admitted with severe sepsis, MANDIE, urinalysis concerning for infection and CT scan showing left hydronephrosis and left distal ureteral calculi. Required intubation admission twice --s/p Cystoscopy, left retrograde pyelogram with radiographic interpretation, left ureteroscopy, left ureteral stent placement, Trinidad catheter placement -, extubated on 01/14 - UCx with E.coli; Blood cultures with E.coli, repeat prelim NGTD -Patient has persistent leukocytosis otherwise secondary trending up jolly -Follow-up CT of abdomen with IV contrast showed anasarca with possible evidence of pneumonia -E. coli is sensitive to Rocephin however after de-escalate of antibiotic treatment to Rocephin patient white cell count started trending up, given the CT of abdomen finding possibly patient suffering from aspiration pneumonia, on 01/15 the patient is started on Zosyn and Zithromax and now white cell count is trending down (2) Aspiration pneumonia: Plan: Possibly secondary to intubation and sepsis Currently on Zosyn and Zithromax Add probiotic White cell count is trending down CT of abdomen showed evidence of pneumonia Antibiotic treatment can be de-escalated within next couple of days (3) Renal stone: Plan: Plan as mentioned above Follow-up patient with urology (4) Anasarca: Plan: Possibly secondary to hypoalbuminemia as well as fluid resuscitation during ICU admission Nutrition consult for hypoalbuminemia, poor oral intake, and food supplements including Ensure Started on Lasix 40 mg twice daily on 5) MANDIE (acute kidney injury): Plan: Resolved Discontinue indwelling Trinidad catheter (6) Lower extremity edema: Plan: With elevated D-dimer, no evidence of DVT on Doppler studies Possibly fluid overload Continue Lasix, leg elevation (7) Leukocytosis: Plan: The patient has persistent leukocytosis and actually white cell count is trending up for today CT of abdomen showed anasarca however there was no evidence of abscess, stent in the right place, patient multiple kidney stones, patient chronic hydronephrosis on the left side, evidence of pneumonia on the CAT scan I changed Rocephin to Zithromax and Zosyn for possible aspiration pneumonitis (8) Hypokalemia: Plan: Replaced (9) Hyponatremia: Plan: Resolved with IV fluid (10) Hypothyroidism: Plan: Currently on Synthroid (11) History of hyperparathyroidism: Plan: Follow-up please (12) Endogenous depression: Plan: Resume home meds when patient is medically Admission and Anticipated Discharge Date Admission Date: January 11, 2022 Subjective Feels better complaining of lower extremity edema Review of Systems Review of Systems: General: No malaise no weakness Neck: No tenderness no pain HEENT: No eye discharge no ear discharge Chest: No chest pain, no palpitation GI: Not distended, no nausea no vomiting Extremities: No edema no tenderness Neurology: No headache no weakness Psychiatric: No depression no anxiety Physical Exam Physical Exam: General: Awake Neck: No lymphadenopathy, supple Respiratory: Lungs are clear to auscultation no chest abnormality Cardiovascular: Regular rate and rhythm no murmur no gallop vegetation Abdomen: Soft bowel sounds active Extremities: No edema no tenderness Skin: No jaundice no rash iate Results & Data Results & Data ([facility]) Vital Signs (Past 12 Hours) Vital Signs Temp Pulse Pulse Resp BP BP Pulse Ox 01/16/22 14:29 36.7 C 73 20 124/67 91 01/16/22 11:13 36.8 C 77 16 112/61 94 01/16/22 07:36 37.0 C 72 18 136/67 95 01/16/22 07:12 69 PG Care Time/CCT Total # of Minutes Spent Total Time Spent with Patient: Total time spent is greater than 50% in coordination of care (as documented) at patient's floor/unit and/or counseling patient: Coding Level of Care Code 48644 Subseq Hosp Care Lvl 3 Diagnoses Septic shock A41.9; R65.21 Renal stone N20.0 Leukocytosis D72.829 Hyponatremia E87.1 MANDIE (acute kidney injury) N17.9 Anasarca R60.1 Hypothyroidism E03.9 History of hyperparathyroidism Z86.39 Endogenous depression F33.2 Lower extremity edema R60.0 Hypokalemia E87.6 Aspiration pneumonia J69.0
[2022-01-16] MEDS: POTASSIUM CHLORIDE CRTAB 20 MEQ TABCR PO SCH (20:41)
[2022-01-16] MEDS: MELATONIN 3 MG TAB PO PRN (23:12)
[2022-01-17] MEDS: PIPERACILLIN/TAZOBACTAM 3.375 GM in DEXTROSE 5% 100 ML IV SCH ×3 (05:37→20:08)
[2022-01-17] MEDS: LEVOTHYROXINE SODIUM 75 MCG TABLET PO SCH (05:37)
[2022-01-17 08:49] LABS: BUN Creatinine Ratio 21.8 (10-20); Calcium 7.5 mg/dl (8.5-10.1); Creatinine Clr Calc Pharmacy 59.5 ml/min; Est GFR (African American) 92.5 ml/min; Est GFR (Non-African American) 79.8 ml/min; Potassium 2.8 mmol/L (3.5-5.1)
[2022-01-17] MEDS: PARoxetine HCL 10 MG TAB PO SCH (10:09)
[2022-01-17] MEDS: AZITHROMYCIN 250 MG TAB PO SCH (10:09)
[2022-01-17] MEDS: CALCITRIOL 0.25 MCG CAPSULE PO SCH (10:09)
[2022-01-17] MEDS: POTASSIUM CHLORIDE CRTAB 20 MEQ TABCR PO SCH ×2 (10:09→18:13)
[2022-01-17] MEDS: LACTOBACILLUS ACIDOPHILUS 1 GM PACK PO SCH ×3 (10:10→18:13)
[2022-01-17] MEDS: FUROSEMIDE 40 MG/4 ML VIAL IV SCH (10:15)
[2022-01-17] MEDS: ENOXAPARIN INJ 40 MG/0.4 ML SYR SQ SCH (10:15)
[2022-01-17] MEDS: NYSTATIN SUSP 500,000 U/5 ML UDC MT SCH ×4 (10:16→20:08)
[2022-01-17] MEDS: MAGNESIUM SULFATE / D5W 1 GM/100 ML BAG IV SCH ×2 (10:38→14:49)
[2022-01-17] MEDS: POTASSIUM CHLORIDE / WTR 10 MEQ/100 ML PLCT IV SCH (10:39)
--- NOTE | 2022-01-17 15:05 | Hospitalist Progress Note ---
Date of Service January 17, 2022 Assessment & Plan (1) Septic shock: Plan: 2nd obstructing left-sided kidney stones and E.coli UTI. Resolved. s/p Cystoscopy, left retrograde pyelogram with radiographic interpretation, left ureteroscopy, left ureteral stent placement. 01/10/22 blood cultures and urine culture with pansensitive e.coli. 01/12/22 repeat blood cultures negative to date. Was narrowed to rocephin IV, then changed to zosyn on 01/15/22 due to concern of aspiration pneumonia. Procal continues to trend down. Patient continues to clinically improve. Consider changing to PO levaquin on 01/18/22 to cover the blood/urine/lungs. Will need at least 14 days of antibiotic therapy to cover the septicemia. (2) Aspiration pneumonia: Plan: Suspected. Currently on Zosyn and Zithromax, day #3 of both. Consider changing to levaquin tomorrow - oral would be acceptable. Levaquin will cover blood/urine and the lungs. (3) E. coli UTI: Plan: in the setting of obstructing kidney stones on left. see above/below. continue IV antibiotics. (4) Renal stone: Plan: Multiple left-sided obstructing kidney stones s/p stent placement hospital day #1. Definitive stone treatment post-discharge. (5) Anasarca: Plan: Most recent albumin 2.2. TSH earlier this stay wnl. s/p copious IV fluids early in the stay due to #1. Continue IV lasix diuresis but change to 20mg BID. Dopplers of legs negative for DVT. (6) MANDIE (acute kidney injury): Plan: Resolved Sepsis-associated ATN Peak Cr 5.2 now <1 (7) Lower extremity edema: Plan: New during the stay. LE venous duplex studies negative for DVT. Cont lasix. (8) Hypokalemia: Plan: 2nd to diuresis. Post-ATN diuretic phase also likely contributing. Give IV + PO replacement; repeat K level later today. Replace low mag. (9) Hyponatremia: Plan: resolved. Lowest Na level 124. (10) Hypothyroidism: Plan: Continue synthroid. TSH several days ago wnl. (11) History of hyperparathyroidism: Plan: Calcium levels have been normal or low. Intact PTH 08/2021 was normal. No evidence of hyperparathyroidism at this time. 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 (13) Hypomagnesemia: Plan: severe. 2nd to lasix. replace with IV magnesium. repeat level later today. (14) Anemia: Plan: patient was anemic at time of presentation with Hb of 10.6. check B12, folate, and Fe studies. cbc in am. (15) DVT prophylaxis: Plan: lovenox 40mg daily Plan: insomnia - chronic issue; no response to melatonin try trazodone tonight or similar family updated at bedside PT, OT evals completed - january need rehab vs d/c home with HH Admission and Anticipated Discharge Date Admission Date: January 11, 2022 Subjective patient had mild orthopnea overnight also with mild dyspnea mild cough LE edema improved but ongoing no abd pain eating fair no nausea asks about when she might be able to go home no urinary symptoms tele overnight - NSR family at bedside during the visit Review of Systems Review of Systems: gen - no fevers or chills; drinking fluids, appetite fair at best however cv - no chest pain; +edema pulm - no sputum GI - no diarrhea, nausea or emesis Physical Exam Physical Exam: gen - NAD, pleasant, nontoxic neck - mild JVD mouth - MMM heart - RRR, s1 s2 lungs - b/l basilar rales abd - soft NT ND BS+; no flank tenderness ext - 1+ edema b/l, pulses 2+ b/l psych - a/o x 3 Results & Data Results & Data ([facility]) Vital Signs (Past 12 Hours) Vital Signs Temp Pulse Resp BP BP Pulse Ox 01/17/22 11:21 36.7 C 79 18 122/71 95 01/17/22 06:36 36.8 C 70 18 115/63 96 01/17/22 03:27 36.6 C 74 18 116/62 94 Laboratory Results Laboratory Results - last 24 hr 01/17/22 01/17/22 01/17/22 07:50 08:23 16:40 Sodium 138 Potassium 2.8 L Chloride 98 Carbon Dioxide 34 H Anion Gap 6 BUN 17 Creatinine 0.78 Est Cr Clr Drug Dosing 59.5 Est GFR ( Amer) 92.5 Est GFR (Non-Af Amer) 79.8 BUN/Creatinine Ratio 21.8 H Glucose 107 H Calcium 7.5 L Magnesium 1.0 L Iron Pending TIBC Pending Unsaturated IBC Pending Transferrin % Sat Pending Diagnostic Findings 01/15 urine cx negative b/l LE venous dopplers negative for DVT PG Care Time/CCT Total # of Minutes Spent Total Time Spent with Patient: Total time spent is greater than 50% in coordination of care (as documented) at patient's floor/unit and/or counseling patient: Coding Level of Care Code 37419 Subseq Hosp Care Lvl 3 Diagnoses Septic shock A41.9; R65.21 Aspiration pneumonia J69.0 Renal stone N20.0 Anasarca R60.1 MANDIE (acute kidney injury) N17.9 Lower extremity edema R60.0 Hypokalemia E87.6 Hyponatremia E87.1 Hypothyroidism E03.9 History of hyperparathyroidism Z86.39 Endogenous depression F33.2 Hypomagnesemia E83.42 Anemia D64.9 E. coli UTI N39.0; B96.20 DVT prophylaxis Z29.9
[2022-01-17 18:06] LABS: Magnesium 1.9 mg/dl (1.7-2.4); Potassium 3.3 mmol/L (3.5-5.1)
[2022-01-17 18:08] LABS: Ferritin 245.8 ng/ml (8-388)
[2022-01-17] MEDS: FUROSEMIDE INJ 20 MG/2 ML VIAL IV SCH (18:11)
[2022-01-17] MEDS ORDERED: POTASSIUM CHLORIDE CRTAB 20 MEQ TABCR PO ONE (20:00)
[2022-01-17 20:48] LABS: Folate (Folic Acid) 12.17 ng/ml (>5.38)
[2022-01-17 20:49] LABS: Vitamin B12 > 1500 pg/ml (180-914)
[2022-01-18] MEDS: traZODone HCL 50 MG TAB PO SCH (00:18)
[2022-01-18] MEDS: PIPERACILLIN/TAZOBACTAM 3.375 GM in DEXTROSE 5% 100 ML IV SCH (05:53)
[2022-01-18] MEDS: LEVOTHYROXINE SODIUM 50 MCG TABLET PO SCH (05:53)
[2022-01-18 06:42] LABS: Hemoglobin 8.9 g/dL (12.0-16.0); Mean Corpuscular Hemoglobin 31.7 pg (25-34); Mean Corpuscular Hgb Conc 34.2 g/dL (32-36); Mean Corpuscular Volume 92.5 fL (80-100); Mean Platelet Volume 9.5 fL (7.4-10.4); Platelet Count 372 K/uL (130-400); RDW Coefficient of Variation 14.6 % (11.5-14.5); RDW Standard Deviation 46.9 fL (36.4-46.3); Red Blood Count 2.81 M/uL (4.2-5.4); White Blood Count 15.66 K/uL (4.8-10.8)
[2022-01-18 07:05] LABS: BUN Creatinine Ratio 23.2 (10-20); Calcium 7.9 mg/dl (8.5-10.1); Creatinine Clr Calc Pharmacy 56.6 ml/min; Est GFR (Non-African American) 75.1 ml/min
[2022-01-18] MEDS: LACTOBACILLUS ACIDOPHILUS 1 GM PACK PO SCH ×3 (08:07→16:01)
[2022-01-18] MEDS: NYSTATIN SUSP 500,000 U/5 ML UDC MT SCH ×4 (08:07→20:02)
[2022-01-18] MEDS: ENOXAPARIN INJ 40 MG/0.4 ML SYR SQ SCH (08:08)
[2022-01-18] MEDS: CALCITRIOL 0.25 MCG CAPSULE PO SCH (08:08)
[2022-01-18] MEDS: PARoxetine HCL 10 MG TAB PO SCH (08:08)
[2022-01-18] MEDS: FUROSEMIDE INJ 20 MG/2 ML VIAL IV SCH ×2 (08:14→16:02)
[2022-01-18] MEDS: POTASSIUM CHLORIDE CRTAB 20 MEQ TABCR PO SCH ×2 (08:14→16:01)
[2022-01-18] MEDS: MAGNESIUM OXIDE 400 MG TAB PO SCH (09:24)
[2022-01-18] MEDS: levoFLOXacin 750 MG TAB PO SCH (09:24)
[2022-01-18] MEDS ORDERED: LOPERAMIDE HCL 2 MG CAP PO PRN (17:11)
--- NOTE | 2022-01-18 21:05 | Hospitalist Progress Note ---
Date of Service January 18, 2022 Assessment & Plan (1) Septic shock: Plan: 2nd obstructing left-sided kidney stones and E.coli UTI. Resolved. s/p Cystoscopy, left retrograde pyelogram with radiographic interpretation, left ureteroscopy, left ureteral stent placement. 01/10/22 blood cultures and urine culture with pansensitive e.coli. 01/12/22 repeat blood cultures negative. Was narrowed to rocephin IV, then changed to zosyn on 01/15/22 due to concern of aspiration pneumonia. Procal continues to trend down. Patient continues to clinically improve. Change to PO levaquin today to cover the blood/urine/lungs. 750mg po daily. IV levaquin same bioavailability as PO. Will need at least 14 days of antibiotic therapy to cover the septicemia. Day #1 is 01/12/22. Thus, antibiotic day #7 today. (2) Aspiration pneumonia: Plan: Suspected. Currently on Zosyn and Zithromax, day #4 of both. Change to levaquin -- will cover blood/urine and the lungs. (3) E. coli UTI: Plan: in the setting of obstructing kidney stones on left. see above/below. continue antibiotics. (4) Renal stone: Plan: Multiple left-sided obstructing kidney stones s/p stent placement hospital day #1. Definitive stone treatment post-discharge. (5) Anasarca: Plan: Most recent albumin 2.2. TSH earlier this stay wnl. s/p copious IV fluids early in the stay due to #1. Continue IV lasix diuresis. Consider echo. Consider repeat cxr in am tomorrow. Dopplers of legs negative for DVT. (6) MANDIE (acute kidney injury): Plan: Resolved Sepsis-associated ATN Peak Cr 5.2 now <1 (7) Lower extremity edema: Plan: New during the stay. LE venous duplex studies negative for DVT. Cont lasix. (8) Hypokalemia: Plan: 2nd to diuresis. Post-ATN diuretic phase also likely contributed. Replaced/resolved. (9) Hyponatremia: Plan: resolved. Lowest Na level 124. (10) Hypothyroidism: Plan: Continue synthroid. TSH several days ago wnl. (11) History of hyperparathyroidism: Plan: Calcium levels have been normal or low. Intact PTH 08/2021 was normal. No evidence of hyperparathyroidism at this time. 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 (13) Hypomagnesemia: Plan: replaced/resolved (14) Anemia: Plan: patient was anemic at time of presentation with Hb of 10.6. has been mildly anemic for many years B12, folate, and Fe studies all wnl. cbc in am for stability. thalaseemia?? consider Hb electrophoresis as outpatient. (15) DVT prophylaxis: Plan: lovenox 40mg daily Plan: insomnia - trazodone PT, OT evals completed pt progressing - hopefully will be able to return home rather than need rehab Admission and Anticipated Discharge Date Admission Date: January 11, 2022 Subjective feeling much better eating well breathing improved edema remains but improved no new complaints tele - NSR ambulating in room without difficulty better energy asks when she can d/c home Review of Systems Review of Systems: gen - no fevers or chills cv - no orthopnea; mild edema only GI - no N/V/abd pain pulm - scant cough Physical Exam Physical Exam: gen - NAD, pleasant, nontoxic neck - JVD resolved mouth - MMM heart - RRR, s1 s2, no murmur lungs - decreased BS bases; minimal b/l basilar rales abd - soft NT ND BS+; no flank tenderness ext - <1+ edema b/l, pulses 2+ b/l psych - a/o x 3 Results & Data Results & Data ([facility]) Vital Signs (Past 12 Hours) Vital Signs Temp Pulse Pulse Pulse Resp BP BP 01/18/22 18:38 37.0 C 76 16 105/60 01/18/22 14:55 95 H 01/18/22 11:00 37 C 80 18 106/66 Pulse Ox 01/18/22 18:38 94 01/18/22 14:55 01/18/22 11:00 96 Laboratory Results Laboratory Results - last 24 hr 01/18/22 01/18/22 01/18/22 06:09 06:09 Unknown WBC 15.66 H RBC 2.81 L Hgb 8.9 L Hct 26.0 L MCV 92.5 MCH 31.7 MCHC 34.2 RDW Std Deviation 46.9 H RDW Coeff of Tucker 14.6 H Plt Count 372 MPV 9.5 Sodium 138 Potassium 4.0 D Chloride 103 Carbon Dioxide 29 Anion Gap 6 BUN 19 Creatinine 0.82 Est Cr Clr Drug Dosing 56.6 Est GFR ( Amer) 87.0 Est GFR (Non-Af Amer) 75.1 BUN/Creatinine Ratio 23.2 H Glucose 102 H Calcium 7.9 L Stl C. diff Tox B Gene Negative Cdiff Gene PG Care Time/CCT Total # of Minutes Spent Total Time Spent with Patient: Total time spent is greater than 50% in coordination of care (as documented) at patient's floor/unit and/or counseling patient: Coding Level of Care Code 62697 Subseq Hosp Care Lvl 3 Diagnoses Septic shock A41.9; R65.21 Aspiration pneumonia J69.0 E. coli UTI N39.0; B96.20 Renal stone N20.0 Anasarca R60.1 MANDIE (acute kidney injury) N17.9 Lower extremity edema R60.0 Hypokalemia E87.6 Hyponatremia E87.1 Hypothyroidism E03.9 History of hyperparathyroidism Z86.39 Endogenous depression F33.2 Hypomagnesemia E83.42 Anemia D64.9 DVT prophylaxis Z29.9
[2022-01-19] MEDS: MELATONIN 3 MG TAB PO PRN (02:10)
[2022-01-19] MEDS: traZODone HCL 50 MG TAB PO SCH (02:10)
[2022-01-19 05:54] LABS: Hematocrit (blood only) 25.6 % (37-47); Hemoglobin 8.5 g/dL (12.0-16.0); Mean Corpuscular Hemoglobin 31.6 pg (25-34); Mean Corpuscular Hgb Conc 33.2 g/dL (32-36); Mean Corpuscular Volume 95.2 fL (80-100); Mean Platelet Volume 9.1 fL (7.4-10.4); Platelet Count 396 K/uL (130-400); RDW Coefficient of Variation 15.3 % (11.5-14.5); RDW Standard Deviation 50.3 fL (36.4-46.3); Red Blood Count 2.69 M/uL (4.2-5.4); White Blood Count 15.09 K/uL (4.8-10.8)
[2022-01-19] MEDS: LEVOTHYROXINE SODIUM 75 MCG TABLET PO SCH (06:05)
[2022-01-19 06:18] LABS: BUN Creatinine Ratio 22.7 (10-20); Calcium 8.5 mg/dl (8.5-10.1); Creatinine Clr Calc Pharmacy 47.8 ml/min; Est GFR (Non-African American) 61.3 ml/min; Magnesium 1.5 mg/dl (1.7-2.4); Potassium 4.7 mmol/L (3.5-5.1)
[2022-01-19] MEDS: levoFLOXacin 750 MG TAB PO SCH (07:37)
[2022-01-19] MEDS: POTASSIUM CHLORIDE CRTAB 20 MEQ TABCR PO SCH (07:37)
[2022-01-19] MEDS: PARoxetine HCL 10 MG TAB PO SCH (07:37)
[2022-01-19] MEDS: LACTOBACILLUS ACIDOPHILUS 1 GM PACK PO SCH ×3 (07:37→15:51)
[2022-01-19] MEDS: MAGNESIUM OXIDE 400 MG TAB PO SCH (07:37)
[2022-01-19] MEDS: ENOXAPARIN INJ 40 MG/0.4 ML SYR SQ SCH (07:38)
[2022-01-19] MEDS: NYSTATIN SUSP 500,000 U/5 ML UDC MT SCH ×4 (07:38→20:27)
[2022-01-19] MEDS: CALCITRIOL 0.25 MCG CAPSULE PO SCH (08:40)
[2022-01-19] MEDS ORDERED: FUROSEMIDE INJ 20 MG/2 ML VIAL IV ONE (10:42)
[2022-01-19] MEDS: MAGNESIUM SULFATE / D5W 1 GM/100 ML BAG IV SCH ×3 (11:23→15:09)
--- NOTE | 2022-01-19 11:53 | XRay Report ---
XR chest 2V PA/lateral CLINICAL HISTORY: pulm edema vs pneumonia vs atelectasis TECHNIQUE: 2 views of the chest were obtained. Comparison: Comparison is made to chest radiographs 01/13/2022 FINDINGS: No lines and tubes are seen. The cardiomediastinal silhouette is normal. The lungs are clear. Small b ilateral pleural effusions are seen. IMPRESSION: Small bilateral pleural effusions. ACT 112: Negative or not required by law. Electronically signed by: Andrea Simeon M.D. 01/19/2022 11:51 AM
[2022-01-19] MEDS ORDERED: FUROSEMIDE 20 MG TAB PO ONE (15:40)
--- NOTE | 2022-01-19 22:28 | Hospitalist Progress Note ---
Date of Service January 19, 2022 Assessment & Plan (1) Septic shock: Plan: RESOLVED. 2nd obstructing left-sided kidney stones and E.coli UTI. s/p Cystoscopy, left retrograde pyelogram with radiographic interpretation, left ureteroscopy, left ureteral stent placement. 01/10/22 blood cultures and urine culture with pansensitive e.coli. 01/12/22 repeat blood cultures negative. Was narrowed to rocephin IV, then changed to zosyn on 01/15/22 due to concern of aspiration pneumonia. Change to PO levaquin 750mg daily on 01/18/22 to cover the blood/urine/lungs. IV levaquin same bioavailability as PO. Will need at least 14 days of antibiotic therapy to cover the septicemia. Day #1 is 01/12/22. Thus, antibiotic day #8 today. (2) Aspiration pneumonia: Plan: Suspected. CXR obtained today - no pneumonia. Thus resolved. Any residual pneumonia, if present, will be adequately covered by levaquin. (3) E. coli UTI: Plan: in the setting of obstructing kidney stones on left. see above/below. continue antibiotics. (4) Renal stone: Plan: Multiple left-sided obstructing kidney stones s/p stent placement hospital day #1. Definitive stone treatment post-discharge. (5) Anasarca: Plan: Most recent albumin 2.2. TSH earlier this stay wnl. s/p copious IV fluids early in the stay due to #1. Continue IV lasix diuresis. Suspect we are near euvolemic status. CXR shows no pulm edema today. Dopplers of legs negative for DVT. (6) MANDIE (acute kidney injury): Plan: Resolved Sepsis-associated ATN Peak Cr 5.2 now <1 (7) Lower extremity edema: Plan: New during the stay. LE venous duplex studies negative for DVT. Cont lasix. Edema much improved w/ such. (8) Hypokalemia: Plan: 2nd to diuresis. Post-ATN diuretic phase also likely contributed. Replaced/resolved. (9) Hyponatremia: Plan: resolved. Lowest Na level 124. (10) Hypothyroidism: Plan: Continue synthroid. TSH several days ago wnl. (11) History of hyperparathyroidism: Plan: Calcium levels have been normal or low. Intact PTH 08/2021 was normal. No evidence of hyperparathyroidism at this time. 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 (13) Hypomagnesemia: Plan: replaced/resolved then low again due to lasix replace IV repeat level am (14) Anemia: Plan: patient was anemic at time of presentation with Hb of 10.6. has been mildly anemic for many years B12, folate, and Fe studies all wnl. cbc in am for stability. thalaseemia?? consider Hb electrophoresis as outpatient. (15) DVT prophylaxis: Plan: lovenox 40mg daily Plan: insomnia - trazodone PT, OT evals completed - ok to return home suspect we can d/c her home tomorrow am, 01/20/22 Admission and Anticipated Discharge Date Admission Date: January 11, 2022 Subjective patient feeling well no new complaints ambulating without dyspnea no orthopnea minimal to no cough eating well no back/abd pain still some LE edema tele overnight wnl Review of Systems Review of Systems: gen - no fevers/chills cv - no orthopnea/cp hent - no dysphagia GI - no N/V; diarrhea present but no worse than previous - no urinary symptoms Physical Exam Physical Exam: gen - NAD, pleasant neck - JVD resolved mouth - MMM heart - RRR, s1 s2, no murmur lungs - decreased BS bases; no rales or wheeze abd - soft NT ND BS+; no flank tenderness ext - trace edema b/l, pulses 2+ b/l psych - a/o x 3 Results & Data Results & Data ([facility]) Vital Signs (Past 12 Hours) Vital Signs Temp Pulse Pulse Pulse Resp BP BP 01/19/22 19:32 36.6 C 98 H 18 105/65 01/19/22 15:25 36.9 C 76 16 99/64 L 01/19/22 15:15 86 01/19/22 11:00 36.7 C 81 18 115/63 Pulse Ox 01/19/22 19:32 97 01/19/22 15:25 96 01/19/22 15:15 01/19/22 11:00 96 Laboratory Results Laboratory Results - last 24 hr 01/19/22 01/19/22 05:35 05:35 WBC 15.09 H RBC 2.69 L Hgb 8.5 L Hct 25.6 L MCV 95.2 MCH 31.6 MCHC 33.2 RDW Std Deviation 50.3 H RDW Coeff of Tucker 15.3 H Plt Count 396 MPV 9.1 Sodium 138 Potassium 4.7 Chloride 105 Carbon Dioxide 26 Anion Gap 7 BUN 22 Creatinine 0.97 Est Cr Clr Drug Dosing 47.8 Est GFR ( Amer) 71.0 Est GFR (Non-Af Amer) 61.3 BUN/Creatinine Ratio 22.7 H Glucose 102 H Calcium 8.5 Magnesium 1.5 L PG Care Time/CCT Total # of Minutes Spent Total Time Spent with Patient: Total time spent is greater than 50% in coordination of care (as documented) at patient's floor/unit and/or counseling patient: Coding Level of Care Code 61453 Subseq Hosp Care Lvl 2 Diagnoses Septic shock A41.9; R65.21 Aspiration pneumonia J69.0 E. coli UTI N39.0; B96.20 Renal stone N20.0 Anasarca R60.1 MANDIE (acute kidney injury) N17.9 Lower extremity edema R60.0 Hypokalemia E87.6 Hyponatremia E87.1 Hypothyroidism E03.9 History of hyperparathyroidism Z86.39 Endogenous depression F33.2 Hypomagnesemia E83.42 Anemia D64.9 DVT prophylaxis Z29.9
[2022-01-20] MEDS: traZODone HCL 50 MG TAB PO SCH (04:02)
[2022-01-20] MEDS: LEVOTHYROXINE SODIUM 50 MCG TABLET PO SCH (06:31)
[2022-01-20 07:22] LABS: Hematocrit (blood only) 26.5 % (37-47); Hemoglobin 8.9 g/dL (12.0-16.0); Mean Corpuscular Hemoglobin 32.2 pg (25-34); Mean Corpuscular Hgb Conc 33.6 g/dL (32-36); Mean Platelet Volume 9.1 fL (7.4-10.4); Platelet Count 495 K/uL (130-400); RDW Coefficient of Variation 15.8 % (11.5-14.5); RDW Standard Deviation 52.7 fL (36.4-46.3); Red Blood Count 2.76 M/uL (4.2-5.4); White Blood Count 14.78 K/uL (4.8-10.8)
[2022-01-20 07:49] LABS: BUN Creatinine Ratio 25.5 (10-20); Calcium 9.1 mg/dl (8.5-10.1); Creatinine Clr Calc Pharmacy 47.3 ml/min; Est GFR (African American) 70.2 ml/min; Est GFR (Non-African American) 60.5 ml/min; Magnesium 1.9 mg/dl (1.7-2.4); Potassium 4.7 mmol/L (3.5-5.1)
[2022-01-20] MEDS: LACTOBACILLUS ACIDOPHILUS 1 GM PACK PO SCH ×2 (07:50→11:23)
[2022-01-20] MEDS: NYSTATIN SUSP 500,000 U/5 ML UDC MT SCH ×2 (07:50→11:23)
[2022-01-20] MEDS: levoFLOXacin 750 MG TAB PO SCH (07:50)
[2022-01-20] MEDS: MAGNESIUM OXIDE 400 MG TAB PO SCH (07:50)
[2022-01-20] MEDS: ENOXAPARIN INJ 40 MG/0.4 ML SYR SQ SCH (07:51)
[2022-01-20] MEDS: CALCITRIOL 0.25 MCG CAPSULE PO SCH (07:51)
[2022-01-20] MEDS: PARoxetine HCL 10 MG TAB PO SCH (07:51)
--- NOTE | 2022-01-20 11:01 | Discharge Summary ---
Date of Service January 20, 2022 Admission HPI Per Admitting Provider Chelsey Cm is a 66yo female with history of hypothyroidism, hyperparathyroidism presenting with septic shock. Patient reports developing nausea with several episodes of non-bloody/non-bilious emesis 3 days ago. She has had intermittent fever ranging 99-102 degrees over the last 3 days with intermittent rigors as well. She has had mild right sided abdominal pain, back pain and diarrhea as well. No additional complaints. She denies chest pain, cough, SOB, denies dysuria. She has not been eating well - last meal was 01/09/22 at 02:00. She has been trying to drink fluids. Patient hypotensive in the ER with BP ranging 63-73 / 35-44. She received 3.5L of NSS with minimal improvement in blood pressure. Levophed initiated. Patient is awake and alert, answering questions appropriately. No additional co mplaints at this time. ER Course: NSS x 3.5L, Zosyn 4.5gm, Dapto 325mg, Levophed Discharge Exam gen - NAD, pleasant neck - JVD resolved mouth - MMM heart - RRR, s1 s2, no murmur lungs - decreased BS bases; no rales or wheeze abd - soft NT ND BS+; no flank tenderness ext - trace edema b/l, pulses 2+ b/l psych - a/o x 3 Discharge Data Allergies Allergy/AdvReac Type Severity Reaction Status Date / Time No Known Drug Allergies Allergy nkda Verified 01/10/22 23:06 Consultations 01/10/22 23:05 ED Decision to Admit Stat 01/11/22 01:06 Consult Division Head Routine Consult Urology Routine Procedures Performed Operation Date: 01/11/22 02:00 Actual Procedures p Cystoscopy, Left Retrograde Pylegram, Left Ureteroscopy, Left Ureteral Stent Placement, [place] Catheter Exchange(Left) - Juan Carlos Lopez MD Ordered Studies 01/10/22 21:49 CT abd pelvis wo con Urgent 01/11/22 01:06 US liver Urgent 01/11/22 01:18 FL retrograde includes kub Routine 01/11/22 02:16 US point of care ultrasound Urgent 01/15/22 11:02 CT abd pelvis IV con only Routine 01/16/22 14:22 US venous doppler LE Urgent Hospital Course (1) Septic shock: RESOLVED. 2nd obstructing left-sided kidney stones and E.coli UTI. s/p Cystoscopy, left retrograde pyelogram with radiographic interpretation, left ureteroscopy, left ureteral stent placement. 01/10/22 blood cultures and urine culture with pansensitive e.coli. 01/12/22 repeat blood cultures negative. Was narrowed to rocephin IV, then changed to zosyn on 01/15/22 due to concern of aspiration pneumonia. Change to PO levaquin 750mg daily on 01/18/22 to cover the blood/urine/lungs. IV levaquin same bioavailability as PO. Will need at least 14 days of antibiotic therapy to cover the septicemia. Day #1 is 01/12/22. Thus, antibiotic day #8 today. (2) Aspiration pneumonia: Suspected. CXR obtained today - no pneumonia. Thus resolved. Any residual pneumonia, if present, will be adequately covered by levaquin. (3) E. coli UTI: in the setting of obstructing kidney stones on left. see above/below. continue antibiotics. (4) Renal stone: Multiple left-sided obstructing kidney stones s/p stent placement hospital day #1. Definitive stone treatment post-discharge. (5) Anasarca: Most recent albumin 2.2. TSH earlier this stay wnl. s/p copious IV fluids early in the stay due to #1. Continue IV lasix diuresis. Suspect we are near euvolemic status. CXR shows no pulm edema today. Dopplers of legs negative for DVT. (6) MANDIE (acute kidney injury): Resolved Sepsis-associated ATN Peak Cr 5.2 now <1 (7) Lower extremity edema: New during the stay. LE venous duplex studies negative for DVT. Cont lasix. Edema much improved w/ such. (8) Hypokalemia: 2nd to diuresis. Post-ATN diuretic phase also likely contributed. Replaced/resolved. (9) Hyponatremia: resolved. Lowest Na level 124. (10) Hypothyroidism: Continue synthroid. TSH several days ago wnl. (11) History of hyperparathyroidism: Calcium levels have been normal or low. Intact PTH 08/2021 was normal. No evidence of hyperparathyroidism at this time. 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 (13) Hypomagnesemia: replaced/resolved then low again due to lasix replace IV repeat level am (14) Anemia: patient was anemic at time of presentation with Hb of 10.6. has been mildly anemic for many years B12, folate, and Fe studies all wnl. cbc in am for stability. thalaseemia?? consider Hb electrophoresis as outpatient. (15) DVT prophylaxis: lovenox 40mg daily insomnia - trazodone PT, OT evals completed - ok to return home suspect we can d/c her home tomorrow am, 01/20/22 Home Health Attestation I certify that this patient is under my care and that I, or a physicians grooming assistant working with me, had a face to-face encounter that meets the home health [id number] encounter requirements with this patient. The encounter with the patient was in whole, or in part, for the following medical condition, which is the primary reason for home health care (list medical condition): septic shock I certify that, based on my findings, the following services are medically necessary home health services: My clinical findings support the need for the above services because: OT Assess ADL Status and Restore Function w ADLs PT Eval for Safety, Gait Training, Assistive Devices Skilled Nsg Assessment Skilled Nsg Assess Pt Illness, Disease and Sx Monitoring S/S to Report to Provider Further, I certify that my clinical findings support that this patient is homebound (i.e. absences from home require considerable and taxing effort and are for medical reasons or christianity services or infrequently or of short duration when for other reasons) because: Assistance of 1 Person for Ambulation/Activities Supportive Aid - Walker Certification for Home Health Services: Based on the above findings, I certify that this patient is confined to the home and needs intermittent fci care, physical therapy and/or speech th erapy or continues to need occupational therapy. The patient is under my care, and I have initiated the establishment of the plan of care. This patient will be followed by a physician who will periodically review the plan of care. Discharge Plan Discharge Items Reason For Visit: SEPTIC SHOCK Follow-up/Referrals: Gamalile Santos MD [Primary Care Provider] - Medications and DC Order Prescriptions: No Action paroxetine HCl 10 mg tablet 10 mg PO DAILY Qty: 90 RF: 3 levothyroxine 75 mcg tablet See Rx Instructions PO DAILY Qty: 15 RF: 5 calcitriol 0.5 mcg capsule 1 mcg PO DAILY Qty: 60 RF: 2 levothyroxine 50 mcg tablet See Rx Instructions PO DAILY Qty: 15 RF: 3 ondansetron HCl 4 mg tablet 4 mg PO TID PRN (Reason: nausea and vomiting) 3 Days Qty: 10 RF: 0 cyanocobalamin (vitamin B-12) 2,000 mcg tablet 2,000 mcg PO DAILY RF: 0 calcium carbonate 600 mg calcium (1,500 mg) tablet 1,200 mg PO DAILY RF: 0 ascorbic acid (vitamin C) 500 mg capsule 500 mg PO DAILY RF: 0 cholecalciferol (vitamin D3) 2,000 unit tablet 2,000 units PO DAILY Qty: 90 RF: 0 [id number] Tablet 1 tab PO DAILY RF: 0 acetaminophen [Tylenol Extra Strength] 500 mg Tablet 1,000 mg PO Q6H PRN (Reason: Fever Or Pain) RF: 0 Admission Data Admit Date/Time: 01/11/22 00:09 Attending Provider: Adi Rizo Admit Provider: Jazmín Guerrero Primary Care Provider: Gamaliel Santos Other Providers: Jazmín Guerrero ; Ronnie Tracey ; Juan Carlos Lopez. ; [facility] Coding Diagnoses Septic shock A41.9; R65.21 Aspiration pneumonia J69.0 E. coli UTI N39.0; B96.20 Renal stone N20.0 Anasarca R60.1 MANDIE (acute kidney injury) N17.9 Lower extremity edema R60.0 Hypokalemia E87.6 Hyponatremia E87.1 Hypothyroidism E03.9 History of hyperparathyroidism Z86.39 Endogenous depression F33.2 Hypomagnesemia E83.42 Anemia D64.9 DVT prophylaxis Z29.9
== END 2022-01-20 14:34 | disposition home health service (06) | DRG 853 ==
LOC: ED 20:21 → SUATTDRO 01-11 00:09 → 1E 01-11 00:09 → 2W 01-14 16:03
DX: E87.1 Hypo-osmolality and hyponatremia; E89.0 Postprocedural hypothyroidism; D69.59 Other secondary thrombocytopenia; R60.1 Generalized edema; E83.42 Hypomagnesemia; G93.40 Encephalopathy, unspecified; Z79.890 Hormone replacement therapy; N39.0 Urinary tract infection, site not specified; Z83.3 Family history of diabetes mellitus; N13.2 Hydronephrosis with renal and ureteral calculous obstruction; D64.9 Anemia, unspecified; K83.09 Other cholangitis; N17.0 Acute kidney failure with tubular necrosis; E87.2 Acidosis; J96.00 Acute respiratory failure, unspecified whether with hypoxia or hypercapnia; E86.0 Dehydration; E87.6 Hypokalemia; F33.2 Major depressive disorder, recurrent severe without psychotic features; A41.51 Sepsis due to Escherichia coli [E. coli]; R65.21 Severe sepsis with septic shock; E83.51 Hypocalcemia